=== PATIENT | female | born 1960 | race Caucasian/White ===

== ENCOUNTER 2017-03-02 15:06 | Inpatient (IN) | payer MEDICARE ==
[~2017-03-02] VITALS: Ht 165.1 cm; Wt 110.0 kg
[~2017-03-02 15:06] MED LIST: AMBIEN10 MG PO; ASPIRIN EC81 MG PO; ATENOLOL25 MG PO; ATORVASTATIN CA20 MG PO; BACLOFEN10 MG PO; CLONAZEPAM1 M1 PO; DICYCLOMINE HCL10 MG PO; DOXEPIN HCL25 MG PO; EFFEXOR XR150 MG PO; LEVOTHYROXINE100 MCG PO; NABUMETONE750 MG PO; NEXIUM40 MG PO; OXYCONTIN10 MG PO; TRIAMTERENE-HC1 EAC1 PO
[2017-03-02] MEDS ORDERED: SODIUM CHLORIDE 0.9% 500ML 500 ML IV STA (15:17)
[2017-03-02] MEDS ORDERED: ONDANSETRON HCL INJ 2 MG/ML VIAL IV STA (15:17)
[2017-03-02] MEDS ORDERED: MORPHINE SULFATE 4 MG/ML SYR IV STA (15:17)
[2017-03-02] MEDS ORDERED: METHYLNALTREXONE BROMIDE 12 MG/0.6 ML VIAL SQ SCH ×2 (15:30→15:45)
[2017-03-02] MEDS ORDERED: DIATRIZOATE MEGL/DIATRIZOA SOD 30 ML BTL PO ONE (15:39)
[2017-03-02 16:27] LABS: BASOPHILS # (AUTO) 0.1 (0.0-0.1); BASOPHILS % 0.4 % (0.0-1.0); EOSINOPHILS # (AUTO) 0.1 (0.0-0.4); EOSINOPHILS % 0.7 % (0.0-6.0); HEMATOCRIT 49.1 % (34.2-44.1); HEMOGLOBIN 17.8 g/dL (12.0-16.0); LYMPHOCYTES # (AUTO) 2.4 (1.0-3.2); LYMPHOCYTES % 18.5 % (18.0-39.1); MEAN CORPUSCULAR HEMOGLOBIN 32.1 pg (28-32); MEAN CORPUSCULAR HGB CONC 36.3 g/dL (31-35); MEAN CORPUSCULAR VOLUME 88.5 fL (81-99); MONOCYTES # (AUTO) 0.7 (0.2-0.8); MONOCYTES % 5.1 % (4.4-11.3); NEUTROPHILS # (AUTO) 9.6 (2.1-6.9); NEUTROPHILS % 74.8 % (38.7-80.0); PLATELET COUNT 377 x10e3/uL (140-360); RED BLOOD COUNT 5.55 x10e6/uL (3.6-5.1); RED CELL DISTRIBUTION WIDTH 11.8 % (11.7-14.4)
[2017-03-02 16:44] LABS: ALANINE AMINOTRANSFERASE 24 IU/L (0-55); ALBUMIN 4.6 g/dL (3.5-5.0); ALBUMIN/GLOBULIN RATIO 1.2 (0.8-2.0); ALKALINE PHOSPHATASE 94 IU/L (40-150); ANION GAP 19.8 mmol/L (8-16); BLOOD UREA NITROGEN 13 mg/dL (7-26); BUN/CREATININE RATIO 14 (6-25); CALCIUM 10.1 mg/dL (8.4-10.2); CARBON DIOXIDE 25 mmol/L (22-29); CHLORIDE 96 mmol/L (98-107); CREATINE KINASE 66 IU/L (29-168); CREATININE, SERUM 0.93 mg/dL (0.57-1.11); EST GLOMERULAR FILTRATION RATE > 60 ML/MIN (60-); GLUCOSE 122 mg/dL (74-118); LIPASE 11 U/L (8-78); SODIUM 138 mmol/L (136-145)
[2017-03-02 16:46] LABS: POTASSIUM 2.8 mmol/L (3.5-5.1)
[2017-03-02] MEDS ORDERED: MORPHINE SULFATE 2 MG/ML SYR ONE (16:46)
[2017-03-02 16:51] LABS: TROPONIN I 0.009 ng/mL (0-0.300)
[2017-03-02] MEDS ORDERED: POTASSIUM CHLORIDE 20 MEQ TAB CR PO NR (17:00)
[2017-03-02] MEDS ORDERED: KETOROLAC TROMETHAMINE 30 MG/ML VIAL IV STA (17:02)
[2017-03-02] MEDS ORDERED: PIPER-TAZ 3.375 GM 50 ML IV STA (17:51)
--- NOTE | 2017-03-02 18:01 | Diagnostic Imaging Report ---
EXAMINATION: CHEST SINGLE (PORTABLE) INDICATION: Abdominal pain COMPARISON: None FINDINGS: AP view TUBES and LINES: None. LUNGS: Lungs are not well inflated. Lungs are clear. There is no evidence of pneumonia or pulmonary edema. PLEURA: No pleural effusion or pneumothorax. HEART AND MEDIASTINUM: The cardiomediastinal silhouette is unremarkable. BONES AND SOFT TISSUES: No acute osseous lesion. Anterior cervical fusion plate. Right supraclavicular surgical clips. UPPER ABDOMEN: No free air under the diaphragm. IMPRESSION: Hypoinflated lungs. No acute thoracic abnormality. Signed by: Dr. Bhargav Oliveira M.D. on 03/02/2017 5:58 PM
[2017-03-02] MEDS ORDERED: POTASSIUM CHLORIDE 20 MEQ TAB CR PO STA (18:05)
[2017-03-02] MEDS ORDERED: SODIUM CHLORIDE 0.9% 50ML 50 ML ONE (18:06)
[2017-03-02] MEDS ORDERED: IOPAMIDOL 370 MG/ML 200 ML INFUS..BTL INJ ONE (18:06)
--- NOTE | 2017-03-02 18:20 | Diagnostic Imaging Report ---
EXAM: CT Abdomen and Pelvis WITH contrast INDICATION: \S\r/o divertic sbo appy etc COMPARISON: None. TECHNIQUE: Abdomen and pelvis were scanned utilizing a multidetector helical scanner from the lung base to the pubic symphysis after administration of IV contrast. Coronal and sagittal reformations were obtained. Routine protocol was performed. Scan was performed when during portal venous phase. IV CONTRAST: 100 mL of Isovue 370 ORAL CONTRAST: Gastrografin COMPLICATIONS: None RADIATION DOSE: Total DLP: 753.7 mGy*cm Estimated effective dose: (DLP x 0.015 x size factor) mSv CTDIvol has been reviewed. It is below the limits set by the Radiation Protocol Committee (RPC). FINDINGS: LINES and TUBES: None. LOWER THORAX: Unremarkable HEPATOBILIARY: 0.4 cm too small to characterize hypodensity in segment 4A of the liver (series 2 image 12). No biliary ductal dilation. GALLBLADDER: No radio-opaque stones or sludge. No wall thickening. Gallbladder is distended measuring at least 9.8 cm in length. SPLEEN: No splenomegaly. PANCREAS: No focal masses or ductal dilatation. ADRENALS: No adrenal nodules KIDNEYS/URETERS: Kidneys enhance symmetrically. No hydronephrosis. No cystic or solid mass lesions. No stones. GI TRACT: Majority of the inflammatory changes appears to be centered around the sigmoid colon. However, there are inflammatory changes throughout the abdomen and pelvis. Appendix is partially visualized with appendicoliths but is not distended or have wall thickening. Ascending colon is distended measuring 7.3 cm and transverse colon measures 6.2 cm. There is however no wall thickening or surrounding inflammatory changes. There are inflammatory changes in the left paracolic gutter along the descending colon extending to the sigmoid colon. Remaining small bowel is decompressed. PELVIC ORGANS/BLADDER: Unremarkable. LYMPH NODES: No lymphadenopathy. VESSELS: Unremarkable. PERITONEUM / RETROPERITONEUM: Mild free fluid around the liver, spleen, and the deep pelvis. Scattered free air. BONES: Posterior fusion with transpedicular screws and interconnecting rods at L3 and L4 vertebral bodies. Previous fusion rods and screws extending through L5 vertebral body has been removed. Good osseous fusion at L4-L5 with bone graft. Severe degenerative changes at L2-L3 with severe disc space narrowing and erosive changes. L3 and L4 hemilaminectomy changes. Bony defect in the left iliac crest, likely from bone graft harvesting. SOFT TISSUES: Pelvic floor prolapse. IMPRESSION: 1. Free air free fluid in the abdomen and pelvis. Majority of inflammatory changes is centered around the sigmoid colon, likely representing perforated diverticulitis. 2. Appendix is partially visualized without definite evidence of appendicitis. 3. Distended ascending and transverse colon, likely related to ileus. 4. Gallbladder hydrops without definite stones. 5. Pelvic floor prolapse. Results were discussed with Luis Manuel Su ENVIRONMENTAL SAMPLER by Dr. Oliveira on 03/02/2017 at 6:15 PM. Signed by: Dr. Bhargav Oliveira M.D. on 03/02/2017 6:17 PM
[2017-03-02 18:28] LABS: BILIRUBIN,URINE 1+ (NEGATIVE); KETONES,URINE NEGATIVE (NEGATIVE); LEUKOCYTE ESTERASE ,URINE NEGATIVE (NEGATIVE); NITRITE,URINE NEGATIVE (NEGATIVE); URINE UROBILINOGEN 0.2 mg/dL (0.2 - 1)
[2017-03-02 18:31] LABS: CLARITY,URINE SL CLOUDY (CLEAR); COLOR,URINE YELLOW (YELLOW); PROTEIN,URINE DIPSTICK TRACE (NEGATIVE)
[2017-03-02] MEDS ORDERED: VANCOMYCIN 1GM/NS 250 ML 250 ML IV STA (18:33)
[2017-03-02 18:41] LABS: EPITHELIAL CELLS,URINE RARE /LPF
[2017-03-02] MEDS ORDERED: METRONIDAZOLE 500MG/NS 100ML 100 ML IV SCH ×3 (18:45→22:00)
[2017-03-02] MEDS ORDERED: SODIUM CHLORIDE 0.9% 1000ML 1,000 ML IV SCH ×5 (18:48→23:15)
[2017-03-02] MEDS ORDERED: MORPHINE SULFATE 2 MG/ML SYR IV PRN (19:00)
[2017-03-02] MEDS ORDERED: ONDANSETRON HCL INJ 2 MG/ML VIAL IV PRN (19:00)
[2017-03-02] MEDS ORDERED: SODIUM CHLORIDE FLUSH 10 ML SYR INJ PRN (19:00)
[2017-03-02] MEDS ORDERED: MORPHINE SULFATE 5 MG/ML VIAL IV PRN (19:15)
[2017-03-02] MEDS ORDERED: HYDROMORPHONE 1MG/1ML INJ IV STA ×2 (19:41→20:05)
[2017-03-02] MEDS ORDERED: HYDROMORPHONE 2MG/ML INJ IV SCH ×2 (19:45→20:30)
[2017-03-02] MEDS: METRONIDAZOLE 500MG/NS 100ML 100 ML IV SCH (19:59)
[2017-03-02] MEDS ORDERED: VANCOMYCIN 1GM/NS 250 ML 250 ML IV SCH (21:00)
[2017-03-02] MEDS ORDERED: PIPER-TAZ 3.375 GM 50 ML IV SCH (22:00)
[2017-03-02] MEDS ORDERED: SODIUM CHLORIDE 0.9% 1000ML 1,000 ML IV ONE (22:45)
[2017-03-02] MEDS ORDERED: MORPHINE SULFATE 5 MG/ML VIAL IV ONE (22:45)
[2017-03-02] MEDS ORDERED: POTASSIUM CHLORIDE 20MEQ/100ML 200 ML IV ONE (22:45)
[2017-03-02 22:47] LABS: BASOPHILS % 1.3 % (0.0-1.0); HEMATOCRIT 56.9 % (34.2-44.1); HEMOGLOBIN 20.3 g/dL (12.0-16.0); LYMPHOCYTES # (AUTO) 0.9 (1.0-3.2); LYMPHOCYTES % 37.2 % (18.0-39.1); MEAN CORPUSCULAR HEMOGLOBIN 32.3 pg (28-32); MEAN CORPUSCULAR HGB CONC 35.7 g/dL (31-35); MEAN CORPUSCULAR VOLUME 90.5 fL (81-99); MONOCYTES # (AUTO) 0.2 (0.2-0.8); MONOCYTES % 6.3 % (4.4-11.3); NEUTROPHILS # (AUTO) 1.3 (2.1-6.9); NEUTROPHILS % 54.8 % (38.7-80.0); PLATELET COUNT 381 x10e3/uL (140-360); RED BLOOD COUNT 6.29 x10e6/uL (3.6-5.1)
[2017-03-02 23:06] LABS: ANION GAP 24.5 mmol/L (8-16); CALCIUM 8.6 mg/dL (8.4-10.2); CREATININE, SERUM 1.21 mg/dL (0.57-1.11)
[2017-03-02 23:09] LABS: POTASSIUM 2.5 mmol/L (3.5-5.1)
[2017-03-02 23:10] LABS: ALBUMIN 3.3 g/dL (3.5-5.0)
[2017-03-02 23:13] LABS: INR 0.93; PARTIAL THROMBOPLASTIN TIME 22.6 seconds (23.8-35.5); PROTHROMBIN TIME 12.9 seconds (11.9-14.5)
[2017-03-02] MEDS ORDERED: PIPER-TAZ 3.375 GM 50 ML IV ONE (23:30)
[2017-03-02] MEDS ORDERED: LACTATED RINGER'S 1,000 ML ONE (23:30)
[2017-03-02] MEDS ORDERED: LACTATED RINGER'S 1,000 ML IV ONE (23:30)
[2017-03-03] VITALS (135 sets, daily range): BP systolic 0–162; BP diastolic -1–136
[2017-03-03] MEDS ORDERED: HEPARIN SOD/SOD CHLORIDE 1,000 ML ONE (00:29)
[2017-03-03] MEDS ORDERED: HYDROMORPHONE 1MG/1ML INJ IV PRN (03:15)
[2017-03-03] MEDS ORDERED: SODIUM BICARBONATE 8.4% SYRING 100 ML ONE ×2 (03:51→05:49)
[2017-03-03] MEDS ORDERED: SODIUM BICARBONATE 8.4% INJ 50 ML SYR IV STA ×2 (03:56→05:55)
[2017-03-03] MEDS: SODIUM CHLORIDE 0.9% 250ML IRRIG IR SCH ×6 (04:12→23:46)
[2017-03-03] MEDS ORDERED: ALBUTEROL SULF 0.083% NEB SOLN 3 ML NEB NEB STA (04:20)
[2017-03-03] MEDS ORDERED: IPRATROPIUM BROMIDE 0.02% 2.5 ML NEB NEB STA (04:20)
[2017-03-03] MEDS: SODIUM CHLORIDE 0.9% 1000ML 1,000 ML IV SCH ×5 (04:24→17:34)
[2017-03-03 04:39] LABS: ABG HCO3 14 mmol/L (23-28); ABG PCO2 42 mmHg (41-51); ABG PH 7.14 (7.31-7.41); ABG PO2 76 mmHg (80-105)
[2017-03-03 04:43] LABS: ABG HCO3 21 mmol/L (23-28); ABG PCO2 46 mmHg (41-51); ABG PH 7.26 (7.31-7.41); ABG PO2 64 mmHg (80-105)
[2017-03-03] MEDS: NOREPINEPHRINE BITARTRATE/ NS 250 ML IV PRN ×2 (04:44→22:03)
[2017-03-03 04:53] LABS: BASOPHILS % 0.9 % (0.0-1.0); EOSINOPHILS % 0.5 % (0.0-6.0); HEMATOCRIT 45.7 % (34.2-44.1); LYMPHOCYTES % 46.3 % (18.0-39.1); MEAN CORPUSCULAR HEMOGLOBIN 32.2 pg (28-32); MEAN CORPUSCULAR HGB CONC 35.7 g/dL (31-35); MEAN CORPUSCULAR VOLUME 90.3 fL (81-99); MONOCYTES # (AUTO) 0.1 (0.2-0.8); MONOCYTES % 5.1 % (4.4-11.3); NEUTROPHILS % 46.7 % (38.7-80.0); RED BLOOD COUNT 5.06 x10e6/uL (3.6-5.1); RED CELL DISTRIBUTION WIDTH 12.4 % (11.7-14.4)
[2017-03-03 04:55] LABS: HEMOGLOBIN 16.3 g/dL (12.0-16.0)
[2017-03-03 04:56] LABS: PLATELET COUNT 323 x10e3/uL (140-360)
[2017-03-03 05:07] LABS: ALBUMIN 1.8 g/dL (3.5-5.0); ALBUMIN/GLOBULIN RATIO 0.9 (0.8-2.0); ANION GAP 13.6 mmol/L (8-16)
[2017-03-03 05:13] LABS: CALCIUM 6.8 mg/dL (8.4-10.2); POTASSIUM 2.6 mmol/L (3.5-5.1)
[2017-03-03] MEDS ORDERED: POTASSIUM CHLORIDE 20MEQ/100ML 200 ML ONE (05:28)
[2017-03-03] MEDS ORDERED: CALCIUM CHLORIDE 10% SYRINGE 10 ML IV ONE (05:29)
[2017-03-03] MEDS ORDERED: POTASSIUM CHLORIDE 20MEQ/100ML 200 ML IV ONE ×2 (05:30→18:00)
[2017-03-03] MEDS ORDERED: CALCIUM CHLORIDE 13.6 MEQ in SODIUM CHLORIDE 0.9% 100 ML 100 ML IV ONE (05:30)
[2017-03-03 05:50] LABS: ABG PCO2 37 mmHg (41-51); ABG PH 7.17 (7.31-7.41)
[2017-03-03 05:51] LABS: ABG HCO3 14 mmol/L (23-28); ABG PO2 67 mmHg (80-105)
[2017-03-03] MEDS: PANTOPRAZOLE 40 MG 10ML VIAL IV SCH (05:54)
[2017-03-03] MEDS ORDERED: PIPER-TAZ 3.375 GM 50 ML IV SCH (06:00)
[2017-03-03] MEDS ORDERED: VANCOMYCIN 1GM/NS 250 ML 250 ML IV SCH (06:00)
[2017-03-03] MEDS ORDERED: MEROPENEM 1GM 100 ML IV SCH (06:00)
[2017-03-03] MEDS: MEROPENEM 1 GM VIAL IV SCH ×3 (07:05→21:34)
--- NOTE | 2017-03-03 07:12 | Diagnostic Imaging Report ---
EXAMINATION: CHEST SINGLE (PORTABLE) INDICATION: Tube placement COMPARISON: 03/02/2017 FINDINGS: AP view TUBES and LINES: Interval placement of endotracheal, NG tube and right IJ central line catheter. The NG tube tip appears within the left upper quadrant. Advancement is recommended. LUNGS: Lungs are not well inflated. There are bibasilar atelectasis. There is no evidence of pneumonia or pulmonary edema. PLEURA: No pleural effusion or pneumothorax. HEART AND MEDIASTINUM: The cardiomediastinal silhouette is unremarkable. BONES AND SOFT TISSUES: No acute osseous lesion. Anterior cervical fusion plate and surgical clips are visualized. Right supraclavicular surgical clips. UPPER ABDOMEN: No free air under the diaphragm. IMPRESSION: No acute intrathoracic abnormality. Tubes and lines are in good position. NG tube can be advanced Signed by: Dr. Erlin Kelly M.D. on 03/03/2017 7:08 AM
[2017-03-03] MEDS ORDERED: MIDAZOLAM HCL 2 MG/2 ML VIAL IV ONE (07:30)
[2017-03-03] MEDS ORDERED: SODIUM CHLORIDE 0.9% 1000ML 1,000 ML IV ONE ×5 (07:30→21:45)
[2017-03-03] MEDS ORDERED: LORAZEPAM 1 MG TAB PO ONE (07:30)
[2017-03-03] MEDS ORDERED: ALBUMIN 5% 250ML IV ONE (07:30)
[2017-03-03] MEDS ORDERED: ALBUMIN HUMAN 50 ML IV ONE ×2 (07:45→16:48)
[2017-03-03] MEDS: LORAZEPAM 1 MG TAB PO SCH ×3 (07:53→18:02)
[2017-03-03] MEDS: VASOPRESSIN 100 UNIT in DEXTROSE 5% 100ML 100 ML IV SCH (08:21)
[2017-03-03 08:28] LABS: BAND NEUTROPHILS % (MANUAL) 4 %; BLAST CELLS % MANUAL 2; EOSINOPHILS % (MANUAL) 2 % (0-7); LYMPHOCYTES % (MANUAL) 35 % (19-48); MONOCYTES % (MANUAL) 5 % (3.4-9.0); NEUTROPHILS % (MANUAL) 41 % (40-74)
[2017-03-03 08:30] LABS: ANISOCYTOSIS SLIGHT; PLATELET ESTIMATE ADEQUATE; PLATELET MORPHOLOGY COMMENT FEW LARGE; RBC MORPHOLOGY COMMENT NORMAL
[2017-03-03] MEDS ORDERED: FAMOTIDINE 20 MG/2 ML VIAL IV SCH (09:00)
--- NOTE | 2017-03-03 09:24 | Operative Report ---
DATE OF PROCEDURE: March 03, 2017 PREOPERATIVE DIAGNOSES 1. Peritonitis. 2. Septic shock. 3. Perforated viscus. POSTOPERATIVE DIAGNOSES 1. Peritonitis. 2. Septic shock secondary to sigmoid perforation with massive fecal peritonitis. OPERATIONS PERFORMED 1. Exploratory laparotomy. 2. Sigmoid colectomy and colostomy and Elsy's pouch. 3. Copious peritoneal lavage. ANESTHESIA: General. COMPLICATIONS: Hypotension. ESTIMATED BLOOD LOSS: 100 mL. DESCRIPTION OF PROCEDURE: With the patient lying in bed in the supine position, a good general endotracheal anesthesia, the abdomen was prepped with Betadine solution, draped in the usual manner. A midline incision was made, was carried down through the subcutaneous tissue and through the midline fascia. The peritoneum was opened and the abdomen was entered immediately upon entering the abdominal cavity. A large amount of liquid stool came pouring out of the intra-abdominal cavity. There were at least a liter of fecal fluid in the intra-abdominal cavity. In the area of the pelvis, there were large solid pieces of stool that had to be taken down by hand representing large amounts of fecal material. All of this was slowly and carefully removed. We were then able to explore the abdomen. The fecal material encompassed the entire abdominal cavity in all 4 quadrants. With pieces of also of food material also all over the abdominal cavity. There was a large hole in the sigmoid colon that was at least an inch in size. Representing about half of the circumference of the sigmoid colon. This appeared to be just blown out of the colon rather than a diverticular perforation as this was much larger than which we would see with a diverticular perforation and the edges seemed to be clean without an inflammatory reaction as we would normally see from a perforated diverticulitis. Suspicion is of perhaps this had could have been stercoral ulcer that blew out on the sigmoid colon secondary to the patient's use of pain medication and chronic constipation. The colon was then mobilized off of the lateral gutter and divided proximally and distal to the perforation in the sigmoid colon with 2 applications of a KRISHNA-75 stapler. The mesentery was divided using the EnSeal device and the specimen was sent for pathological examination. After this was done, we spent an extensive amount of time lavaging the intra-abdominal cavity and removing all of the fecal material as best as best as we could. The bowel was run from one end to the other. There was a lot of inflammatory reaction around the cecum as well with the cecum itself appeared to be viable. All of the particulate manner was removed and the many, many liters of saline solution were utilized to lavage the intra-abdominal cavity until the effluent came back perfectly clear from all the quadrants. Once this was done, the proximal colon, which was at the level of the descending colon was then prepared for a colostomy and freed up, so that it would reach the abdominal wall without any tension. A small part of skin was removed from the left midabdomen, and a cruciate incision was carried in the rectus muscle and tunnel was created to deliver the colon and the colon was then brought out without any tension through the colostomy site. After this was done, hemostasis was ascertained and the 10-flat Chun-Finnegan was left in the pelvis and brought out through a separate stab wound incision. The peritoneum was closed with a running suture of #1 Vicryl. The midline fascia was closed with a running suture of #1 PDS. Subcutaneous tissue was copiously lavaged and 1/4-inch Chris drain was left in the subcutaneous tissue and the skin was very loosely closed with scott. The colostomy was then matured with interrupted sutures of 3-0 Vicryl. Dressings and a colostomy appliance were placed. Sponge, lap, and needle count was correct. The patient tolerated the procedure well with some episodes of hypotension and returned to the intensive care unit intubated and in very critical condition. Job#: [id number] CQ
[2017-03-03 10:39] LABS: BASOPHILS % 0.8 % (0.0-1.0); EOSINOPHILS % 0.6 % (0.0-6.0); HEMOGLOBIN 14.6 g/dL (12.0-16.0); LYMPHOCYTES # (AUTO) 1.1 (1.0-3.2); LYMPHOCYTES % 29.7 % (18.0-39.1); MEAN CORPUSCULAR HGB CONC 35.6 g/dL (31-35); MEAN CORPUSCULAR VOLUME 89.9 fL (81-99); MONOCYTES # (AUTO) 0.1 (0.2-0.8); MONOCYTES % 3.1 % (4.4-11.3); NEUTROPHILS # (AUTO) 2.3 (2.1-6.9); PLATELET COUNT 292 x10e3/uL (140-360); RED BLOOD COUNT 4.56 x10e6/uL (3.6-5.1); RED CELL DISTRIBUTION WIDTH 12.5 % (11.7-14.4)
[2017-03-03] MEDS: MIDAZOLAM HCL 2 MG/2 ML VIAL IV PRN (11:10)
[2017-03-03 11:32] LABS: BILIRUBIN,URINE NEGATIVE (NEGATIVE); KETONES,URINE NEGATIVE (NEGATIVE); LEUKOCYTE ESTERASE ,URINE TRACE (NEGATIVE); NITRITE,URINE NEGATIVE (NEGATIVE); URINE UROBILINOGEN 0.2 mg/dL (0.2 - 1)
[2017-03-03 11:47] LABS: PROTEIN,URINE DIPSTICK 1+ (NEGATIVE)
[2017-03-03 11:48] LABS: CLARITY,URINE SL CLOUDY (CLEAR); COLOR,URINE YELLOW (YELLOW)
[2017-03-03 11:49] LABS: BACTERIA,URINE RARE /HPF; EPITHELIAL CELLS,URINE RARE /LPF; TRANSITIONAL EPI CELLS,URINE RARE; WBC,URINE (MAN) 0-5 /HPF (0-5)
[2017-03-03 11:51] LABS: HYALINE CASTS >15 (0-1)
[2017-03-03 11:56] LABS: ABG HCO3 12 mmol/L (23-28); ABG PCO2 21 mmHg (41-51); ABG PH 7.37 (7.31-7.41); ABG PO2 71 mmHg (80-105)
[2017-03-03] MEDS: METRONIDAZOLE 500MG/NS 100ML 100 ML IV SCH ×2 (12:00→20:36)
[2017-03-03] MEDS: CITRIC ACID/SODIUM CITRATE 30 ML UDC GT SCH ×2 (12:49→18:01)
[2017-03-03] MEDS: MIDAZOLAM HCL 25 MG in SODIUM CHLORIDE 0.9% 50ML 45 ML IV PRN (12:50)
[2017-03-03] MEDS: PROMETHAZINE 12.5MG/ NACL 0.9% 12.5 MG/50 ML BAG IV PRN (13:12)
[2017-03-03] MEDS ORDERED: LORAZEPAM INJ 2 MG/ML VIAL ONE (13:51)
[2017-03-03 13:56] LABS: ANISOCYTOSIS SLIGHT; PLATELET ESTIMATE ADEQUATE; RBC MORPHOLOGY COMMENT NORMAL
[2017-03-03 13:57] LABS: PLATELET MORPHOLOGY COMMENT FEW LARGE
[2017-03-03] MEDS ORDERED: LACTATED RINGER'S 1,000 ML ONE (13:59)
[2017-03-03] MEDS ORDERED: METOPROLOL TARTRATE INJ 1 MG/ML VIAL IV ONE (14:45)
--- NOTE | 2017-03-03 14:53 | Consultation ---
DATE OF CONSULTATION: March 03, 2017 PULMONARY CONSULTATION Patient of Dr. Lennon. An unfortunate 56-year-old woman admitted with excruciating abdominal pain. Found to have perforated sigmoid colon. Underwent sigmoid colectomy and Elsy's pouch. ALLERGIES: SHE HAS A HISTORY OF ALLERGY TO METHADONE AND UNKNOWN ANTIBIOTIC GIVEN AT [facility] AFTER A STAPH INFECTION OF HER BACK WOUND. She has had multiple back surgeries. MEDICATIONS: Include aspirin, Lipitor, Baclofen, dicyclomine, doxepin, Nexium, oxycodone, Ambien, atenolol, clonazepam, nabumetone, Dyazide, and Effexor. She is disabled. 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 Drinks 3-4 drinks a day according to her family. She has a history of snoring. Had a negative sleep study in the past. Has had multiple back surgeries and one complicated by staph infection. PHYSICAL EXAMINATION GENERAL: This is a well-developed white female awake, intubated orally. OG tube is in place. LUNGS: Few rhonchi. HEART: Regular rhythm. ABDOMEN: Colostomy and surgical wound. EXTREMITIES: Trace edema. IMPRESSION 1. Septic shock. 2. Hemodilution. 3. Fecal peritonitis. Gravely ill. Discussed at length with the patient and her family. Plan IV fluids. Attempt therapy for septic shock and lactic acidosis. Thank you for this kind referral. Job#: [id number] AK
[2017-03-03] MEDS: PROPOFOL IV EMULSION 10MG/ML 100 ML IV PRN ×2 (16:00→22:31)
[2017-03-03 16:51] LABS: BASOPHILS % 0.8 % (0.0-1.0); EOSINOPHILS % 0.4 % (0.0-6.0); HEMOGLOBIN 14.7 g/dL (12.0-16.0); LYMPHOCYTES # (AUTO) 1.1 (1.0-3.2); LYMPHOCYTES % 22.5 % (18.0-39.1); MEAN CORPUSCULAR HEMOGLOBIN 32.5 pg (28-32); MEAN CORPUSCULAR HGB CONC 35.9 g/dL (31-35); MEAN CORPUSCULAR VOLUME 90.5 fL (81-99); MONOCYTES # (AUTO) 0.2 (0.2-0.8); MONOCYTES % 4.2 % (4.4-11.3); NEUTROPHILS # (AUTO) 3.6 (2.1-6.9); NEUTROPHILS % 70.5 % (38.7-80.0); PLATELET COUNT 287 x10e3/uL (140-360); RED BLOOD COUNT 4.53 x10e6/uL (3.6-5.1); RED CELL DISTRIBUTION WIDTH 12.6 % (11.7-14.4)
[2017-03-03] MEDS: ACETAMINOPHEN 1000 MG/100 ML IV PRN ×2 (16:58→23:37)
[2017-03-03 17:00] LABS: INR 1.36; PROTHROMBIN TIME 17.5 seconds (11.9-14.5)
[2017-03-03 17:01] LABS: PARTIAL THROMBOPLASTIN TIME 40.7 seconds (23.8-35.5)
[2017-03-03 17:08] LABS: ANION GAP 15.9 mmol/L (8-16); CALCIUM 7.4 mg/dL (8.4-10.2); CREATININE, SERUM 1.41 mg/dL (0.57-1.11); MAGNESIUM 2.5 MG/DL (1.3-2.1)
[2017-03-03 17:09] LABS: POTASSIUM 2.9 mmol/L (3.5-5.1)
[2017-03-03] MEDS: VENLAFAXINE HCL 75 MG TAB PO SCH (17:33)
[2017-03-03] MEDS ORDERED: PHENYLEPHRINE HCL 1% 10 MG/ML VIAL ONE (17:51)
[2017-03-03] MEDS ORDERED: PROPOFOL IV EMULSION 10 MG/ML 20 ML VIAL ONE (17:51)
[2017-03-03] MEDS ORDERED: ETOMIDATE 2 MG/ML 10 ML INJ IV ONE (17:51)
[2017-03-03] MEDS ORDERED: DESFLURANE 240 ML BTL INH ONE (17:51)
[2017-03-03] MEDS ORDERED: LIDOCAINE HCL 2% LOCAL INJ 5 ML SDV VIAL INJ ONE (17:51)
[2017-03-03] MEDS ORDERED: ROCURONIUM BROMIDE 10 MG/ML 5ML VIAL ONE (17:51)
[2017-03-03 17:58] LABS: ABG HCO3 11 mmol/L (23-28); ABG PCO2 19 mmHg (41-51); ABG PH 7.38 (7.31-7.41); ABG PO2 54 mmHg (80-105)
[2017-03-03] MEDS ORDERED: FENTANYL CITRATE/PF 100MCG/2 ML INJ ONE (18:22)
[2017-03-03] MEDS ORDERED: MIDAZOLAM HCL 2 MG/2 ML VIAL ONE (18:22)
[2017-03-03] MEDS ORDERED: DIGOXIN INJ 0.25 MG/ML 2 ML AMP IV ONE (18:30)
[2017-03-03] MEDS ORDERED: SODIUM CHLORIDE 0.9% 1000ML 1,000 ML ONE ×2 (19:16→20:24)
[2017-03-03] MEDS: THIAMINE HCL INJ 100 MG/ML 2ML VIAL IM SCH (20:38)
[2017-03-03] MEDS: HYDROMORPHONE 2MG/ML INJ IV PRN (22:04)
[2017-03-03] MEDS ORDERED: SODIUM CHLORIDE 0.9% 1000ML 500 ML IV ONE (23:15)
[2017-03-04] VITALS (120 sets, daily range): BP systolic 44–146; BP diastolic 21–119
[2017-03-04] MEDS: CITRIC ACID/SODIUM CITRATE 30 ML UDC GT SCH ×2 (00:10→06:14)
[2017-03-04] MEDS: SODIUM CHLORIDE 0.9% 1000ML 1,000 ML IV SCH ×5 (00:10→22:17)
[2017-03-04] MEDS: LORAZEPAM 1 MG TAB PO SCH ×6 (01:38→20:54)
[2017-03-04] MEDS: PROPOFOL IV EMULSION 10MG/ML 100 ML IV PRN ×7 (01:51→23:17)
[2017-03-04] MEDS: SODIUM CHLORIDE 0.9% 250ML IRRIG IR SCH ×6 (03:27→22:17)
[2017-03-04] MEDS: METRONIDAZOLE 500MG/NS 100ML 100 ML IV SCH ×3 (03:27→20:20)
[2017-03-04] MEDS ORDERED: SODIUM CHLORIDE 0.9% 1000ML 1,000 ML IV ONE (06:00)
[2017-03-04 06:07] LABS: BASOPHILS % 0.2 % (0.0-1.0); EOSINOPHILS % 0.2 % (0.0-6.0); HEMATOCRIT 37.8 % (34.2-44.1); HEMOGLOBIN 13.9 g/dL (12.0-16.0); LYMPHOCYTES # (AUTO) 1.2 (1.0-3.2); LYMPHOCYTES % 9.2 % (18.0-39.1); MEAN CORPUSCULAR HEMOGLOBIN 33.2 pg (28-32); MEAN CORPUSCULAR HGB CONC 36.8 g/dL (31-35); MEAN CORPUSCULAR VOLUME 90.2 fL (81-99); MONOCYTES # (AUTO) 0.2 (0.2-0.8); MONOCYTES % 1.9 % (4.4-11.3); NEUTROPHILS # (AUTO) 10.2 (2.1-6.9); NEUTROPHILS % 80.9 % (38.7-80.0); PLATELET COUNT 250 x10e3/uL (140-360); RED BLOOD COUNT 4.19 x10e6/uL (3.6-5.1); RED CELL DISTRIBUTION WIDTH 13.2 % (11.7-14.4)
[2017-03-04] MEDS: PANTOPRAZOLE 40 MG 10ML VIAL IV SCH (06:14)
[2017-03-04] MEDS: MEROPENEM 1 GM VIAL IV SCH ×3 (06:14→20:54)
[2017-03-04] MEDS: LEVOTHYROXINE SODIUM 100 MCG TAB PO SCH (06:14)
[2017-03-04 06:17] LABS: INR 1.46; PROTHROMBIN TIME 18.5 seconds (11.9-14.5)
[2017-03-04 06:26] LABS: ALBUMIN/GLOBULIN RATIO 0.6 (0.8-2.0); ANION GAP 17.6 mmol/L (8-16); CALCIUM 7.2 mg/dL (8.4-10.2); CREATININE, SERUM 1.46 mg/dL (0.57-1.11); POTASSIUM 3.6 mmol/L (3.5-5.1)
[2017-03-04] MEDS: VASOPRESSIN 100 UNIT in DEXTROSE 5% 100ML 100 ML IV SCH (07:29)
[2017-03-04] MEDS: MIDAZOLAM HCL 25 MG in SODIUM CHLORIDE 0.9% 50ML 45 ML IV PRN (07:51)
[2017-03-04] MEDS: NOREPINEPHRINE BITARTRATE/ NS 250 ML IV PRN ×2 (07:51→20:55)
[2017-03-04] MEDS: MIDAZOLAM HCL 2 MG/2 ML VIAL IV PRN (07:51)
[2017-03-04 08:32] LABS: ANISOCYTOSIS MODERATE; BAND NEUTROPHILS % (MANUAL) 40 %; LYMPHOCYTES % (MANUAL) 8 % (19-48); METAMYELOCYTES % (MANUAL) 3 % (0-0); MONOCYTES % (MANUAL) 3 % (3.4-9.0); MYELOCYTES % (MANUAL) 2 % (0-0); NEUTROPHILS % (MANUAL) 42 % (40-74); RBC MORPHOLOGY COMMENT ABNORMAL; SMUDGE CELLS FEW
[2017-03-04 08:35] LABS: PLATELET ESTIMATE ADEQUATE; PLATELET MORPHOLOGY COMMENT NORMAL
[2017-03-04] MEDS: VENLAFAXINE HCL 75 MG TAB PO SCH (09:00)
[2017-03-04] MEDS: FENTANYL CITRATE INJ 2,000 MCG in SODIUM CHLORIDE 0.9% 250ML 210 ML IV PRN (09:00)
[2017-03-04] MEDS ORDERED: SODIUM BICARBONATE 8.4% SYRING 150 ML in DEXTROSE 5% 1,000 ML IV ONE (09:45)
[2017-03-04] MEDS: HYDROMORPHONE 2MG/ML INJ IV PRN (10:00)
--- NOTE | 2017-03-04 13:37 | Consultation ---
DATE OF CONSULTATION: INFECTIOUS DISEASE CONSULTATION HISTORY OF PRESENT ILLNESS: This is a 56-year-old white female who is currently in the hospital status post surgery. Apparently she has history of obesity, history of chronic constipation, and she comes in with abdominal pain that started suddenly. When she came to the emergency room, she was found to have sepsis, septic shock, peritonitis, sigmoid perforation. She underwent exploratory laparotomy. She was found to have sigmoid colectomy and colostomy with Elsy's pouch also. There were stools in the peritoneum. Infectious Disease was consulted today to make recommendation in terms of antibiotic. Patient is currently intubated, sedated, had surgery as mentioned above, on vasopressors. When she first came, her white count was 2.39, today is 12.64. Her hemoglobin was 20 on admission, today is 13.9. Her platelet is at 250. Sodium 142, potassium 3.6. Creatinine 1.46, it was 1.41 was admission. AST 482, ALT of 136. The patient is currently on sodium, Dilaudid, norepinephrine, levothyroxine, meropenem 1 gram q.8, metronidazole. PHYSICAL EXAMINATION: GENERAL: She is currently intubated, sedated. VITALS: Stable. Currently afebrile. HEENT: She does not appear icteric. NECK: Supple. CHEST: A few crackles at the bases. HEART: S1/S2. No S3, no S4. No murmur. ABDOMEN: Soft. Bowel sounds hypoactive. EXTREMITIES: No edema. IMPRESSION: 1. Sepsis, septic shock secondary to peritonitis secondary to perforated colon, status post surgery as mentioned above. 2. Acute tubular necrosis, may be chronic kidney disease. 3. Obesity. Agree with meropenem, will adjust her dose to 500 q.12. What I will do, will give her also vancomycin. Recheck CBC. Recheck chem panel. Will follow with you. Discussed with the family. Job#: [id number] EDER
--- NOTE | 2017-03-04 13:50 | Consultation ---
DATE OF CONSULTATION: March 04, 2017 CARDIOLOGY CONSULTATION REQUESTING PHYSICIAN: Dr. Florez. REASON FOR CONSULTATION: Tachycardia. HISTORY OF PRESENT ILLNESS: This is a 56-year-old woman who presented to [facility] with complaints of abdominal pain, who was found to have a perforated sigmoid colon and underwent exploratory laparotomy, sigmoid colectomy, colostomy, and Elsy's pouch with copious peritoneal lavage by Dr. Florez. She was then transferred to the ICU intubated and sedated. Hospital course complicated by septic shock due to fecal peritonitis. Cardiology was consulted for sinus tachycardia. No history could be obtained due to the patient's intubation and sedation. REVIEW OF SYSTEMS: Unable to obtain secondary to intubation and sedation. PAST MEDICAL HISTORY: No known past medical history, although based on the review of the records and the patient's daughter, it appears patient has fibromyalgia, hypothyroidism, hyperlipidemia. PAST SURGICAL HISTORY: Back surgeries. ALLERGIES: PLEASE SEE EMR. MEDICATIONS: Please see medication list. SOCIAL HISTORY: Remote smoking, apparently drinks 3 drinks a day. No illicit drugs. FAMILY HISTORY: Noncontributory. PHYSICAL EXAMINATION VITAL SIGNS: Temperature 103.1, pulse 146, respiratory rate 14, blood pressure 102/70, oxygen saturation 94% on mechanical ventilation. GENERAL: Obese woman, intubated and sedated, in no acute distress. HEENT: Normocephalic, atraumatic. NECK: Supple. No thyromegaly or cervical lymphadenopathy. No carotid bruits. CARDIOVASCULAR: Tachycardic, but regular. No murmur. Normal S1 and S2. LUNGS: Clear to auscultation bilaterally in anterior lung ivory. No wheezes or crackles. ABDOMEN: Surgical dressing is noted with colostomy. EXTREMITIES: 1+ pitting edema. NEURO: Unable to obtain secondary to sedation. LABS: WBC 12.64, hemoglobin 13.9, hematocrit 37.8, platelets 250. Sodium 142, potassium 3.6, chloride 117, CO2 11, BUN 22, creatinine 1.46. AST 492, ALT 176. EKG, appears to be sinus tachycardia with extensive ST and T changes. IMPRESSION 1. Septic shock. 2. Fecal peritonitis. 3. Perforated sigmoid colon status post exploratory laparotomy, sigmoid colectomy, colostomy and Elsy's pouch. 4. Sinus tachycardia. RECOMMENDATIONS: Continue fluid and pressor support as necessary for the patient's septic shock. Antibiotics per infectious disease. On review of telemetry and EKG, it appears the patient is in sinus tachycardia, which given patient's current condition is most likely a physiologic response to her current septic shock and illness. Would avoid AV marcia blocking agents as she is requiring significant amounts of vasopressin and Levophed for blood pressure support. She will need echocardiogram once heart rate is better controlled. In the meantime, supportive care for patient's sepsis. Thank you for this consult. We will continue to follow. Job#: [id number] KAT
[2017-03-04] MEDS: VANCOMYCIN 1GM/NS 250 ML 250 ML IV SCH (15:00)
[2017-03-04] MEDS ORDERED: ACETAMINOPHEN 1000 MG/100 ML 100 ML IV ONE (19:20)
[2017-03-04] MEDS ORDERED: SODIUM CHLORIDE 0.9% 250ML 250 ML ONE (19:21)
[2017-03-04] MEDS ORDERED: ACETAMINOPHEN 1000 MG/100 ML IV PRN (19:30)
[2017-03-04] MEDS: THIAMINE HCL INJ 100 MG/ML 2ML VIAL IM SCH (20:54)
[2017-03-04] MEDS ORDERED: MEROPENEM 1GRAM 1 GM in SODIUM CHLORIDE 0.9% 100 ML 100 ML IV SCH (21:00)
[2017-03-05] VITALS (132 sets, daily range): BP systolic 45–157; BP diastolic 29–91
[2017-03-05] MEDS: LORAZEPAM 1 MG TAB PO SCH ×6 (01:32→22:00)
[2017-03-05] MEDS: SODIUM CHLORIDE 0.9% 250ML IRRIG IR SCH ×6 (02:30→23:15)
[2017-03-05] MEDS: FENTANYL CITRATE INJ 2,000 MCG in SODIUM CHLORIDE 0.9% 250ML 210 ML IV PRN (02:52)
[2017-03-05] MEDS: NOREPINEPHRINE BITARTRATE/ NS 250 ML IV PRN (02:55)
[2017-03-05] MEDS: METRONIDAZOLE 500MG/NS 100ML 100 ML IV SCH ×3 (03:23→20:00)
[2017-03-05] MEDS: HYDROMORPHONE 2MG/ML INJ IV PRN (04:23)
[2017-03-05] MEDS: PROPOFOL IV EMULSION 10MG/ML 100 ML IV PRN (04:24)
[2017-03-05] MEDS: PANTOPRAZOLE 40 MG 10ML VIAL IV SCH (05:54)
[2017-03-05] MEDS: SODIUM CHLORIDE 0.9% 1000ML 1,000 ML IV SCH ×2 (05:54→14:27)
[2017-03-05] MEDS: LEVOTHYROXINE SODIUM 100 MCG TAB PO SCH (05:54)
[2017-03-05 06:24] LABS: BASOPHILS % 0.1 % (0.0-1.0); EOSINOPHILS # (AUTO) 0.1 (0.0-0.4); EOSINOPHILS % 0.5 % (0.0-6.0); HEMOGLOBIN 12.3 g/dL (12.0-16.0); LYMPHOCYTES # (AUTO) 1.1 (1.0-3.2); LYMPHOCYTES % 6.9 % (18.0-39.1); MEAN CORPUSCULAR HEMOGLOBIN 33.7 pg (28-32); MEAN CORPUSCULAR HGB CONC 36.2 g/dL (31-35); MEAN CORPUSCULAR VOLUME 93.2 fL (81-99); MONOCYTES # (AUTO) 0.7 (0.2-0.8); MONOCYTES % 4.4 % (4.4-11.3); NEUTROPHILS # (AUTO) 12.7 (2.1-6.9); NEUTROPHILS % 80.8 % (38.7-80.0); PLATELET COUNT 153 x10e3/uL (140-360); RED BLOOD COUNT 3.65 x10e6/uL (3.6-5.1); RED CELL DISTRIBUTION WIDTH 13.9 % (11.7-14.4)
[2017-03-05 06:42] LABS: ALANINE AMINOTRANSFERASE 285 IU/L (0-55); ALBUMIN 1.5 g/dL (3.5-5.0); ALBUMIN/GLOBULIN RATIO 0.4 (0.8-2.0); ALKALINE PHOSPHATASE 190 IU/L (40-150); ANION GAP 13.9 mmol/L (8-16); BLOOD UREA NITROGEN 17 mg/dL (7-26); BUN/CREATININE RATIO 19 (6-25); CARBON DIOXIDE 19 mmol/L (22-29); CHLORIDE 113 mmol/L (98-107); EST GLOMERULAR FILTRATION RATE > 60 ML/MIN (60-); GLUCOSE 98 mg/dL (74-118); SODIUM 143 mmol/L (136-145)
[2017-03-05 06:52] LABS: POTASSIUM 2.9 mmol/L (3.5-5.1)
[2017-03-05] MEDS ORDERED: SODIUM BICARBONATE 8.4% 50 ML VIAL IV STA (06:55)
--- NOTE | 2017-03-05 07:06 | Diagnostic Imaging Report ---
EXAMINATION: CHEST SINGLE (PORTABLE) INDICATION: Sepsis. COMPARISON: 03/03/2017 FINDINGS: TUBES and LINES: Endotracheal, NG tube and right IJ central line catheters are stable LUNGS: Lungs are not well inflated. Persistent left lower lobe atelectasis. There is no evidence of pneumonia or pulmonary edema. PLEURA: No pleural effusion or pneumothorax. HEART AND MEDIASTINUM: The cardiomediastinal silhouette is unremarkable. BONES AND SOFT TISSUES: No acute osseous lesion. Soft tissues are unremarkable. UPPER ABDOMEN: No free air under the diaphragm. IMPRESSION: 1. No acute thoracic abnormality. 2. Stable chest. Signed by: Dr. Erlin Kelly M.D. on 03/05/2017 7:03 AM
[2017-03-05] MEDS ORDERED: SODIUM BICARBONATE 8.4% INJ 50 ML SYR IV NR (07:15)
[2017-03-05] MEDS: VASOPRESSIN 100 UNIT in DEXTROSE 5% 100ML 100 ML IV SCH (07:29)
[2017-03-05] MEDS ORDERED: POTASSIUM CHLORIDE 20MEQ/100ML 200 ML IV ONE ×2 (07:30→18:30)
[2017-03-05 07:42] LABS: BAND NEUTROPHILS % (MANUAL) 27 %; EOSINOPHILS % (MANUAL) 1 % (0-7); LYMPHOCYTES % (MANUAL) 6 % (19-48); MONOCYTES % (MANUAL) 7 % (3.4-9.0); MYELOCYTES % (MANUAL) 1 % (0-0); NEUTROPHILS % (MANUAL) 57 % (40-74)
[2017-03-05 07:43] LABS: PLATELET ESTIMATE ADEQUATE; RBC MORPHOLOGY COMMENT ABNORMAL
[2017-03-05 07:44] LABS: ANISOCYTOSIS MODERATE; SMUDGE CELLS FEW; TEAR DROP CELLS FEW
[2017-03-05] MEDS: VENLAFAXINE HCL 75 MG TAB PO SCH (09:00)
[2017-03-05] MEDS: MEROPENEM 1 GM VIAL IV SCH ×2 (10:00→21:03)
--- NOTE | 2017-03-05 14:21 | Progress Note ---
DATE: March 05, 2017 CARDIOLOGY PROGRESS NOTE SUBJECTIVE: The patient remains intubated and sedated. Her tachycardia has improved. OBJECTIVE VITAL SIGNS: Temperature 98.2 degrees, pulse 110, respiratory rate 14, blood pressure 117/63. Oxygen saturation is 98% on mechanical ventilation. GENERAL: Obese woman, intubated and sedated, in no acute distress. LUNGS: Clear to auscultation bilaterally. No wheezes or crackles. CARDIOVASCULAR: Tachycardic but regular. No murmurs. Normal S1 and S2. ABDOMEN: Soft. Surgical dressing is noted and colostomy. EXTREMITIES: Diffuse anasarca. CARDIAC MEDICATIONS 1. Levothyroxine 100 mcg p.o. daily. 2. Levophed 10 mcg per minute. 3. Vasopressin 0.03 units per minute. LABS: WBC 15.75, hemoglobin 12.3, hematocrit 34, platelets 153. Sodium 143, potassium 2.9, chloride 113, CO2 19, BUN 17, creatinine 0.9. AST 572, ALT 285. TELEMETRY: Sinus tachycardia. IMPRESSION 1. Septic shock. 2. Fecal peritonitis. 3. Perforated sigmoid colon status post exploratory laparotomy, sigmoid colectomy, colostomy and Elsy pouch. 4. Sinus tachycardia. 5. Acute kidney injury, resolved. 6. Elevated liver function tests, suspect shock liver. RECOMMENDATIONS: Continue fluid and pressor support as necessary for the patient's septic shock. Her pressor requirements are decreasing, and her tachycardia has improved. Antibiotics per infectious disease. The patient's tachycardia is a physiologic response to her current septic shock and illness. Avoid AV marcia blocking agents due to her pressor requirements. She will need an echocardiogram once her heart rate is better controlled. In the meantime, supportive care for patient's sepsis. Thank you for this consult. We will continue to follow. Job#: [id number]
[2017-03-05] MEDS: VANCOMYCIN 1GM/NS 250 ML 250 ML IV SCH (14:28)
[2017-03-05] MEDS: THIAMINE HCL INJ 100 MG/ML 2ML VIAL IM SCH (21:03)
[2017-03-06] VITALS (118 sets, daily range): BP systolic 84–141; BP diastolic 17–94
[2017-03-06] MEDS: LORAZEPAM 1 MG TAB PO SCH ×3 (01:33→10:00)
[2017-03-06] MEDS: SODIUM CHLORIDE 0.9% 1000ML 1,000 ML IV SCH ×3 (02:17→23:14)
[2017-03-06] MEDS: SODIUM CHLORIDE 0.9% 250ML IRRIG IR SCH ×5 (03:15→19:15)
[2017-03-06] MEDS: METRONIDAZOLE 500MG/NS 100ML 100 ML IV SCH ×3 (03:39→20:19)
[2017-03-06] MEDS: HYDROMORPHONE IV PRN (03:40)
[2017-03-06] MEDS: SODIUM CHLORIDE 0.9% IV PRN (03:40)
[2017-03-06] MEDS: NOREPINEPHRINE BITARTRATE/ NS 250 ML IV PRN (03:41)
[2017-03-06] MEDS: MIDAZOLAM HCL 25 MG in SODIUM CHLORIDE 0.9% 50ML 45 ML IV PRN (03:41)
[2017-03-06 05:35] LABS: BASOPHILS % 0.1 % (0.0-1.0); EOSINOPHILS # (AUTO) 0.2 (0.0-0.4); EOSINOPHILS % 1.6 % (0.0-6.0); HEMATOCRIT 31.8 % (34.2-44.1); HEMOGLOBIN 11.2 g/dL (12.0-16.0); LYMPHOCYTES # (AUTO) 0.6 (1.0-3.2); LYMPHOCYTES % 4.5 % (18.0-39.1); MEAN CORPUSCULAR HEMOGLOBIN 32.6 pg (28-32); MEAN CORPUSCULAR HGB CONC 35.2 g/dL (31-35); MEAN CORPUSCULAR VOLUME 92.4 fL (81-99); MONOCYTES # (AUTO) 0.8 (0.2-0.8); MONOCYTES % 5.6 % (4.4-11.3); NEUTROPHILS # (AUTO) 11.3 (2.1-6.9); NEUTROPHILS % 82.9 % (38.7-80.0); PLATELET COUNT 135 x10e3/uL (140-360); RED BLOOD COUNT 3.44 x10e6/uL (3.6-5.1); RED CELL DISTRIBUTION WIDTH 14.6 % (11.7-14.4)
[2017-03-06] MEDS: PANTOPRAZOLE 40 MG 10ML VIAL IV SCH (05:58)
[2017-03-06] MEDS: LEVOTHYROXINE SODIUM 100 MCG TAB PO SCH (05:58)
[2017-03-06 06:02] LABS: ALANINE AMINOTRANSFERASE 243 IU/L (0-55); ALBUMIN 1.4 g/dL (3.5-5.0); ALBUMIN/GLOBULIN RATIO 0.5 (0.8-2.0); ALKALINE PHOSPHATASE 154 IU/L (40-150); ANION GAP 11.3 mmol/L (8-16); BLOOD UREA NITROGEN 9 mg/dL (7-26); BUN/CREATININE RATIO 14 (6-25); CALCIUM 7.4 mg/dL (8.4-10.2); CARBON DIOXIDE 23 mmol/L (22-29); CHLORIDE 117 mmol/L (98-107); CREATININE, SERUM 0.66 mg/dL (0.57-1.11); EST GLOMERULAR FILTRATION RATE > 60 ML/MIN (60-); GLUCOSE 75 mg/dL (74-118); POTASSIUM 3.3 mmol/L (3.5-5.1); SODIUM 148 mmol/L (136-145)
--- NOTE | 2017-03-06 06:51 | Diagnostic Imaging Report ---
EXAMINATION: CHEST SINGLE (PORTABLE) INDICATION: Sepsis COMPARISON: 03/03/2017 FINDINGS: TUBES and LINES: Endotracheal, NG tube and right IJ central line catheters are stable LUNGS: Lungs are not well inflated. Persistent left lower lobe atelectasis. There is perihilar interstitial opacities, consistent with interstitial edema. PLEURA: Minimal bilateral pleural effusion. HEART AND MEDIASTINUM: The cardiomediastinal silhouette is unremarkable. BONES AND SOFT TISSUES: No acute osseous lesion. Soft tissues are unremarkable. UPPER ABDOMEN: No free air under the diaphragm. IMPRESSION: 1. Developing interstitial edema 2. Trace of pleural effusions Signed by: Dr. Erlin Kelly M.D. on 03/06/2017 6:48 AM
[2017-03-06] MEDS: VASOPRESSIN 100 UNIT in DEXTROSE 5% 100ML 100 ML IV SCH (07:29)
[2017-03-06 08:29] LABS: BAND NEUTROPHILS % (MANUAL) 11 %; EOSINOPHILS % (MANUAL) 1 % (0-7); LYMPHOCYTES % (MANUAL) 5 % (19-48); MONOCYTES % (MANUAL) 2 % (3.4-9.0); MYELOCYTES % (MANUAL) 1 % (0-0); NEUTROPHILS % (MANUAL) 80 % (40-74)
[2017-03-06 08:30] LABS: PLATELET ESTIMATE MODERATELY DECREASED; PLATELET MORPHOLOGY COMMENT NORMAL; RBC MORPHOLOGY COMMENT NORMAL; TOXIC GRANULATION SLIGHT
[2017-03-06] MEDS: VENLAFAXINE HCL 75 MG TAB PO SCH (09:00)
[2017-03-06] MEDS: MEROPENEM 1 GM VIAL IV SCH (10:29)
--- NOTE | 2017-03-06 12:44 | Progress Note ---
DATE: March 06, 2017 CARDIOLOGY PROGRESS NOTE SUBJECTIVE: Ms. Damian remains intubated. She is not hypotensive any more. Pressors have been discontinued. OBJECTIVE VITAL SIGNS: Temperature 98.4, heart rate 100, blood pressure 134/74, and O2 sat is 99%. CARDIOVASCULAR: Regular rhythm. No murmurs or gallops. LUNGS: Clear to auscultation bilaterally. ABDOMEN: Distended. DIAGNOSTIC DATA: Telemetry shows sinus tachycardia. LABORATORY DATA: Hemoglobin is 11.2. Creatinine is normal. ASSESSMENT: 1. Septic shock, resolving. 2. Sinus tachycardia secondary to septic shock. RECOMMENDATIONS: Echocardiogram to evaluate for structural heart disease. Continue to monitor. [place] intravenous fluids. Job#: [id number] VAS
[2017-03-06] MEDS: VANCOMYCIN 1GM/NS 250 ML 250 ML IV SCH (16:06)
[2017-03-06] MEDS ORDERED: MEROPENEM 500MG 500 MG in SODIUM CHLORIDE 0.9% 50ML 50 ML IV SCH (18:00)
[2017-03-06] MEDS: MEROPENEM 500 MG VIAL IV SCH (18:55)
[2017-03-06] MEDS: CENTRAL TPN FORMULA 1 BAG IV SCH (20:00)
[2017-03-06] MEDS: THIAMINE HCL INJ 100 MG/ML 2ML VIAL IM SCH (20:19)
[2017-03-07] VITALS (75 sets, daily range): BP systolic 97–180; BP diastolic 37–97
[2017-03-07] MEDS: VANCOMYCIN 1GM/NS 250 ML 250 ML IV SCH ×2 (02:00→15:01)
[2017-03-07] MEDS: SODIUM CHLORIDE 0.9% 250ML IRRIG IR SCH ×7 (03:45→23:15)
[2017-03-07] MEDS: SODIUM CHLORIDE 0.9% IV PRN (04:00)
[2017-03-07] MEDS: METRONIDAZOLE 500MG/NS 100ML 100 ML IV SCH ×3 (04:00→20:22)
[2017-03-07] MEDS: HYDROMORPHONE IV PRN (04:00)
[2017-03-07] MEDS: HYDROMORPHONE 2MG/ML INJ IV PRN (04:00)
[2017-03-07] MEDS: MEROPENEM 500 MG VIAL IV SCH ×4 (06:00→17:35)
[2017-03-07] MEDS: LEVOTHYROXINE SODIUM 100 MCG TAB PO SCH (06:00)
[2017-03-07] MEDS: PANTOPRAZOLE 40 MG 10ML VIAL IV SCH (06:00)
[2017-03-07 07:31] LABS: BASOPHILS # (AUTO) 0.1 (0.0-0.1); BASOPHILS % 0.8 % (0.0-1.0); EOSINOPHILS # (AUTO) 0.1 (0.0-0.4); EOSINOPHILS % 0.5 % (0.0-6.0); HEMATOCRIT 29.7 % (34.2-44.1); HEMOGLOBIN 10.2 g/dL (12.0-16.0); LYMPHOCYTES # (AUTO) 0.8 (1.0-3.2); LYMPHOCYTES % 4.7 % (18.0-39.1); MEAN CORPUSCULAR HGB CONC 34.3 g/dL (31-35); MEAN CORPUSCULAR VOLUME 93.1 fL (81-99); MONOCYTES # (AUTO) 0.8 (0.2-0.8); MONOCYTES % 4.8 % (4.4-11.3); NEUTROPHILS # (AUTO) 14.4 (2.1-6.9); NEUTROPHILS % 86.6 % (38.7-80.0); PLATELET COUNT 131 x10e3/uL (140-360); RED BLOOD COUNT 3.19 x10e6/uL (3.6-5.1); RED CELL DISTRIBUTION WIDTH 15.2 % (11.7-14.4)
--- NOTE | 2017-03-07 07:34 | Diagnostic Imaging Report ---
EXAMINATION: CHEST SINGLE (PORTABLE) INDICATION: \S\SEPSIS \[id number] \S\0600 COMPARISON: 03/06/2017 FINDINGS: AP view TUBES and LINES: Stable endotracheal tube, nasogastric tube, and right internal jugular central line. LUNGS: Limited by low lung volumes and body habitus. Unchanged central peribronchovascular thickening/cuffing and retrocardiac opacification. PLEURA: Small bilateral pleural effusions. HEART AND MEDIASTINUM: The cardiac silhouette is mildly enlarged. BONES AND SOFT TISSUES: No acute osseous lesion. Soft tissues are unremarkable. UPPER ABDOMEN: No free air under the diaphragm. IMPRESSION: Limited as above. Unchanged central peribronchovascular thickening/cuffing and retrocardiac opacification. Underlying infiltrate cannot be excluded. Small right and moderate left pleural effusion. Signed by: Dr. Dwayne Maria MD on 03/07/2017 7:30 AM
[2017-03-07 08:15] LABS: ALANINE AMINOTRANSFERASE 155 IU/L (0-55); ALBUMIN 1.3 g/dL (3.5-5.0); ALBUMIN/GLOBULIN RATIO 0.4 (0.8-2.0); ALKALINE PHOSPHATASE 150 IU/L (40-150); BLOOD UREA NITROGEN 9 mg/dL (7-26); BUN/CREATININE RATIO 15 (6-25); CALCIUM 7.7 mg/dL (8.4-10.2); CARBON DIOXIDE 24 mmol/L (22-29); CHLORIDE 119 mmol/L (98-107); CREATININE, SERUM 0.62 mg/dL (0.57-1.11); EST GLOMERULAR FILTRATION RATE > 60 ML/MIN (60-); GLUCOSE 81 mg/dL (74-118); SODIUM 151 mmol/L (136-145)
[2017-03-07 08:27] LABS: BAND NEUTROPHILS % (MANUAL) 42 %; LYMPHOCYTES % (MANUAL) 8 % (19-48); MONOCYTES % (MANUAL) 3 % (3.4-9.0); NEUTROPHILS % (MANUAL) 47 % (40-74); PLATELET ESTIMATE ADEQUATE; PLATELET MORPHOLOGY COMMENT NORMAL; RBC MORPHOLOGY COMMENT NORMAL
[2017-03-07] MEDS: VENLAFAXINE HCL 75 MG TAB PO SCH (09:00)
[2017-03-07] MEDS ORDERED: DEXTROSE 5% 1,000 ML IV SCH (09:15)
[2017-03-07 09:59] LABS: ABG HCO3 23 mmol/L (23-28); ABG PCO2 41 mmHg (41-51); ABG PH 7.36 (7.31-7.41); ABG PO2 97 mmHg (80-105)
[2017-03-07] MEDS ORDERED: POTASSIUM CHLORIDE 20MEQ/100ML 200 ML IV ONE (10:00)
[2017-03-07] MEDS ORDERED: METOPROLOL TARTRATE INJ 1 MG/ML VIAL IV ONE (12:30)
[2017-03-07] MEDS ORDERED: FUROSEMIDE INJ 10 MG/ML 4 ML VIAL IV ONE (12:30)
--- NOTE | 2017-03-07 13:31 | Progress Note ---
DATE: March 07, 2017 CARDIOLOGY PROGRESS NOTE: SUBJECTIVE: This patient remains intubated. Afebrile. OBJECTIVE VITAL SIGNS: Heart rate 90. Blood pressure 158/87. CARDIOVASCULAR: Regular rhythm. No murmurs or gallops. LUNGS: Occasional crackles. ABDOMEN: Is distended. WBC count 16,600. Sodium is 151. ASSESSMENT: Sepsis with septic shock, resolved. PLAN: Addition of metoprolol for blood pressure control. Hypernatremia treatment per critical care physicians. Job#: [id number] EV
[2017-03-07] MEDS: METOPROLOL TARTRATE INJ 1 MG/ML VIAL IV SCH ×2 (14:16→22:00)
[2017-03-07] MEDS: THIAMINE HCL INJ 100 MG/ML 2ML VIAL IM SCH (20:22)
[2017-03-07] MEDS: CENTRAL TPN FORMULA 1 BAG IV SCH (20:23)
[2017-03-08] VITALS (90 sets, daily range): BP systolic 84–161; BP diastolic 51–103
[2017-03-08] MEDS: MEROPENEM 500 MG VIAL IV SCH ×5 (00:58→22:59)
[2017-03-08] MEDS: VANCOMYCIN 1GM/NS 250 ML 250 ML IV SCH ×2 (02:00→14:52)
[2017-03-08] MEDS: SODIUM CHLORIDE 0.9% 250ML IRRIG IR SCH ×6 (03:59→22:56)
[2017-03-08] MEDS: METRONIDAZOLE 500MG/NS 100ML 100 ML IV SCH ×3 (04:24→19:50)
[2017-03-08] MEDS: HYDROMORPHONE IV PRN (04:30)
[2017-03-08] MEDS: SODIUM CHLORIDE 0.9% IV PRN (04:30)
[2017-03-08] MEDS: PANTOPRAZOLE 40 MG 10ML VIAL IV SCH (05:43)
[2017-03-08] MEDS: METOPROLOL TARTRATE INJ 1 MG/ML VIAL IV SCH ×3 (05:44→22:06)
[2017-03-08] MEDS ORDERED: LEVOTHYROXINE SODIUM 100 MCG/VIAL IV SCH (06:00)
[2017-03-08] MEDS ORDERED: ACETAMINOPHEN 325 MG TAB NG PRN (06:15)
[2017-03-08 06:22] LABS: BASOPHILS # (AUTO) 0.1 (0.0-0.1); BASOPHILS % 0.4 % (0.0-1.0); EOSINOPHILS # (AUTO) 0.1 (0.0-0.4); EOSINOPHILS % 0.3 % (0.0-6.0); HEMATOCRIT 29.3 % (34.2-44.1); HEMOGLOBIN 10.1 g/dL (12.0-16.0); LYMPHOCYTES # (AUTO) 1.7 (1.0-3.2); LYMPHOCYTES % 9.4 % (18.0-39.1); MEAN CORPUSCULAR HEMOGLOBIN 31.6 pg (28-32); MEAN CORPUSCULAR HGB CONC 34.5 g/dL (31-35); MEAN CORPUSCULAR VOLUME 91.6 fL (81-99); MONOCYTES # (AUTO) 0.9 (0.2-0.8); MONOCYTES % 5.2 % (4.4-11.3); NEUTROPHILS # (AUTO) 14.3 (2.1-6.9); NEUTROPHILS % 80.8 % (38.7-80.0); PLATELET COUNT 184 x10e3/uL (140-360); RED CELL DISTRIBUTION WIDTH 15.4 % (11.7-14.4)
[2017-03-08 06:40] LABS: ALANINE AMINOTRANSFERASE 101 IU/L (0-55); ALBUMIN 1.3 g/dL (3.5-5.0); ALBUMIN/GLOBULIN RATIO 0.4 (0.8-2.0); ALKALINE PHOSPHATASE 145 IU/L (40-150); ANION GAP 10.6 mmol/L (8-16); BLOOD UREA NITROGEN 10 mg/dL (7-26); BUN/CREATININE RATIO 17 (6-25); CALCIUM 7.9 mg/dL (8.4-10.2); CARBON DIOXIDE 30 mmol/L (22-29); CHLORIDE 117 mmol/L (98-107); EST GLOMERULAR FILTRATION RATE > 60 ML/MIN (60-); GLUCOSE 142 mg/dL (74-118); SODIUM 155 mmol/L (136-145)
[2017-03-08 06:45] LABS: POTASSIUM 2.6 mmol/L (3.5-5.1)
[2017-03-08] MEDS ORDERED: POTASSIUM CHLORIDE 20MEQ/100ML 300 ML IV ONE (07:00)
--- NOTE | 2017-03-08 07:11 | Diagnostic Imaging Report ---
Examination: Single AP view of the chest. COMPARISON: 03/07/2017 INDICATION: Intubated DISCUSSION: See impression IMPRESSION: 1. When accounting for differences in projection, no appreciable interval change in position of endotracheal tube, enteric tube, and right internal jugular central venous catheter. 2. Persistent low lung volumes with central pulmonary venous congestion and trace bilateral pleural effusions. 3. No new consolidations.. Signed by: Dr. Luis Manuel Goncalves M.D. on 03/08/2017 7:08 AM
[2017-03-08 07:41] LABS: BAND NEUTROPHILS % (MANUAL) 1 %; LYMPHOCYTES % (MANUAL) 8 % (19-48); MONOCYTES % (MANUAL) 5 % (3.4-9.0); MYELOCYTES % (MANUAL) 2 % (0-0); NEUTROPHILS % (MANUAL) 80 % (40-74)
[2017-03-08 07:42] LABS: ANISOCYTOSIS SLIGHT; HYPOCHROMASIA SLIGHT; POIKILOCYTOSIS SLIGHT; RBC MORPHOLOGY COMMENT NORMAL
[2017-03-08 07:43] LABS: PLATELET ESTIMATE ADEQUATE; PLATELET MORPHOLOGY COMMENT NORMAL
--- NOTE | 2017-03-08 09:31 | Progress Note ---
DATE: March 08, 2017 CARDIOLOGY PROGRESS NOTE SUBJECTIVE: Ms. Damian has a temperature of 101 degrees. OBJECTIVE VITALS: Heart rate 91, blood pressure 115/73, O2 sat is 95%. CARDIOVASCULAR: Regular rhythm. No murmurs. LUNGS: Occasional rhonchi. ABDOMEN: Distended. Telemetry shows sinus rhythm. ASSESSMENT: Sepsis with septic shock. RECOMMENDATIONS: Patient is tolerating beta hammad well. Echocardiogram revealed no structural heart disease. Normal LV ejection fraction. [place] intravenous fluids. We will continue to follow. I thank Dr. Florez for this consultation. Job#: [id number] MN
[2017-03-08] MEDS ORDERED: FUROSEMIDE INJ 10 MG/ML 4 ML VIAL IV ONE (10:45)
[2017-03-08] MEDS: DEXTROSE 5% 1,000 ML IV SCH ×2 (11:00→22:59)
[2017-03-08] MEDS: ACETAMINOPHEN 1000 MG/100 ML IV PRN ×2 (11:56→18:29)
[2017-03-08] MEDS ORDERED: SODIUM CHLORIDE 0.9% 250ML 250 ML ONE (19:36)
[2017-03-08] MEDS: CENTRAL TPN FORMULA 1 BAG IV SCH (19:52)
[2017-03-08] MEDS: THIAMINE HCL INJ 100 MG/ML 2ML VIAL IM SCH (20:00)
[2017-03-09] VITALS (88 sets, daily range): BP systolic 90–201; BP diastolic 52–200
[2017-03-09] MEDS: ACETAMINOPHEN 1000 MG/100 ML IV PRN (01:09)
[2017-03-09] MEDS: VANCOMYCIN 1GM/NS 250 ML 250 ML IV SCH (01:37)
[2017-03-09] MEDS ORDERED: MIDAZOLAM HCL 2 MG/2 ML VIAL IV STA (02:44)
[2017-03-09] MEDS ORDERED: MORPHINE SULFATE 4 MG/ML SYR IV PRN (02:45)
[2017-03-09] MEDS: SODIUM CHLORIDE 0.9% 250ML IRRIG IR SCH ×6 (03:10→23:16)
[2017-03-09] MEDS: METRONIDAZOLE 500MG/NS 100ML 100 ML IV SCH ×2 (03:10→12:51)
[2017-03-09] MEDS: PANTOPRAZOLE 40 MG 10ML VIAL IV SCH (06:09)
[2017-03-09] MEDS: METOPROLOL TARTRATE INJ 1 MG/ML VIAL IV SCH ×3 (06:09→21:22)
[2017-03-09] MEDS: LEVOTHYROXINE SODIUM 100 MCG/VIAL IV SCH (06:09)
[2017-03-09] MEDS: MEROPENEM 500 MG VIAL IV SCH ×4 (06:09→23:16)
[2017-03-09 06:10] LABS: BASOPHILS # (AUTO) 0.1 (0.0-0.1); BASOPHILS % 0.4 % (0.0-1.0); HEMATOCRIT 30.3 % (34.2-44.1); HEMOGLOBIN 10.7 g/dL (12.0-16.0); LYMPHOCYTES # (AUTO) 2.8 (1.0-3.2); LYMPHOCYTES % 12.1 % (18.0-39.1); MEAN CORPUSCULAR HEMOGLOBIN 32.1 pg (28-32); MEAN CORPUSCULAR HGB CONC 35.3 g/dL (31-35); MONOCYTES % 4.5 % (4.4-11.3); NEUTROPHILS # (AUTO) 17.6 (2.1-6.9); NEUTROPHILS % 77.7 % (38.7-80.0); PLATELET COUNT 257 x10e3/uL (140-360); RED BLOOD COUNT 3.33 x10e6/uL (3.6-5.1); RED CELL DISTRIBUTION WIDTH 15.1 % (11.7-14.4)
[2017-03-09 06:44] LABS: ANION GAP 9.6 mmol/L (8-16); BLOOD UREA NITROGEN 13 mg/dL (7-26); BUN/CREATININE RATIO 22 (6-25); CARBON DIOXIDE 30 mmol/L (22-29); CHLORIDE 115 mmol/L (98-107); EST GLOMERULAR FILTRATION RATE > 60 ML/MIN (60-); GLUCOSE 150 mg/dL (74-118); SODIUM 152 mmol/L (136-145)
[2017-03-09 06:59] LABS: POTASSIUM 2.6 mmol/L (3.5-5.1)
[2017-03-09] MEDS ORDERED: POTASSIUM CHLORIDE 20MEQ/100ML 300 ML IV ONE (07:00)
[2017-03-09 07:23] LABS: BAND NEUTROPHILS % (MANUAL) 3 %; LYMPHOCYTES % (MANUAL) 10 % (19-48); METAMYELOCYTES % (MANUAL) 2 % (0-0); MONOCYTES % (MANUAL) 3 % (3.4-9.0); MYELOCYTES % (MANUAL) 1 % (0-0); NEUTROPHILS % (MANUAL) 80 % (40-74)
[2017-03-09 07:24] LABS: ANISOCYTOSIS SLIGHT; HYPOCHROMASIA SLIGHT; PLATELET ESTIMATE ADEQUATE; PLATELET MORPHOLOGY COMMENT NORMAL; RBC MORPHOLOGY COMMENT NORMAL
[2017-03-09] MEDS: POTASSIUM CHLORIDE 20MEQ/100ML 100 ML IV SCH ×3 (07:37→12:51)
[2017-03-09] MEDS ORDERED: VANCOMYCIN HCL 1.25 GM in SODIUM CHLORIDE 0.9% 250ML 300 ML IV SCH ×2 (09:00→13:00)
[2017-03-09] MEDS ORDERED: MICAFUNGIN SODIUM 50 MG/50 ML BAG IV SCH (09:00)
[2017-03-09] MEDS ORDERED: ACETAMINOPHEN 1000 MG/100 ML IV PRN (09:30)
[2017-03-09] MEDS ORDERED: HYDROMORPHONE 2MG/ML INJ IV ONE (09:50)
[2017-03-09] MEDS: MICAFUNGIN SODIUM 100 ML IV SCH (10:01)
[2017-03-09] MEDS ORDERED: DIATRIZOATE MEGL/DIATRIZOA SOD 30 ML BTL PO ONE (10:30)
[2017-03-09] MEDS: SODIUM CHLORIDE 0.9% IV PRN ×2 (10:56→18:28)
[2017-03-09] MEDS: HYDROMORPHONE IV PRN ×2 (10:56→18:28)
[2017-03-09] MEDS: ONDANSETRON HCL INJ 2 MG/ML VIAL IV PRN (11:06)
[2017-03-09] MEDS ORDERED: IOPAMIDOL 370 MG/ML 200 ML INFUS..BTL INJ ONE (11:06)
[2017-03-09] MEDS ORDERED: SODIUM CHLORIDE 0.9% 50ML 50 ML ONE (11:06)
[2017-03-09] MEDS: DEXTROSE 5% 1,000 ML IV SCH (12:51)
--- NOTE | 2017-03-09 12:51 | Diagnostic Imaging Report ---
PROCEDURE: CT CHEST, ABDOMEN AND PELVIS WITH CONTRAST TECHNIQUE: The chest, abdomen and pelvis were scanned utilizing a multidetector helical scanner from the lung apex to the lesser trochanter after the IV administration of 100 cc of Isovue 370 and the oral administration of Gastrografin. Coronal and sagittal multiplanar reformations were obtained. COMPARISON: CT abdomen and pelvis 03/02/2017. 03/25/16. INDICATIONS: ABD PAIN FINDINGS: LINES and TUBES: New endotracheal tube with tip in the appropriate position. A right IJ central line with tip at mid SVC. NG tube in the stomach. Right lower quadrant surgical drain. Tejeda catheter in place. LUNGS and AIRWAY: Bilateral lower lobe compressive atelectasis. PLEURA: Small bilateral pleural effusions. MEDIASTINUM: Cardiac mediastinal silhouette is within normal limits. No axillary, hilar, or mediastinal adenopathy by size criteria. Thyroid is unremarkable. Mild atherosclerotic calcifications in the coronary arteries. HEPATOBILIARY: Stable benign-appearing 0.4 cm too small to characterize hypodensity in segment 4A (series 2 image 43). No biliary ductal dilatation. Gallbladder: Gallbladder has decompressed compared to prior examination. SPLEEN: No splenomegaly. PANCREAS: No focal masses or ductal dilatation. ADRENALS: No adrenal nodules. KIDNEYS/URETERS: No hydronephrosis, stones, or solid mass lesions. PELVIC ORGANS/BLADDER: Unremarkable. PERITONEUM / RETROPERITONEUM: Resolved free air. Residual trace free fluid in the left abdomen and adjacent to the gallbladder. LYMPH NODES: No lymphadenopathy. VESSELS: Unremarkable. GI TRACT: Postoperative changes of sigmoid resection with a left lower quadrant end colostomy. Wall thickening of the descending and transverse colon. Very mild wall thickening of the small bowel, likely reactive. Visualized appendix is normal. BONES AND SOFT TISSUES: New midline laparotomy scar with skin scott. Posterior fusion with transpedicular screws and interconnecting rods at L3 and L4 vertebral bodies. Previous fusion rods and screws extending through L5 vertebral body has been removed. Good osseous fusion at L4-L5 with a bone graft. Severe degenerative changes at L2-L3 with severe disc space narrowing and erosive changes. L3 and L4 hemilaminectomy changes. Bony defects in the left iliac crest, likely from bone graft harvesting. Pelvic floor prolapse is unchanged. IMPRESSION: 1. Small bilateral pleural effusions with associated lower lobe atelectasis. 2. New postoperative changes of sigmoid resection and a left lower quadrant end colostomy. 3. Persistent wall thickening of the descending and transverse colon. Correlate for colitis. 4. Mild wall thickening of the small bowel loops, likely from recent infection and surgery. Dictated by: Bhargav Oliveira M.D. on 03/09/2017 at 12:59 Electronically approved by: Bhargav Oliveira M.D. on 03/09/2017 at 12:59
--- NOTE | 2017-03-09 12:53 | Diagnostic Imaging Report ---
PROCEDURE: CT scan of the chest WITH intravenous contrast, using standard protocol. TECHNIQUE: The chest was scanned utilizing a multidetector helical scanner from the lung apex through the level of the adrenal glands after the IV administration of 100 cc of Isovue 370. Coronal and sagittal multiplanar reformations were obtained. COMPARISON: None. INDICATIONS: PAIN FINDINGS: Please see CT abdomen and pelvis from same date for combined dictation of Chest, Abdomen, and Pelvis. IMPRESSION: Small bilateral pleural effusions and associated compressive atelectasis of both lower lobes.. Dictated by: Bhargav Oliveira M.D. on 03/09/2017 at 13:01 Electronically approved by: Bhargav Oliveira M.D. on 03/09/2017 at 13:01
--- NOTE | 2017-03-09 15:41 | Progress Note ---
DATE: March 09, 2017 CARDIOLOGY PROGRESS NOTE SUBJECTIVE: Patient remains intubated and sedated. OBJECTIVE VITAL SIGNS: Temperature 102.4 degrees, pulse 89, respiratory rate 20, blood pressure 142/88, oxygen saturation 97% on mechanical ventilation. GENERAL: Obese woman, intubated, sedated, in no acute distress. LUNGS: Clear to auscultation bilaterally. No wheezes or crackles. CARDIOVASCULAR: Normal rate, regular rhythm. No murmur. Normal S1 and S2. ABDOMEN: Soft. A surgical dressing and colostomy are present. EXTREMITIES: Trace edema. CARDIAC MEDICATIONS 1. Metoprolol tartrate 5 mg IV q.8 h. 2. Levothyroxine 100 mcg p.o. daily. LABS: WBC 22.6, hemoglobin 10.7, hematocrit 30.3, platelets 257. Sodium 152, potassium 2.6, chloride 115, CO2 30, BUN 13, creatinine 0.6. IMPRESSION 1. Septic shock secondary to fecal peritonitis. 2. Systemic inflammatory response syndrome criteria with recurrent fever and worsening leukocytosis. 3. Fecal peritonitis. 4. Perforated sigmoid colon status post exploratory laparotomy, sigmoid colectomy, colostomy and Elsy pouch. 5. Sinus tachycardia, resolved. 6. Acute kidney injury, resolved. 7. Liver function tests, suspected shock liver, improving. RECOMMENDATIONS: Antibiotics per Infectious Disease. Patient's hemodynamics have improved. She is now off pressor support. Continue to monitor closely. Tachycardia has resolved, likely was a physiologic response to patient's illness. Thank you for this consult. We will continue to follow. Job#: [id number] EDER
[2017-03-09] MEDS ORDERED: MIDAZOLAM HCL 2 MG/2 ML VIAL IV PRN (15:45)
[2017-03-09] MEDS: MIDAZOLAM HCL 2 MG/2 ML VIAL IV PRN ×3 (15:55→19:43)
[2017-03-09] MEDS ORDERED: LIDOCAINE 5% PATCH TP PRN (19:45)
[2017-03-09] MEDS: CENTRAL TPN FORMULA 1 BAG IV SCH (20:29)
[2017-03-09] MEDS: MIDAZOLAM HCL 25 MG in SODIUM CHLORIDE 0.9% 50ML 45 ML IV PRN (20:44)
[2017-03-09] MEDS: THIAMINE HCL INJ 100 MG/ML 2ML VIAL IM SCH (21:22)
[2017-03-10] VITALS (76 sets, daily range): BP systolic 72–159; BP diastolic 41–117
[2017-03-10] MEDS: MIDAZOLAM HCL 25 MG in SODIUM CHLORIDE 0.9% 50ML 45 ML IV PRN ×3 (00:26→17:56)
[2017-03-10] MEDS: HYDROMORPHONE IV PRN ×3 (00:27→20:59)
[2017-03-10] MEDS: SODIUM CHLORIDE 0.9% IV PRN ×3 (00:27→20:59)
[2017-03-10] MEDS: DEXTROSE 5% 1,000 ML IV SCH ×3 (01:17→16:20)
[2017-03-10] MEDS: SODIUM CHLORIDE 0.9% 250ML IRRIG IR SCH ×6 (03:12→23:28)
[2017-03-10] MEDS: MEROPENEM 500 MG VIAL IV SCH ×4 (05:24→23:30)
[2017-03-10] MEDS: METOPROLOL TARTRATE INJ 1 MG/ML VIAL IV SCH ×3 (05:24→21:41)
[2017-03-10] MEDS: PANTOPRAZOLE 40 MG 10ML VIAL IV SCH (05:24)
[2017-03-10] MEDS: LEVOTHYROXINE SODIUM 100 MCG/VIAL IV SCH (05:24)
[2017-03-10 06:34] LABS: BASOPHILS # (AUTO) 0.1 (0.0-0.1); BASOPHILS % 0.4 % (0.0-1.0); EOSINOPHILS # (AUTO) 0.2 (0.0-0.4); EOSINOPHILS % 1.5 % (0.0-6.0); HEMATOCRIT 30.4 % (34.2-44.1); HEMOGLOBIN 10.1 g/dL (12.0-16.0); LYMPHOCYTES # (AUTO) 1.6 (1.0-3.2); LYMPHOCYTES % 10.4 % (18.0-39.1); MEAN CORPUSCULAR HEMOGLOBIN 31.6 pg (28-32); MEAN CORPUSCULAR HGB CONC 33.2 g/dL (31-35); MONOCYTES # (AUTO) 0.7 (0.2-0.8); MONOCYTES % 4.3 % (4.4-11.3); NEUTROPHILS # (AUTO) 12.1 (2.1-6.9); NEUTROPHILS % 79.8 % (38.7-80.0); PLATELET COUNT 275 x10e3/uL (140-360); RED CELL DISTRIBUTION WIDTH 16.2 % (11.7-14.4)
[2017-03-10 07:07] LABS: ALANINE AMINOTRANSFERASE 46 IU/L (0-55); ALBUMIN 1.3 g/dL (3.5-5.0); ALBUMIN/GLOBULIN RATIO 0.4 (0.8-2.0); ALKALINE PHOSPHATASE 111 IU/L (40-150); ANION GAP 9.1 mmol/L (8-16); BLOOD UREA NITROGEN 14 mg/dL (7-26); BUN/CREATININE RATIO 29 (6-25); CALCIUM 7.6 mg/dL (8.4-10.2); CARBON DIOXIDE 30 mmol/L (22-29); CHLORIDE 115 mmol/L (98-107); CREATININE, SERUM 0.49 mg/dL (0.57-1.11); EST GLOMERULAR FILTRATION RATE > 60 ML/MIN (60-); GLUCOSE 118 mg/dL (74-118); MAGNESIUM 2.1 MG/DL (1.3-2.1); POTASSIUM 3.1 mmol/L (3.5-5.1); SODIUM 151 mmol/L (136-145)
[2017-03-10 09:18] LABS: BAND NEUTROPHILS % (MANUAL) 2 %; EOSINOPHILS % (MANUAL) 1 % (0-7); LYMPHOCYTES % (MANUAL) 9 % (19-48); METAMYELOCYTES % (MANUAL) 2 % (0-0); MONOCYTES % (MANUAL) 4 % (3.4-9.0); MYELOCYTES % (MANUAL) 1 % (0-0); NEUTROPHILS % (MANUAL) 81 % (40-74)
[2017-03-10] MEDS: MICAFUNGIN SODIUM 100 ML IV SCH (09:18)
[2017-03-10 09:19] LABS: ANISOCYTOSIS SLIGHT; HOWELL-JOLLY BODIES FEW; HYPOCHROMASIA SLIGHT; PLATELET ESTIMATE ADEQUATE; PLATELET MORPHOLOGY COMMENT NORMAL; RBC MORPHOLOGY COMMENT NORMAL
[2017-03-10] MEDS ORDERED: DEXMEDETOMIDINE HCL 200 MCG in SODIUM CHLORIDE 0.9% 50ML 48 ML IV PRN (09:45)
[2017-03-10] MEDS ORDERED: FUROSEMIDE INJ 10 MG/ML 4 ML VIAL IV ONE (09:45)
[2017-03-10] MEDS ORDERED: MORPHINE SULFATE 5 MG/ML VIAL IV PRN (10:00)
[2017-03-10] MEDS ORDERED: DEXMEDETOMIDINE HCL 1,000 MCG in SODIUM CHLORIDE 0.9% 250ML 240 ML IV PRN (10:15)
[2017-03-10] MEDS ORDERED: DEXMEDETOMIDINE HCL 1,000 MCG in SODIUM CHLORIDE 0.9% 250ML 250 ML IV PRN (10:15)
[2017-03-10] MEDS: FENTANYL 50 MCG/HR PATCH TOP SCH ×2 (10:26→11:46)
--- NOTE | 2017-03-10 13:25 | Diagnostic Imaging Report ---
PROCEDURE:NON-TUNNELLED CVC CATH PLACMNT COMPARISON:Chest radiograph 03/10/2017. INDICATIONS: Fever, suspected infection of right internal jugular central venous catheter COMPLICATIONS: No immediate Estimated blood loss: Minimal Blood products administered: None Specimens: None Implants/grafts: 7 Croatian 20 cm triple-lumen central venous catheter Sedation: None MEDICATIONS: Lidocaine 1% for local anesthesia Condition at completion of procedure: Guarded Disposition: ICU Fluoroscopy time: 0.4 minutes Air Kerma: 4.74 mGy Contrast: None PROCEDURE: Informed consent was obtained from the next of kin and documented in the medical record. The patient was placed in the supine position on the fluoroscopic table. Preliminary sonographic evaluation of the left cervical region confirmed patency of the internal jugular vein, evidenced by compressibility. The left cervical region was then prepped and draped in the standard sterile fashion. 1% lidocaine was infiltrated into the skin and subcutaneous tissues for local anesthesia. Then under continuous sonographic guidance, an 18 gauge single wall needle was used to access the left internal jugular vein. A permanent sonographic image was stored in the medical record. A 0.035 inch wire was then advanced through the needle and into the inferior vena cava under fluoroscopic guidance. The needle was removed over the wire and the tract was dilated. Then, a 7 Croatian, 20 cm triple lumen central venous catheter was advanced over the wire to full depth. The wire was removed and the catheter tip was positioned at the superior cavoatrial junction. Each lumen was tested and showed adequate bidirectional flow. The catheter was then flushed with sterile saline and secured to the skin with monofilament nylon suture. A sterile dressing was applied. The patient tolerated the procedure well without immediate complication. Findings: Patent left internal jugular vein. CONCLUSION: Successful placement of a 7 Croatian, 20 cm triple-lumen central venous catheter via a left internal jugular approach under sonographic and fluoroscopic guidance. Dictated by: Luis Manuel Goncalves M.D. on 03/10/2017 at 13:34 Electronically approved by: Luis Manuel Goncalves M.D. on 03/10/2017 at 13:34
--- NOTE | 2017-03-10 13:26 | Diagnostic Imaging Report ---
PROCEDURE:ULTRASOUND GUIDANCE FOR VASCULAR ACCESS COMPARISON:None. INDICATIONS:Central Line Placement FINDINGS:Left internal jugular vein is noted to be patent. Ultrasound guidance was utilized for access for central line placement. CONCLUSION:Patent left internal jugular vein. Successful ultrasound guidance for central line placement. Dictated by: Luis Manuel Goncalves M.D. on 03/10/2017 at 13:35 Electronically approved by: Luis Manuel Goncalves M.D. on 03/10/2017 at 13:35
[2017-03-10] MEDS: PROMETHAZINE 12.5MG/ NACL 0.9% 12.5 MG/50 ML BAG IV PRN (18:06)
[2017-03-10] MEDS ORDERED: POTASSIUM CHLORIDE 20MEQ/100ML 200 ML IV ONE (19:00)
[2017-03-10] MEDS ORDERED: FUROSEMIDE INJ 10 MG/ML 2 ML VIAL IV ONE (20:00)
[2017-03-10] MEDS: THIAMINE HCL INJ 100 MG/ML 2ML VIAL IM SCH (20:05)
--- NOTE | 2017-03-10 20:08 | Progress Note ---
DATE: March 10, 2017 CARDIOLOGY PROGRESS NOTE SUBJECTIVE: The patient remains intubated and sedated. She just returned from line exchange. OBJECTIVE VITAL SIGNS: Temperature 99.2 degrees, pulse 90, respiratory rate 20, blood pressure 131/85, oxygen saturation 98% on mechanical ventilation. GENERAL: Obese woman, intubated, sedated, in no acute distress. LUNGS: Clear to auscultation bilaterally. No wheezes or crackles. CARDIOVASCULAR: Normal rate, regular rhythm. No murmur. Normal S1 and S2. ABDOMEN: Soft. A surgical dressing and colostomy are present. EXTREMITIES: Trace edema. CARDIAC MEDICATIONS: Levothyroxine 100 mcg p.o. daily. LABS: WBC 15.12, hemoglobin 10.1, hematocrit 30.4, platelets 275,000, sodium 151, potassium 3.1, chloride 115, CO2 of 30, BUN 14, creatinine 0.49. Influenza negative. TELEMETRY: Normal sinus rhythm. IMPRESSION 1. Septic shock secondary to fecal peritonitis. 2. Systemic inflammatory response syndrome criteria with recurrent fever and leukocytosis. 3. Fecal peritonitis. 4. Perforated sigmoid colon status post laparotomy, sigmoid colectomy, colostomy and Elsy pouch. 5. Sinus tachycardia, resolved. 6. Acute kidney injury, resolved. 7. Elevated liver function test, suspect shock liver, improving. RECOMMENDATIONS: Antibiotics per infectious disease. The patient's hemodynamics have improved. Continue to monitor closely. The sinus tachycardia has resolved as it was likely a physiologic response to the patient's illness. Thank you for this consult. We will continue to follow. Job#: [id number]
[2017-03-10] MEDS: CENTRAL TPN FORMULA 1 BAG IV SCH (21:12)
[2017-03-10] MEDS: ACETAMINOPHEN 1000 MG/100 ML IV PRN (21:41)
[2017-03-11] VITALS (59 sets, daily range): BP systolic 80–146; BP diastolic 44–95
[2017-03-11] MEDS: SODIUM CHLORIDE 0.9% 250ML IRRIG IR SCH ×4 (03:07→16:13)
[2017-03-11] MEDS: SODIUM CHLORIDE 0.9% IV PRN (04:01)
[2017-03-11] MEDS: MIDAZOLAM HCL 25 MG in SODIUM CHLORIDE 0.9% 50ML 45 ML IV PRN (04:01)
[2017-03-11] MEDS: HYDROMORPHONE IV PRN (04:01)
[2017-03-11] MEDS: METOPROLOL TARTRATE INJ 1 MG/ML VIAL IV SCH ×3 (05:53→22:03)
[2017-03-11] MEDS: PANTOPRAZOLE 40 MG 10ML VIAL IV SCH (05:53)
[2017-03-11] MEDS: MEROPENEM 500 MG VIAL IV SCH ×4 (05:53→23:58)
[2017-03-11] MEDS: LEVOTHYROXINE SODIUM 100 MCG/VIAL IV SCH (05:53)
[2017-03-11] MEDS ORDERED: LORAZEPAM INJ 2 MG/ML VIAL IV PRN (06:00)
[2017-03-11 06:01] LABS: BASOPHILS % 0.2 % (0.0-1.0); EOSINOPHILS # (AUTO) 0.1 (0.0-0.4); EOSINOPHILS % 1.3 % (0.0-6.0); HEMATOCRIT 27.4 % (34.2-44.1); HEMOGLOBIN 9.1 g/dL (12.0-16.0); LYMPHOCYTES # (AUTO) 1.4 (1.0-3.2); LYMPHOCYTES % 12.9 % (18.0-39.1); MEAN CORPUSCULAR HEMOGLOBIN 31.8 pg (28-32); MEAN CORPUSCULAR HGB CONC 33.2 g/dL (31-35); MEAN CORPUSCULAR VOLUME 95.8 fL (81-99); MONOCYTES # (AUTO) 0.4 (0.2-0.8); MONOCYTES % 3.7 % (4.4-11.3); NEUTROPHILS # (AUTO) 8.4 (2.1-6.9); NEUTROPHILS % 79.4 % (38.7-80.0); PLATELET COUNT 282 x10e3/uL (140-360); RED BLOOD COUNT 2.86 x10e6/uL (3.6-5.1)
[2017-03-11 06:31] LABS: ALANINE AMINOTRANSFERASE 30 IU/L (0-55); ALBUMIN 1.3 g/dL (3.5-5.0); ALBUMIN/GLOBULIN RATIO 0.4 (0.8-2.0); ALKALINE PHOSPHATASE 75 IU/L (40-150); ANION GAP 10.4 mmol/L (8-16); BLOOD UREA NITROGEN 16 mg/dL (7-26); BUN/CREATININE RATIO 30 (6-25); CALCIUM 7.4 mg/dL (8.4-10.2); CARBON DIOXIDE 31 mmol/L (22-29); CHLORIDE 112 mmol/L (98-107); CREATININE, SERUM 0.54 mg/dL (0.57-1.11); EST GLOMERULAR FILTRATION RATE > 60 ML/MIN (60-); GLUCOSE 114 mg/dL (74-118); MAGNESIUM 1.8 MG/DL (1.3-2.1); POTASSIUM 3.4 mmol/L (3.5-5.1); SODIUM 150 mmol/L (136-145)
[2017-03-11 08:13] LABS: BAND NEUTROPHILS % (MANUAL) 1 %; EOSINOPHILS % (MANUAL) 2 % (0-7); LYMPHOCYTES % (MANUAL) 15 % (19-48); MONOCYTES % (MANUAL) 2 % (3.4-9.0); NEUTROPHILS % (MANUAL) 79 % (40-74)
[2017-03-11 08:15] LABS: ANISOCYTOSIS SLIGHT; HYPOCHROMASIA SLIGHT; PLATELET ESTIMATE ADEQUATE; PLATELET MORPHOLOGY COMMENT FEW LARGE; POIKILOCYTOSIS SLIGHT; RBC MORPHOLOGY COMMENT NORMAL
[2017-03-11] MEDS: MICAFUNGIN SODIUM 100 ML IV SCH (09:40)
[2017-03-11] MEDS ORDERED: FUROSEMIDE INJ 10 MG/ML 4 ML VIAL IV ONE (10:15)
[2017-03-11] MEDS ORDERED: ACETYLCYSTEINE 20% INHAL SOLN 30 ML VIAL INH ONE (10:45)
[2017-03-11 12:25] LABS: ABG PCO2 40 mmHg (41-51); ABG PH 7.48 (7.31-7.41); ABG PO2 75 mmHg (80-105)
[2017-03-11 12:26] LABS: ABG HCO3 30 mmol/L (23-28)
[2017-03-11] MEDS ORDERED: HYDROMORPHONE 1MG/1ML INJ IV PRN (12:30)
[2017-03-11] MEDS: LEVALBUTEROL HCL SOLN NEBU 0.63 MG/3 ML NEB INH SCH ×2 (13:00→20:10)
[2017-03-11] MEDS: ACETAMINOPHEN 1000 MG/100 ML IV PRN (13:56)
[2017-03-11] MEDS: HYDROMORPHONE 2MG/ML INJ IV PRN ×2 (13:57→18:53)
[2017-03-11] MEDS: LORAZEPAM INJ 2 MG/ML VIAL IV PRN ×2 (13:57→22:27)
[2017-03-11] MEDS ORDERED: MORPHINE SULFATE 5 MG/ML VIAL IV PRN (14:00)
[2017-03-11] MEDS: ONDANSETRON HCL INJ 2 MG/ML VIAL IV PRN (14:10)
[2017-03-11] MEDS ORDERED: POTASSIUM CHLORIDE 20MEQ/100ML 200 ML IV ONE (14:30)
--- NOTE | 2017-03-11 14:30 | Progress Note ---
DATE: March 11, 2017 CARDIOLOGY PROGRESS NOTE SUBJECTIVE: The patient was extubated today. She complains of whole body pain and shortness of breath. OBJECTIVE VITAL SIGNS: Temperature 98.9 degrees, pulse 101, respiratory rate 25, blood pressure 106/66, oxygen saturation 89% on 5 liters nasal cannula. GENERAL: Obese woman in no acute distress. LUNGS: Clear to auscultation bilaterally. No wheezes or crackles. CARDIOVASCULAR: Normal rate, regular rhythm. No murmur. Normal S1 and S2. ABDOMEN: Soft. Surgical dressing and colostomy present. EXTREMITIES: Diffuse anasarca. CARDIAC MEDICATIONS 1. Levothyroxine 100 mcg IV daily. 2. Metoprolol tartrate 5 mg IV q.8 h. LABS: WBC 10.58, hemoglobin 9.1, hematocrit 27.4, platelets 282. Sodium 150, potassium 3.4, chloride 112, CO2 31, BUN 16, creatinine 0.54. TELEMETRY: Sinus tachycardia. IMPRESSION 1. Septic shock secondary to fecal peritonitis. 2. Systemic inflammatory response syndrome criteria with recurrent fever and leukocytosis. 3. Perforated sigmoid colon status post laparotomy, sigmoid colectomy, colostomy and Elsy pouch. 4. Sinus tachycardia. 5. Acute kidney injury, resolved. 6. Elevated liver function tests, suspect shock liver, improving. RECOMMENDATIONS: Antibiotics per Infectious Disease. Continue current cardiac medications. Once patient is able to tolerate p.o., will transition to p.o. medications. Check chest x-ray given hypoxia and shortness of breath. She may need diuresis now that she is recovering from her septic shock. Thank you for this consult. We will continue to follow. Job#: [id number] EV
[2017-03-11] MEDS: CENTRAL TPN FORMULA 1 BAG IV SCH (20:53)
[2017-03-11] MEDS: PROMETHAZINE 12.5MG/ NACL 0.9% 12.5 MG/50 ML BAG IV PRN (20:57)
[2017-03-11] MEDS: THIAMINE HCL INJ 100 MG/ML 2ML VIAL IM SCH (20:57)
[2017-03-12] VITALS (32 sets, daily range): BP systolic 80–141; BP diastolic 48–109
[2017-03-12] MEDS: HYDROMORPHONE 2MG/ML INJ IV PRN ×3 (00:54→13:14)
[2017-03-12] MEDS: LEVALBUTEROL HCL SOLN NEBU 0.63 MG/3 ML NEB INH SCH ×4 (03:20→20:00)
[2017-03-12] MEDS: PROMETHAZINE 12.5MG/ NACL 0.9% 12.5 MG/50 ML BAG IV PRN ×2 (04:55→13:14)
[2017-03-12 05:44] LABS: BASOPHILS % 0.3 % (0.0-1.0); EOSINOPHILS # (AUTO) 0.1 (0.0-0.4); EOSINOPHILS % 0.9 % (0.0-6.0); HEMATOCRIT 27.9 % (34.2-44.1); HEMOGLOBIN 9.1 g/dL (12.0-16.0); LYMPHOCYTES # (AUTO) 1.3 (1.0-3.2); LYMPHOCYTES % 14.1 % (18.0-39.1); MEAN CORPUSCULAR HEMOGLOBIN 31.7 pg (28-32); MEAN CORPUSCULAR HGB CONC 32.6 g/dL (31-35); MEAN CORPUSCULAR VOLUME 97.2 fL (81-99); MONOCYTES # (AUTO) 0.4 (0.2-0.8); MONOCYTES % 4.2 % (4.4-11.3); NEUTROPHILS # (AUTO) 7.3 (2.1-6.9); NEUTROPHILS % 78.9 % (38.7-80.0); PLATELET COUNT 335 x10e3/uL (140-360); RED BLOOD COUNT 2.87 x10e6/uL (3.6-5.1); RED CELL DISTRIBUTION WIDTH 15.6 % (11.7-14.4)
[2017-03-12] MEDS: METOPROLOL TARTRATE INJ 1 MG/ML VIAL IV SCH ×3 (05:53→21:24)
[2017-03-12] MEDS: MEROPENEM 500 MG VIAL IV SCH ×3 (05:54→18:12)
[2017-03-12] MEDS: PANTOPRAZOLE 40 MG 10ML VIAL IV SCH (05:54)
[2017-03-12] MEDS: LEVOTHYROXINE SODIUM 100 MCG/VIAL IV SCH (05:54)
--- NOTE | 2017-03-12 06:06 | Diagnostic Imaging Report ---
CHEST SINGLE (PORTABLE), 03/12/2017 5:00 AM Technique: CHEST SINGLE (PORTABLE) Comparison: 03/08/2017 Clinical history: Abnormal breath sounds Findings: See Impression Impression: 1. Lines/Tubes: Left IJ central venous catheter tip at the cavoatrial junction. Removal of right IJ CVC and NG tube. 2. Bibasilar opacities, favor atelectasis with layering pleural fluid, left greater than right. Signed by: Dr Margaret Mujica MD on 03/12/2017 6:00 AM
[2017-03-12 06:09] LABS: ALANINE AMINOTRANSFERASE 25 IU/L (0-55); ALBUMIN 1.5 g/dL (3.5-5.0); ALBUMIN/GLOBULIN RATIO 0.4 (0.8-2.0); ALKALINE PHOSPHATASE 81 IU/L (40-150); ANION GAP 10.6 mmol/L (8-16); BLOOD UREA NITROGEN 14 mg/dL (7-26); BUN/CREATININE RATIO 25 (6-25); CALCIUM 7.8 mg/dL (8.4-10.2); CARBON DIOXIDE 29 mmol/L (22-29); CHLORIDE 114 mmol/L (98-107); CREATININE, SERUM 0.57 mg/dL (0.57-1.11); EST GLOMERULAR FILTRATION RATE > 60 ML/MIN (60-); GLUCOSE 106 mg/dL (74-118); POTASSIUM 3.6 mmol/L (3.5-5.1); SODIUM 150 mmol/L (136-145)
[2017-03-12] MEDS ORDERED: DIPHENHYDRAMINE HCL INJ 1 ML ONE (07:23)
[2017-03-12] MEDS ORDERED: METHYLPREDNISOLONE SOD SUCC 125 MG/2ML VIAL ONE (07:23)
[2017-03-12] MEDS ORDERED: FAMOTIDINE 20 MG/2 ML VIAL IV ONE (07:24)
[2017-03-12] MEDS: ONDANSETRON HCL INJ 2 MG/ML VIAL IV PRN (08:20)
[2017-03-12] MEDS: MICAFUNGIN SODIUM 100 ML IV SCH (09:10)
[2017-03-12] MEDS ORDERED: FUROSEMIDE INJ 10 MG/ML 4 ML VIAL IV ONE (10:30)
[2017-03-12] MEDS: ACETAMINOPHEN 325 MG TAB PO PRN ×2 (13:45→21:50)
[2017-03-12] MEDS ORDERED: SODIUM CHLORIDE 0.9% IV SCH (14:00)
[2017-03-12] MEDS ORDERED: ACYCLOVIR SODIUM IV SCH (14:00)
[2017-03-12] MEDS: ACYCLOVIR SODIUM INJ 1,000 MG in SODIUM CHLORIDE 0.9% 250ML 250 ML IV SCH ×2 (14:43→21:59)
--- NOTE | 2017-03-12 18:43 | Progress Note ---
DATE: March 12, 2017 CARDIOLOGY PROGRESS NOTE SUBJECTIVE: The patient denies chest pain or shortness of breath. OBJECTIVE VITAL SIGNS: Temperature 100.9 degrees, pulse 113, respiratory rate 18, blood pressure 128/78, oxygen saturation 99% on 4 liters nasal cannula. GENERAL: Obese woman in no acute distress. LUNGS: Clear to auscultation bilaterally. No wheezes or crackles. CARDIOVASCULAR: Tachycardic but regular. No murmur. Normal S1 and S2. ABDOMEN: Soft. Surgical dressing and colostomy present. EXTREMITIES: Diffuse anasarca. CARDIAC MEDICATIONS 1. Metoprolol tartrate 5 mg IV q.8 h. 2. Levothyroxine 100 mcg IV daily. LABS: WBC 9.29, hemoglobin 9.1, hematocrit 27.9, platelets 335. Sodium 150, potassium 3.6, chloride 114, CO2 29, BUN 14, creatinine 0.57. TELEMETRY: Sinus tachycardia. IMPRESSION 1. Septic shock secondary to fecal peritonitis. 2. Systemic inflammatory response syndrome criteria with recurrent fever and leukocytosis. 3. Perforated sigmoid colon status post laparotomy, sigmoid colectomy, colostomy and Elsy pouch. 4. Sinus tachycardia. 5. Acute kidney injury, resolved. 6. Elevated liver function tests, suspect shock liver, improving. RECOMMENDATIONS: Antibiotics per Infectious Disease. Continue current cardiac medications. Once the patient is able to tolerate oral intake, will transition to p.o. medications. Venous Doppler without evidence of DVT. Consider CTA chest to evaluate for PE. Hold off on diuresis at this time given sinus tachycardia. Thank you for this consult. We will continue to follow. Job#: [id number] EV
--- NOTE | 2017-03-12 19:07 | Diagnostic Imaging Report ---
PROCEDURE: CT scan of the chest WITH intravenous contrast, using pulmonary embolus protocol. TECHNIQUE: The chest was scanned utilizing a multidetector helical scanner from the lung apex through the level of the adrenal glands after the IV administration of 54 cc of Isovue 370. Coronal and sagittal multiplanar reformations were obtained. Pulmonary and was protocol was performed COMPARISON: 03/09/2017 INDICATIONS: BILATERAL LEG SWELLING, PE PROTOCOL FINDINGS: Lines/tubes: Left internal jugular central venous catheter has its tip at the cavoatrial junction Pulmonary Arteries: Technically adequate examination. No evidence of pulmonary embolus. The main pulmonary arteries normal in caliber, measuring 2.6 cm Lungs and Airways: Imaging was performed during the expiratory phase. There is bibasilar atelectasis/consolidation appearing similar to the prior examination. Pleura: Small bilateral pleural effusions. No pneumothorax. Heart and mediastinum: There are some mildly prominent paratracheal lymph nodes, unchanged. A right upper paratracheal lymph node (series 2, image 16) measures 1.0 cm. Heart size is normal. No pericardial effusion. Soft tissues: Normal. Abdomen: Limited contrast-enhanced views of the upper abdomen show a small amount of ascites. Bones: Multilevel degenerative changes of the thoracic spine. IMPRESSION: No evidence of pulmonary embolus. Bibasilar atelectasis/consolidation with small bilateral pleural effusions, appearing similar to the prior examination (03/09/2017). Dictated by: Sanchez Shaw M.D. on 03/12/2017 at 19:16 Electronically approved by: Sanchez Shaw M.D. on 03/12/2017 at 19:16
[2017-03-12] MEDS ORDERED: SODIUM CHLORIDE 0.9% 50ML 50 ML ONE (20:55)
[2017-03-12] MEDS ORDERED: IOPAMIDOL 370 MG/ML 200 ML INFUS..BTL INJ ONE (20:55)
[2017-03-12] MEDS: THIAMINE HCL INJ 100 MG/ML 2ML VIAL IM SCH (21:24)
[2017-03-12] MEDS: CENTRAL TPN FORMULA 1 BAG IV SCH (21:26)
[2017-03-13] VITALS (29 sets, daily range): BP systolic 114–155; BP diastolic 73–108
[2017-03-13] MEDS: MEROPENEM 500 MG VIAL IV SCH ×2 (00:52→05:15)
[2017-03-13] MEDS: ACETAMINOPHEN 1000 MG/100 ML IV PRN (00:52)
[2017-03-13] MEDS: LEVALBUTEROL HCL SOLN NEBU 0.63 MG/3 ML NEB INH SCH ×4 (03:15→19:35)
[2017-03-13] MEDS: METOPROLOL TARTRATE INJ 1 MG/ML VIAL IV SCH ×3 (05:14→22:00)
[2017-03-13] MEDS: ACYCLOVIR SODIUM INJ 1,000 MG in SODIUM CHLORIDE 0.9% 250ML 250 ML IV SCH ×3 (05:15→22:00)
[2017-03-13] MEDS: PANTOPRAZOLE 40 MG 10ML VIAL IV SCH (05:15)
[2017-03-13] MEDS: LEVOTHYROXINE SODIUM 100 MCG/VIAL IV SCH (05:15)
[2017-03-13 06:04] LABS: BASOPHILS # (AUTO) 0.1 (0.0-0.1); BASOPHILS % 0.4 % (0.0-1.0); EOSINOPHILS # (AUTO) 0.1 (0.0-0.4); EOSINOPHILS % 0.6 % (0.0-6.0); HEMATOCRIT 30.4 % (34.2-44.1); HEMOGLOBIN 9.8 g/dL (12.0-16.0); LYMPHOCYTES # (AUTO) 1.4 (1.0-3.2); LYMPHOCYTES % 11.6 % (18.0-39.1); MEAN CORPUSCULAR HEMOGLOBIN 31.6 pg (28-32); MEAN CORPUSCULAR HGB CONC 32.2 g/dL (31-35); MEAN CORPUSCULAR VOLUME 98.1 fL (81-99); MONOCYTES # (AUTO) 0.6 (0.2-0.8); MONOCYTES % 4.8 % (4.4-11.3); NEUTROPHILS # (AUTO) 9.6 (2.1-6.9); NEUTROPHILS % 81.3 % (38.7-80.0); PLATELET COUNT 425 x10e3/uL (140-360); RED CELL DISTRIBUTION WIDTH 15.1 % (11.7-14.4)
[2017-03-13 06:26] LABS: ANION GAP 11.4 mmol/L (8-16); BLOOD UREA NITROGEN 13 mg/dL (7-26); BUN/CREATININE RATIO 21 (6-25); CARBON DIOXIDE 27 mmol/L (22-29); CHLORIDE 112 mmol/L (98-107); CREATININE, SERUM 0.61 mg/dL (0.57-1.11); EST GLOMERULAR FILTRATION RATE > 60 ML/MIN (60-); GLUCOSE 113 mg/dL (74-118); POTASSIUM 3.4 mmol/L (3.5-5.1); SODIUM 147 mmol/L (136-145)
[2017-03-13 08:53] LABS: BAND NEUTROPHILS % (MANUAL) 10 %; EOSINOPHILS % (MANUAL) 1 % (0-7); LYMPHOCYTES % (MANUAL) 13 % (19-48); NEUTROPHILS % (MANUAL) 76 % (40-74); PLATELET MORPHOLOGY COMMENT NORMAL; RBC MORPHOLOGY COMMENT NORMAL
[2017-03-13 08:54] LABS: PLATELET ESTIMATE SLIGHTLY INCREASED
[2017-03-13] MEDS ORDERED: CASPOFUNGIN IV SCH (10:00)
[2017-03-13] MEDS ORDERED: SODIUM CHLORIDE 0.9% IV SCH (10:00)
[2017-03-13] MEDS: FENTANYL 50 MCG/HR PATCH TOP SCH (10:49)
[2017-03-13] MEDS ORDERED: POTASSIUM CHLORIDE 20 MEQ TAB CR PO ONE ×3 (11:00→14:12)
[2017-03-13] MEDS ORDERED: FUROSEMIDE INJ 10 MG/ML 4 ML VIAL IV ONE (13:00)
[2017-03-13] MEDS: ACETAMINOPHEN 325 MG TAB PO PRN (16:36)
[2017-03-13] MEDS: CENTRAL TPN FORMULA 1 BAG IV SCH (20:00)
[2017-03-13] MEDS: THIAMINE HCL INJ 100 MG/ML 2ML VIAL IM SCH (21:00)
[2017-03-14] VITALS (8 sets, daily range): BP systolic 118–140; BP diastolic 77–96
[2017-03-14] MEDS: LEVALBUTEROL HCL SOLN NEBU 0.63 MG/3 ML NEB INH SCH ×4 (01:12→19:30)
--- NOTE | 2017-03-14 01:21 | Progress Note ---
DATE: March 13, 2017 CARDIOLOGY PROGRESS NOTE SUBJECTIVE: Denies chest pain or shortness of breath. Feels better overall. OBJECTIVE VITALS: Temperature 100.7, heart rate 109, respiratory rate 18, blood pressure 140/87, O2 sat 98% on 3 L per minute nasal cannula. Telemetry is sinus rhythm. GENERAL: No acute distress. Alert. NECK: No JVD. CHEST: Clear to auscultation. CARDIOVASCULAR: Regular rate and rhythm. Normal S1 and S2. No S3. No S4. ABDOMEN: Mildly distended. EXTREMITIES: No edema. Warm distal extremities. CARDIOVASCULAR MEDICATIONS: Metoprolol tartrate 5 mg IV q.8 h. STUDIES: White blood cells 11.7, hemoglobin 9.8 and platelets 425,000. Sodium 147, potassium 3.4, chloride 112, bicarbonate 27, BUN 13, creatinine 0.6, glucose 143, and calcium 8. ASSESSMENT 1. Septic shock: Status post peritonitis related to perforated sigmoid colon post laparotomy, now status post sigmoid colectomy, colostomy and Elsy pouch. 2. Systemic inflammatory response criteria with recurrent fever and leukocytosis in the setting of the above. 3. Acute kidney injury, improving. 4. Abnormal liver function tests in the setting of shock liver, improving. PLAN: CT negative for pulmonary embolism. Continue antibiotics and incentive device and oral intake as okay with surgery. Keep on telemetry. Preserved left ventricular systolic function on echocardiogram. Job#: [id number] MICHAEL
[2017-03-14] MEDS: ACETAMINOPHEN 1000 MG/100 ML IV PRN (04:21)
[2017-03-14] MEDS: PANTOPRAZOLE 40 MG 10ML VIAL IV SCH (05:07)
[2017-03-14] MEDS: METOPROLOL TARTRATE INJ 1 MG/ML VIAL IV SCH ×3 (05:07→21:49)
[2017-03-14] MEDS: LEVOTHYROXINE SODIUM 100 MCG/VIAL IV SCH (05:07)
[2017-03-14] MEDS: ACYCLOVIR SODIUM INJ 1,000 MG in SODIUM CHLORIDE 0.9% 250ML 250 ML IV SCH ×3 (06:36→21:50)
--- NOTE | 2017-03-14 10:07 | Progress Note ---
DATE: March 14, 2017 CARDIOLOGY PROGRESS NOTE SUBJECTIVE: Denies chest pain or shortness of breath. No complaints at this point. Tolerating clear p.o. intake. Parenteral nutrition in place. OBJECTIVE VITALS: Temperature 98.9, heart rate 96, respiratory rate 19 ,.blood pressure 140/96, O2 sat 98% on 3 L per minute nasal cannula. GENERAL: In no acute distress. Alert. NECK: No JVD. CHEST: Clear to auscultation. CARDIOVASCULAR: Regular rate and rhythm. Normal S1 and S2. Tachycardic. No S3. No S4. ABDOMEN: Distended. Dressings in place. EXTREMITIES: Trace edema. CARDIOVASCULAR MEDICATIONS: Metoprolol tartrate 5 mg IV q.8 h. STUDIES: Glucose 90. Sinus tachycardia on tele. ASSESSMENT 1. Septic shock in the setting of peritonitis related to perforated sigmoid colon: Status post laparotomy, sigmoid colectomy, colostomy, and Elsy pouch. 2. Systemic inflammatory response syndrome criteria with recurrent fever, leukocytosis and tachycardia. 3. Acute kidney injury, improving. 4. Abnormal liver function tests in the setting of shock liver, improving. RECOMMENDATIONS 1. Continue current cardiovascular medications. Advance oral intake as per surgery. 2. Maintain on telemetry. 3. Continue antibiotics. 4. Maintain hydration. 5. PT and OT to limit deconditioning. Job#: [id number] MICHAEL
[2017-03-14] MEDS: ACETAMINOPHEN 325 MG TAB PO PRN (16:49)
[2017-03-14] MEDS: CENTRAL TPN FORMULA 1 BAG IV SCH (20:00)
[2017-03-14] MEDS: THIAMINE HCL INJ 100 MG/ML 2ML VIAL IM SCH (21:00)
[2017-03-14] MEDS: LORAZEPAM INJ 2 MG/ML VIAL IV PRN (22:43)
[2017-03-15] VITALS (7 sets, daily range): BP systolic 116–173; BP diastolic 68–93
[2017-03-15] MEDS: HYDROMORPHONE 2MG/ML INJ IV PRN (00:15)
[2017-03-15] MEDS: ACETAMINOPHEN 325 MG TAB PO PRN ×2 (00:15→06:18)
[2017-03-15] MEDS: LEVALBUTEROL HCL SOLN NEBU 0.63 MG/3 ML NEB INH SCH ×4 (00:30→20:30)
[2017-03-15] MEDS: PIPER-TAZ 3.375 GM 50 ML IV SCH ×2 (00:31→06:17)
[2017-03-15] MEDS: METOPROLOL TARTRATE INJ 1 MG/ML VIAL IV SCH ×3 (06:17→21:23)
[2017-03-15] MEDS: LEVOTHYROXINE SODIUM 100 MCG/VIAL IV SCH (06:17)
[2017-03-15] MEDS: PANTOPRAZOLE 40 MG 10ML VIAL IV SCH (06:17)
[2017-03-15 06:33] LABS: BASOPHILS # (AUTO) 0.1 (0.0-0.1); BASOPHILS % 0.4 % (0.0-1.0); EOSINOPHILS # (AUTO) 0.1 (0.0-0.4); EOSINOPHILS % 0.4 % (0.0-6.0); HEMATOCRIT 27.2 % (34.2-44.1); HEMOGLOBIN 8.9 g/dL (12.0-16.0); LYMPHOCYTES % 6.4 % (18.0-39.1); MEAN CORPUSCULAR HEMOGLOBIN 31.8 pg (28-32); MEAN CORPUSCULAR HGB CONC 32.7 g/dL (31-35); MEAN CORPUSCULAR VOLUME 97.1 fL (81-99); MONOCYTES # (AUTO) 0.3 (0.2-0.8); MONOCYTES % 1.7 % (4.4-11.3); NEUTROPHILS # (AUTO) 14.2 (2.1-6.9); NEUTROPHILS % 89.5 % (38.7-80.0); PLATELET COUNT 469 x10e3/uL (140-360); RED CELL DISTRIBUTION WIDTH 13.8 % (11.7-14.4)
[2017-03-15] MEDS: ACYCLOVIR SODIUM INJ 1,000 MG in SODIUM CHLORIDE 0.9% 250ML 250 ML IV SCH ×3 (06:45→21:23)
[2017-03-15 06:56] LABS: ALANINE AMINOTRANSFERASE 27 IU/L (0-55); ALBUMIN 1.7 g/dL (3.5-5.0); ALBUMIN/GLOBULIN RATIO 0.5 (0.8-2.0); ALKALINE PHOSPHATASE 93 IU/L (40-150); ANION GAP 10.2 mmol/L (8-16); BLOOD UREA NITROGEN 10 mg/dL (7-26); BUN/CREATININE RATIO 18 (6-25); CALCIUM 7.7 mg/dL (8.4-10.2); CARBON DIOXIDE 21 mmol/L (22-29); CHLORIDE 108 mmol/L (98-107); CREATININE, SERUM 0.57 mg/dL (0.57-1.11); EST GLOMERULAR FILTRATION RATE > 60 ML/MIN (60-); GLUCOSE 93 mg/dL (74-118); POTASSIUM 3.2 mmol/L (3.5-5.1); SODIUM 136 mmol/L (136-145)
[2017-03-15] MEDS ORDERED: POTASSIUM CHLORIDE 20MEQ/100ML 200 ML IV ONE (09:00)
--- NOTE | 2017-03-15 15:33 | Diagnostic Imaging Report ---
PROCEDURE: Frontal and lateral views of the chest. COMPARISON: 03/12/17 INDICATIONS: CHANGE IN LABS FINDINGS: Lines/tubes: Stable left internal jugular central line. Lungs: Limited by shallow inspiration and body habitus. There is no definite evidence of pneumonia or pulmonary edema. Pleura: There is no pleural effusion or pneumothorax. Heart and mediastinum: The heart and the mediastinum are normal. Bones: No acute bony abnormality. Partially imaged cervical spine fusion hardware. Surgical clips overlying right supraclavicular area. IMPRESSION: Limited as above. No focal consolidation. Dictated by: Dwayne Maria M.D. on 03/15/2017 at 15:42 Electronically approved by: Dwayne Maria M.D. on 03/15/2017 at 15:42
--- NOTE | 2017-03-15 19:35 | Progress Note ---
DATE: March 15, 2017 SUBJECTIVE: The patient denies chest pain or shortness of breath. She is complaining of being hungry. OBJECTIVE VITAL SIGNS: Temperature 99.2 degrees, pulse 91, respiratory rate 20, blood pressure 118/73, oxygen saturation 96% on 3 liters nasal cannula. GENERAL: Awake, alert and in no acute distress. LUNGS: Clear to auscultation bilaterally. No wheezes or crackles. CARDIOVASCULAR: Tachycardiac but regular. Normal S1 and S2 and no murmur. ABDOMEN: Soft. Dressing is in place and colostomy is present. EXTREMITIES: Trace edema. CARDIAC MEDICATIONS 1. Metoprolol tartrate 5 mg IV q.8 h. 2. Levothyroxine 100 mcg IV daily. LABS: WBC 15.9, hemoglobin 8.9, hematocrit 27.2, platelets 459,000, sodium 136, potassium 3.2, chloride 108, CO2 of 21, BUN 10, creatinine 0.57. TELEMETRY: Sinus tachycardia. IMPRESSION 1. Septic shock in the setting of peritonitis related to perforated sigmoid colon. 2. Systemic inflammatory response syndrome criteria with recurrent fever and leukocytosis. 3. Perforated sigmoid colon status post laparotomy, sigmoid colectomy, colostomy and Elsy pouch. 4. Sinus tachycardia. 5. Acute kidney injury, resolved. 6. Elevated liver function tests, suspect shock liver, improving. RECOMMENDATIONS: Continue current cardiac medications. Once the patient is able to tolerate oral intake, plan to transition metoprolol to p.o. Please continue to monitor the patient on telemetry. Antibiotics per infectious disease. PT and OT as tolerated. Thank you for this consult. We will continue to follow. Job#: [id number]
[2017-03-15] MEDS: THIAMINE HCL INJ 100 MG/ML 2ML VIAL IM SCH (21:22)
[2017-03-15] MEDS: CENTRAL TPN FORMULA 1 BAG IV SCH (21:22)
[2017-03-15] MEDS: ACETAMINOPHEN 1000 MG/100 ML IV PRN (21:30)
[2017-03-15] MEDS ORDERED: SODIUM CHLORIDE 0.9% 250ML 250 ML ONE (21:39)
[2017-03-16] VITALS (7 sets, daily range): BP systolic 118–147; BP diastolic 66–87
[2017-03-16] MEDS: LEVALBUTEROL HCL SOLN NEBU 0.63 MG/3 ML NEB INH SCH ×4 (03:35→20:40)
[2017-03-16] MEDS: LEVOTHYROXINE SODIUM 100 MCG/VIAL IV SCH (05:35)
[2017-03-16] MEDS: ACYCLOVIR SODIUM INJ 1,000 MG in SODIUM CHLORIDE 0.9% 250ML 250 ML IV SCH ×3 (05:35→21:39)
[2017-03-16] MEDS: METOPROLOL TARTRATE INJ 1 MG/ML VIAL IV SCH ×3 (05:35→21:39)
[2017-03-16] MEDS: PANTOPRAZOLE 40 MG 10ML VIAL IV SCH (05:35)
--- NOTE | 2017-03-16 06:15 | Progress Note ---
DATE: No new complaints overnight. Still appears to be confused at times. Does complain of a lot of pain overall. OBJECTIVE VITALS: Her vital signs are stable. She is afebrile. GENERAL: She is in no apparent distress. Lying in bed. CARDIOVASCULAR: Regular rate and rhythm. LUNGS: Decreased breath sounds bilaterally. ABDOMEN: Soft. Colostomy bag intact. EXTREMITIES: No clubbing or cyanosis. NEUROLOGICAL: Moves all extremities times 4. ASSESSMENT AND PLAN 1. Sepsis: Continue with current care. 2. Hypertension: Continue with medication. 3. Anemia: Continue to monitor. 4. Leukocytosis: Continue to monitor. 5. Hypokalemia: Was replaced. Continue to monitor. 6. Hypothyroidism: Continue with her medication. Please hospital chart for full details. Job#: [id number] [place]
[2017-03-16 10:02] LABS: BILIRUBIN,URINE NEGATIVE (NEGATIVE); KETONES,URINE NEGATIVE (NEGATIVE); LEUKOCYTE ESTERASE ,URINE NEGATIVE (NEGATIVE); NITRITE,URINE NEGATIVE (NEGATIVE); PROTEIN,URINE DIPSTICK NEGATIVE (NEGATIVE); URINE UROBILINOGEN 0.2 mg/dL (0.2 - 1)
[2017-03-16 10:23] LABS: CLARITY,URINE CLEAR (CLEAR); COLOR,URINE YELLOW (YELLOW)
[2017-03-16 10:24] LABS: EPITHELIAL CELLS,URINE RARE /LPF; MUCUS,URINE RARE (RARE)
--- NOTE | 2017-03-16 19:27 | Progress Note ---
DATE: March 16, 2017 CARDIOLOGY PROGRESS NOTE SUBJECTIVE: The patient denies chest pain or shortness of breath. OBJECTIVE VITAL SIGNS: Temperature 97.4 degrees, pulse 110, respiratory rate 19, blood pressure 142/87, oxygen saturation 97% on room air. GENERAL: Awake, alert and in no acute distress. LUNGS: Clear to auscultation bilaterally. No wheezes or crackles. CARDIOVASCULAR: Tachycardiac but regular. Normal S1 and S2 and no murmur. ABDOMEN: Soft. Dressing is in place and colostomy is present. EXTREMITIES: Trace edema. CARDIAC MEDICATIONS 1. Metoprolol tartrate 5 mg IV q.8 h. 2. Levothyroxine 100 mcg IV daily. LABS: None today. TELEMETRY: Normal sinus rhythm. IMPRESSION 1. Septic shock in the setting of peritonitis related to perforated sigmoid colon. 2. Systemic inflammatory response syndrome criteria with recurrent fever and leukocytosis. 3. Perforated sigmoid colon status post laparotomy, sigmoid colectomy, colostomy and Elsy pouch. 4. Sinus tachycardia, resolved. 5. Acute kidney injury, resolved. 6. Elevated liver function tests, suspect shock liver, improving. RECOMMENDATIONS: Continue current cardiac medications. Once the patient is cleared for oral intake, the plan is to transition to metoprolol p.o. Continue monitoring the patient on telemetry. Antibiotics per infectious disease. PT and OT as tolerated. Thank you for this consult. We will continue to follow. Job#: [id number]
[2017-03-16] MEDS: CENTRAL TPN FORMULA 1 BAG IV SCH (20:00)
[2017-03-16] MEDS: THIAMINE HCL INJ 100 MG/ML 2ML VIAL IM SCH (21:39)
[2017-03-17] VITALS (7 sets, daily range): BP systolic 126–152; BP diastolic 65–87
[2017-03-17] MEDS: LORAZEPAM INJ 2 MG/ML VIAL IV PRN (01:00)
[2017-03-17] MEDS: LEVALBUTEROL HCL SOLN NEBU 0.63 MG/3 ML NEB INH SCH ×4 (02:55→20:30)
[2017-03-17] MEDS: ACYCLOVIR SODIUM INJ 1,000 MG in SODIUM CHLORIDE 0.9% 250ML 250 ML IV SCH (05:30)
[2017-03-17] MEDS: PANTOPRAZOLE 40 MG 10ML VIAL IV SCH (05:30)
[2017-03-17] MEDS: LEVOTHYROXINE SODIUM 100 MCG/VIAL IV SCH (05:30)
[2017-03-17] MEDS: METOPROLOL TARTRATE INJ 1 MG/ML VIAL IV SCH (05:30)
[2017-03-17 06:19] LABS: BASOPHILS % 0.5 % (0.0-1.0); EOSINOPHILS # (AUTO) 0.1 (0.0-0.4); EOSINOPHILS % 1.1 % (0.0-6.0); HEMATOCRIT 24.5 % (34.2-44.1); HEMOGLOBIN 8.3 g/dL (12.0-16.0); LYMPHOCYTES # (AUTO) 1.4 (1.0-3.2); LYMPHOCYTES % 16.8 % (18.0-39.1); MEAN CORPUSCULAR HGB CONC 33.9 g/dL (31-35); MEAN CORPUSCULAR VOLUME 94.6 fL (81-99); MONOCYTES # (AUTO) 0.6 (0.2-0.8); MONOCYTES % 7.3 % (4.4-11.3); NEUTROPHILS # (AUTO) 6.2 (2.1-6.9); NEUTROPHILS % 73.2 % (38.7-80.0); PLATELET COUNT 589 x10e3/uL (140-360); RED BLOOD COUNT 2.59 x10e6/uL (3.6-5.1); RED CELL DISTRIBUTION WIDTH 13.7 % (11.7-14.4)
--- NOTE | 2017-03-17 13:39 | Progress Note ---
DATE: March 17, 2017 CARDIOLOGY PROGRESS NOTE SUBJECTIVE: The patient denies chest pain or shortness of breath. She reports she is now eating more solid food. OBJECTIVE VITAL SIGNS: Temperature 97.8 degrees, pulse 108, respiratory rate 22, blood pressure 131/87, oxygen saturation 93% on 4 L nasal cannula. GENERAL: Awake, alert, in no acute distress. LUNGS: Clear to auscultation bilaterally. No wheezes or crackles. CARDIOVASCULAR: Tachycardiac but regular. Normal S1 and S2, no murmur. ABDOMEN: Soft and nontender. Dressing is in place, and colostomy is present. EXTREMITIES: Trace edema. CARDIAC MEDICATIONS 1. Levothyroxine 100 mcg IV daily. 2. Metoprolol tartrate 5 mg IV q.8 h. LABS: WBC 8.5, hemoglobin 8.3, hematocrit 24.5, platelets 589. TSH 4.156. TELEMETRY: Sinus tachycardia. IMPRESSION 1. Septic shock in the setting of peritonitis related to perforated sigmoid colon. 2. Systemic inflammatory response syndrome criteria with recurrent fever and leukocytosis. 3. Perforated sigmoid colon status post laparotomy, sigmoid colectomy, colostomy and Elsy pouch. 4. Sinus tachycardia. 5. Acute kidney injury. 6. Elevated liver function tests, suspect shock liver, improved. RECOMMENDATIONS: Continue current cardiac medications. We will transition to metoprolol tartrate 25 mg p.o. q.12 h. Continue monitoring the patient on telemetry. Antibiotics per infectious disease. PT and OT as tolerated. Thank you for this consult. We will continue to follow. Job#: [id number]
[2017-03-17] MEDS: METOPROLOL TARTRATE 25 MG TAB PO SCH (16:12)
[2017-03-17] MEDS: ACETAMINOPHEN 325 MG TAB PO PRN (16:12)
[2017-03-17] MEDS: HYDROCODONE/APAP 7.5MG-325MG 1 EA TAB PO PRN ×2 (16:12→21:20)
--- NOTE | 2017-03-17 19:36 | Diagnostic Imaging Report ---
A single frontal view of the chest. HISTORY: Diverticulitis COMPARISON: Chest radiograph March 15, 2017. DISCUSSION: Portable technique, limits sensitivity of the exam. Soft tissue attenuation partially limits sensitivity of the exam. Multiple overlying coiled monitoring leads. Tubes/Lines: A left approach internal jugular venous catheter, the tip projects in the region of the distal superior vena cava. Lungs and pleura: Low lung volumes result in bibasilar vascular crowding, accentuation of the pulmonary interstitial markings, central pulmonary vasculature, and the cardiac silhouette. Allowing for these limitations, the findings are as follows: Minimal left basilar atelectasis. No evidence of a consolidative pneumonia or pulmonary alveolar edema. No definite pleural effusion or pneumothorax is identified. Heart and mediastinum: The cardiomediastinal silhouette appears unremarkable. Bones: Partially visualized lower cervical anterior fixation hardware. Other: Multiple metallic clips project at the right supraclavicular soft tissues. IMPRESSION: 1. Mild left basilar atelectasis. 2. Otherwise, unremarkable. Signed by: Dr. Vito Elise D.O., M.M.M. on 03/17/2017 7:33 PM
[2017-03-17] MEDS: THIAMINE HCL INJ 100 MG/ML 2ML VIAL IM SCH (20:15)
[2017-03-17] MEDS: ZOLPIDEM TARTRATE 10 MG TAB PO SCH (21:20)
[2017-03-18] VITALS (8 sets, daily range): BP systolic 123–146; BP diastolic 71–92
[2017-03-18] MEDS: LEVALBUTEROL HCL SOLN NEBU 0.63 MG/3 ML NEB INH SCH ×4 (02:00→19:42)
[2017-03-18] MEDS: ACETAMINOPHEN 325 MG TAB PO PRN (05:30)
[2017-03-18] MEDS: LEVOTHYROXINE SODIUM 100 MCG/VIAL IV SCH (05:30)
[2017-03-18] MEDS: PANTOPRAZOLE 40 MG 10ML VIAL IV SCH (05:30)
[2017-03-18] MEDS: METOPROLOL TARTRATE 25 MG TAB PO SCH ×2 (09:22→16:55)
[2017-03-18] MEDS: HYDROCODONE/APAP 7.5MG-325MG 1 EA TAB PO PRN ×3 (09:22→20:59)
--- NOTE | 2017-03-18 12:46 | Progress Note ---
DATE: March 18, 2017 CARDIOLOGY PROGRESS NOTE SUBJECTIVE: The patient denies chest pain or shortness of breath. OBJECTIVE VITAL SIGNS: Temperature 98.3 degrees, pulse 104, respiratory rate 20, blood pressure 129/74, and oxygen saturation 93% on 4 L nasal cannula. GENERAL: Obese woman, in no acute distress, awake and alert. LUNGS: Clear to auscultation bilaterally. No wheezes or crackles. CARDIOVASCULAR: Normal rate, regular rhythm. No murmur. Normal S1 and S2. ABDOMEN: Soft and nontender. Dressing is in place. Colostomy is present. EXTREMITIES: Trace edema. CARDIAC MEDICATIONS 1. Metoprolol tartrate 25 mg p.o. b.i.d. 2. Levothyroxine 100 mcg IV daily. LABORATORY DATA: None today. TELEMETRY: Normal sinus rhythm. IMPRESSION 1. Septic shock in the setting of peritonitis related to perforated sigmoid colon. 2. Perforated sigmoid colon, status post laparotomy, sigmoid colectomy, colostomy, and Elsy's pouch. 3. Sinus tachycardia, improved. 4. Acute kidney injury. 5. Elevated liver function tests, suspect shock liver, improved. RECOMMENDATIONS: Continue current cardiac medications. Monitor the patient on telemetry. Antibiotics per infectious disease. PT and OT as tolerated. Thank you for this consult. We will continue to follow. Job#: [id number]
[2017-03-18] MEDS: THIAMINE HCL INJ 100 MG/ML 2ML VIAL IM SCH (20:59)
[2017-03-18] MEDS: ZOLPIDEM TARTRATE 10 MG TAB PO SCH (21:54)
[2017-03-19 00:55] VITALS: BP 141/84
[2017-03-19] MEDS: LEVALBUTEROL HCL SOLN NEBU 0.63 MG/3 ML NEB INH SCH ×4 (01:07→19:20)
[2017-03-19] MEDS: PANTOPRAZOLE 40 MG 10ML VIAL IV SCH (05:22)
[2017-03-19] MEDS: LEVOTHYROXINE SODIUM 100 MCG/VIAL IV SCH (05:22)
[2017-03-19 06:30] VITALS: BP 138/85
[2017-03-19] MEDS: HYDROCODONE/APAP 7.5MG-325MG 1 EA TAB PO PRN ×2 (08:26→22:11)
[2017-03-19] MEDS: METOPROLOL TARTRATE 25 MG TAB PO SCH ×2 (08:26→18:08)
[2017-03-19 08:33] VITALS: BP 136/83
[2017-03-19 12:26] VITALS: BP 132/73
--- NOTE | 2017-03-19 14:35 | Progress Note ---
DATE: March 19, 2017 CARDIOLOGY PROGRESS NOTE SUBJECTIVE: The patient denies chest pain. She is complaining of some shortness of breath. OBJECTIVE VITAL SIGNS: Temperature 98.2 degrees, pulse 100, respiratory rate 18, blood pressure 136/83, oxygen saturation 95% on 3 L nasal cannula. GENERAL: Obese woman in no acute distress, awake and alert, sitting up in chair. LUNGS: Clear to auscultation bilaterally. No wheezes or crackles. CARDIOVASCULAR: Normal rate, regular rhythm. No murmur. Normal S1 and S2. ABDOMEN: Soft and nontender. Dressing is in place. Colostomy is present. EXTREMITIES: Trace edema. CARDIAC MEDICATIONS 1. Metoprolol tartrate 25 mg p.o. b.i.d. 2. Levothyroxine 100 mcg IV daily. LABS: None today. TELEMETRY: Normal sinus rhythm. IMPRESSION 1. Septic shock in the setting of peritonitis related to perforated sigmoid colon. 2. Perforated sigmoid colon, status post laparotomy, sigmoid colectomy, colostomy, and Elsy's pouch. 3. Sinus tachycardia, improved. 4. Acute kidney injury. 5. Elevated liver function tests, suspect shock liver, improved. RECOMMENDATIONS: Continue current cardiac medications. Monitor the patient on telemetry. Antibiotics per infectious disease. Will get x-ray given complaint of shortness of breath. PT and OT as tolerated. Thank you for this consult. We will continue to follow. Job#: [id number]
--- NOTE | 2017-03-19 14:52 | Diagnostic Imaging Report ---
PROCEDURE: A single AP view of the chest. COMPARISON: [facility], CT, CT CHEST W, 03/12/2017, 18:37. Patients [facility], DX, CHEST 2 VIEWS, 03/15/2017, 14:53. INDICATIONS: SHORT OF BREATH FINDINGS: Lines/tubes: Stable left internal jugular central line. Lungs: The lungs are well inflated and clear. There is no evidence of pneumonia or pulmonary edema. Pleura: There is no pleural effusion or pneumothorax. Stable eventration of the right hemidiaphragm. Heart and mediastinum: Cardiac silhouette is unremarkable. Pulmonary vasculature is normal. Bones: No acute bony abnormality. IMPRESSION: 1. No acute cardiopulmonary abnormalities. Christo Lynn M.D. Dictated by: Christo Lynn M.D. on 03/19/2017 at 15:02 Electronically approved by: Christo Lynn M.D. on 03/19/2017 at 15:02
[2017-03-19 16:16] VITALS: BP 129/67
[2017-03-19 19:41] VITALS: BP 146/87
[2017-03-19] MEDS: THIAMINE HCL INJ 100 MG/ML 2ML VIAL IM SCH (22:11)
[2017-03-19] MEDS: ZOLPIDEM TARTRATE 10 MG TAB PO SCH (22:11)
[2017-03-20] VITALS (7 sets, daily range): BP systolic 126–143; BP diastolic 69–84
[2017-03-20] MEDS: LEVALBUTEROL HCL SOLN NEBU 0.63 MG/3 ML NEB INH SCH ×4 (01:10→19:35)
[2017-03-20] MEDS: LEVOTHYROXINE SODIUM 100 MCG/VIAL IV SCH (06:00)
[2017-03-20] MEDS: PANTOPRAZOLE 40 MG 10ML VIAL IV SCH (06:00)
[2017-03-20] MEDS: HYDROCODONE/APAP 7.5MG-325MG 1 EA TAB PO PRN ×3 (08:10→21:30)
[2017-03-20] MEDS: METOPROLOL TARTRATE 25 MG TAB PO SCH ×2 (08:32→17:06)
[2017-03-20] MEDS ORDERED: POTASSIUM CHLORIDE 20 MEQ TAB CR PO PRN (12:30)
[2017-03-20] MEDS: THIAMINE HCL INJ 100 MG/ML 2ML VIAL IM SCH (21:00)
[2017-03-20] MEDS: ZOLPIDEM TARTRATE 10 MG TAB PO SCH (21:00)
[2017-03-21] VITALS: BP 136/74
[2017-03-21] MEDS: LEVALBUTEROL HCL SOLN NEBU 0.63 MG/3 ML NEB INH SCH ×3 (01:07→13:00)
[2017-03-21 04:00] VITALS: BP 134/73
[2017-03-21 05:17] VITALS: BP 136/74
[2017-03-21] MEDS: LEVOTHYROXINE SODIUM 100 MCG/VIAL IV SCH (05:57)
[2017-03-21] MEDS: PANTOPRAZOLE 40 MG 10ML VIAL IV SCH (05:57)
[2017-03-21 06:09] LABS: BASOPHILS % 0.6 % (0.0-1.0); EOSINOPHILS # (AUTO) 0.3 (0.0-0.4); HEMATOCRIT 25.5 % (34.2-44.1); HEMOGLOBIN 8.3 g/dL (12.0-16.0); LYMPHOCYTES # (AUTO) 1.3 (1.0-3.2); LYMPHOCYTES % 20.5 % (18.0-39.1); MEAN CORPUSCULAR HGB CONC 32.5 g/dL (31-35); MEAN CORPUSCULAR VOLUME 95.1 fL (81-99); MONOCYTES # (AUTO) 0.6 (0.2-0.8); MONOCYTES % 9.1 % (4.4-11.3); NEUTROPHILS % 63.5 % (38.7-80.0); PLATELET COUNT 607 x10e3/uL (140-360); RED BLOOD COUNT 2.68 x10e6/uL (3.6-5.1); RED CELL DISTRIBUTION WIDTH 13.4 % (11.7-14.4)
[2017-03-21 06:40] LABS: ANION GAP 9.9 mmol/L (8-16); BLOOD UREA NITROGEN 5 mg/dL (7-26); BUN/CREATININE RATIO 9 (6-25); CALCIUM 8.2 mg/dL (8.4-10.2); CARBON DIOXIDE 26 mmol/L (22-29); CHLORIDE 108 mmol/L (98-107); CREATININE, SERUM 0.58 mg/dL (0.57-1.11); EST GLOMERULAR FILTRATION RATE > 60 ML/MIN (60-); GLUCOSE 97 mg/dL (74-118); SODIUM 141 mmol/L (136-145)
[2017-03-21 06:43] LABS: POTASSIUM 2.9 mmol/L (3.5-5.1)
[2017-03-21] MEDS: HYDROCODONE/APAP 7.5MG-325MG 1 EA TAB PO PRN (07:19)
[2017-03-21] MEDS ORDERED: POTASSIUM CHLORIDE 20MEQ/100ML 100 ML IV ONE (07:45)
[2017-03-21] MEDS: METOPROLOL TARTRATE 25 MG TAB PO SCH (07:53)
[2017-03-21 08:06] VITALS: BP 130/71
[2017-03-21 12:05] VITALS: BP 117/57
== END 2017-03-21 13:55 | disposition home health service (06) | DRG 853 ==
LOC: ER 15:06 → ERHOLD 19:39 → UNDOADMIN 19:39 → OR 03-03 00:31 → ICU 03-03 03:03 → OR 03-03 11:20 → ICU 03-03 11:22 → MED/SURG2 03-13 17:37
PROVIDERS: ADMIT Surgery; ATTEND Surgery
PROC: 0D1M0Z4 Bypass Descending Colon to Cutaneous, Open Approach (ICD-10-PCS; 2017-03-03)
PROC: 3E1M38Z Irrigation of Peritoneal Cavity using Irrigating Substance, Percutaneous Approach (ICD-10-PCS; 2017-03-03)
PROC: 0BH17EZ Insertion of Endotracheal Airway into Trachea, Via Natural or Artificial Opening (ICD-10-PCS; 2017-03-03)
PROC: 5A1955Z Respiratory Ventilation, Greater than 96 Consecutive Hours (ICD-10-PCS; 2017-03-03)
PROC: 02HV33Z Insertion of Infusion Device into Superior Vena Cava, Percutaneous Approach (ICD-10-PCS; 2017-03-03)
PROC: 3E043XZ Introduction of Vasopressor into Central Vein, Percutaneous Approach (ICD-10-PCS; 2017-03-03)
PROC: 0DTN0ZZ Resection of Sigmoid Colon, Open Approach (ICD-10-PCS; principal; 2017-03-03 01:01)
PROC: 3E0436Z Introduction of Nutritional Substance into Central Vein, Percutaneous Approach (ICD-10-PCS; 2017-03-06)
PROC: 02HV33Z Insertion of Infusion Device into Superior Vena Cava, Percutaneous Approach (ICD-10-PCS; 2017-03-10)
DX: A41.9 Sepsis, unspecified organism (principal); R65.21 Severe sepsis with septic shock; N17.0 Acute kidney failure with tubular necrosis; K72.00 Acute and subacute hepatic failure without coma; J96.90 Respiratory failure, unspecified, unspecified whether with hypoxia or hypercapnia; K63.1 Perforation of intestine (nontraumatic); K65.0 Generalized (acute) peritonitis; E87.2 Acidosis; B02.9 Zoster without complications; G93.40 Encephalopathy, unspecified; Z68.41 Body mass index [BMI] 40.0-44.9, adult; E66.9 Obesity, unspecified; I12.9 Hypertensive chronic kidney disease with stage 1 through stage 4 chronic kidney disease, or unspecified chronic kidney disease; N18.9 Chronic kidney disease, unspecified; M79.7 Fibromyalgia; E03.9 Hypothyroidism, unspecified; E78.5 Hyperlipidemia, unspecified; E86.0 Dehydration; Z87.891 Personal history of nicotine dependence; K59.09 Other constipation; T50.905A Adverse effect of unspecified drugs, medicaments and biological substances, initial encounter; D64.9 Anemia, unspecified; G89.29 Other chronic pain; E87.6 Hypokalemia; F32.9 Major depressive disorder, single episode, unspecified; F41.9 Anxiety disorder, unspecified; R53.81 Other malaise; Z78.1 Physical restraint status; Z79.82 Long term (current) use of aspirin; Z88.5 Allergy status to narcotic agent; Z88.1 Allergy status to other antibiotic agents
CPT/HCPCS: 36415; 36556; 36600; 71045; 71046; 71260; 74177; 74470; 76937; 77001; 80048; 80053; 80202; 81001; 82550; 82553; 82805; 82948; 83605; 83690; 83735; 84132; 84443; 84484; 85025; 85610; 85730; 86850; 86900; 87040; 87070; 87086; 87400; 88307; 93005; 93306; 93970; 94002; 94003; 94640; 96365; 96366; 96367; 96375; 97139; 99284; C1751; J1160; J1200; J1885; J1940; J2001; J2060; J2185; J2248; J2250; J2270; J2370; J2405; J2543; J2550; J2930; J3370; J3411; J3480; J7030; J7040; J7050; J7070; J7120; Q9967

== ENCOUNTER 2017-03-27 20:25 | Emergency (ER) | payer MEDICARE ==
[~2017-03-27] VITALS: Ht 165.1 cm; Wt 109.8 kg
--- OUTSIDE RECORDS SUMMARY | 2017-03-27 20:29 | XMS REPORT ---
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 Allergies, Adverse Reactions, Alerts This patient has no known allergies or adverse reactions. Medications This patient has no known medications. Results Test Description Test Time Test Comments Text Results Atomic Results Result Comments CHEST SINGLE (PORTABLE) [place] [id number] Patient Name: JENNIFER ASCENCIO MR #: [id number] : 1960 Age/Sex: 56/F Req #: [id number] Adm Physician: ANETTE BRADLEY MD Ordered by: VIRGIL WALLER MD Report #: [id number] Location: MED/SURG Room/Bed: [facility] Procedure: [id number] DX/CHEST SINGLE (PORTABLE) Exam Date: 03/19/17 Exam Time: 1400 REPORT STATUS: Signed PROCEDURE: A single AP view of the chest. COMPARISON: [facility], CT, CT CHEST W, 03/12/2017, 18:37. [facility], DX, CHEST 2 VIEWS, 03/15/2017, 14:53. INDICATIONS: SHORT OF BREATH FINDINGS: Lines/tubes: Stable left internal jugular central line. Lungs: The lungs are well inflated and clear. There is no evidence of pneumonia or pulmonary edema. Pleura: There is no pleural effusion or pneumothorax. Stable eventration of the right hemidiaphragm. Heart and mediastinum: Cardiac silhouette is unremarkable. Pulmonary vasculature is normal. Bones: No acute bony abnormality. IMPRESSION: 1. No acute cardiopulmonary abnormalities. Christo Cedeno M.D. Dictated by: Christo Cedeno M.D. on 03/19/2017 at 15:02 Electronically approved by: Christo Cedeno M.D. on 03/19/2017 at 15:02 Dictated By: CHRISTO CEDENO MD 1502 Transcribed By: BHAVYA on 03/19/17 1502 COPY TO: VIRGIL WALLER MD CHEST SINGLE (PORTABLE) [place] [address] Patient Name: JENNIFER ASCENCIO MR #: [id number] : 1960 Age/Sex: 56/F Req #: [id number] Adm Physician: ANETTE BRADLEY MD Ordered by: BELL PAZ MD Report #: [id number] Location: MED/SURG2 Room/Bed: [facility] Procedure: [id number] DX/CHEST SINGLE (PORTABLE) Exam Date: 03/17/17 Exam Time: 1900 REPORT STATUS: Signed A single frontal view of the chest. HISTORY: Diverticulitis COMPARISON: Chest radiograph March 15, 2017. DISCUSSION: Portable technique, limits sensitivity of the exam. Soft tissue attenuation partially limits sensitivity of the exam. Multiple overlying coiled monitoring leads. Tubes/Lines: A left approach internal jugular venous catheter, the tip projects in the region of the distal superior vena cava. Lungs and pleura: Low lung volumes result in bibasilar vascular crowding, accentuation of the pulmonary interstitial markings, central pulmonary vasculature, and the cardiac silhouette. Allowing for these limitations, the findings are as follows: Minimal left basilar atelectasis. No evidence of a consolidative pneumonia or pulmonary alveolar edema. No definite pleural effusion or pneumothorax is identified. Heart and mediastinum: The cardiomediastinal silhouette appears unremarkable. Bones: Partially visualized lower cervical anterior fixation hardware. Other: Multiple metallic clips project at the right supraclavicular soft tissues. IMPRESSION: 1. Mild left basilar atelectasis. 2. Otherwise, unremarkable. Signed by: Dr. Vito Jimenez D.O., M.M.M. on 03/17/2017 7:33 PM Dictated By: VITO JIMENEZ DO 32 Transcribed By: ALENA on 03/17/171932 COPY TO: BELL PAZ MD CHEST 2 VIEWS [place] [address] Patient Name: JENNIFER ASCENCIO MR #: [id number] : 1960 Age/Sex: 56/F Req #: [id number] Adm Physician: ANETTE BRADLEY MD Ordered by: HUGO BRADLEY MD Report #: [id number] Location: MED/SURG2 Room/Bed: [facility] Procedure: [id number] DX/CHEST 2 VIEWS Exam Date: 03/15/17 Exam Time: 1440 REPORT STATUS: Signed PROCEDURE: Frontal and lateral views of the chest. COMPARISON: 03/12/17 INDICATIONS: CHANGE IN LABS FINDINGS: Lines/tubes: Stable left internal jugular central line. Lungs: Limited by shallow inspiration and body habitus. There is no definite evidence of pneumonia or pulmonary edema. Pleura: There is no pleural effusion or pneumothorax. Heart and mediastinum: The heart and the mediastinum are normal. Bones: No acute bony abnormality. Partially imaged cervical spine fusion hardware. Surgical clips overlying right supraclavicular area. IMPRESSION : Limited as above. No focal consolidation. Dictated by: Dwayne Petit M.D. on 03/15/2017 at 15:42 Electronically approved by: Dwayne Petit M.D. on 03/15/2017 at 15:42 Dictated By: DWAYNE PETIT MD 41 Transcribed By: BHAVYA on 03/15/171541 COPY TO: HUGO BRADLEY MD CT CHEST W [place] [address] Patient Name: JENNIFER ASCENCIO MR #: [id number] : 1960 Age/Sex: 56/F Req #: [id number] Adm Physician: ANETTE BRADLEY MD Ordered by: VIRGIL WALLER MD Report #: [id number] Location: ICU Room/Bed: ICU [facility] ___ Procedure: [id number] CT/CT CHEST W Exam Date: Exam Time: REPORT STATUS: Signed PROCEDURE: CT scan of the chest WITH intravenous contrast, using pulmonary embolus protocol. TECHNIQUE: The chest was scanned utilizing a multidetector helical scanner from the lung apex through the level of the adrenal glands after the IV administration of 54 cc of Isovue 370. Coronal and sagittal multiplanar reformations were obtained. Pulmonary and was protocol was performed COMPARISON: 03/09/2017 INDICATIONS: BILATERAL LEG SWELLING, PE PROTOCOL FINDINGS: Lines/tubes: Left internal jugular central venous catheter has its tip at the cavoatrial junction Pulmonary Arteries: Technically adequate examination. No evidence of pulmonary embolus. The main pulmonary arteries normal in caliber, measuring 2.6 cm Lungs and Airways: Imaging was performed during the expiratory phase. There is bibasilar atelectasis/consolidation appearing similar to the prior examination. Pleura: Small bilateral pleural effusions. No pneumothorax. Heart and mediastinum: There are some mildly prominent paratracheal lymph nodes, unchanged. A right upper paratracheal lymph node (series 2, image 16) measures 1.0 cm. Heart size is normal. No pericardial effusion. Soft tissues: Normal. Abdomen: Limited contrast-enhanced views of the upper abdomen show a small amount of ascites. Bones: Multilevel degenerative changes of the thoracic spine. IMPRESSION: No evidence of pulmonary embolus. Bibasilar atelectasis/consolidation with small bilateral pleural effusions, appearing similar to the prior examination (03/09/2017). Dictated by: Sudhir Shaw M.D. on 03/12/2017 at 19:16 Electronically approved by: Sudhir Shaw M.D. on 03/12/2017 at 19:16 Dictated By: SUDHIR SHAW MD 15 Transcribed By: BHAVYA on 1915 COPY TO: VIRGIL WALLER MD CHEST SINGLE (PORTABLE) [place] [address] Patient Name: JENNIFER ASCENCIO MR #: [id number] : 1960 Age/Sex: 56/F Req #: [id number] Adm Physician: ANETTE BRADLEY MD Ordered by: ZEB SERNA MD Report #: [id number] Location: ICU Room/Bed: ICU [facility] Procedure: [id number] DX/CHEST SINGLE (PORTABLE) Exam Date: 03/12/17 Exam Time: 0455 REPORT STATUS: Signed CHEST SINGLE (PORTABLE), 03/12/2017 5:00 AM Technique: CHEST SINGLE (PORTABLE) Comparison: 03/08/2017 Clinical history: Abnormal breath sounds Findings: See Impression Impression: 1. Lines/Tubes : Left IJ central venous catheter tip at the cavoatrial junction. Removal of right IJ CVC and NG tube. 2. Bibasilar opacities, favor atelectasis with layering pleural fluid, left greater than right. Signed by: Dr Mikie Kowalski MD on 03/12/2017 6:00 AM Dictated By: MIKIE KOWALSKI MD 06 Transcribed By: ALENA on 03/12/17 06 COPY TO: ZEB SERNA MD NON-TUNNELLED CVC CATH PLACMNT [place] [address] Patient Name: JENNIFER ASCENCIO MR #: [id number] : 1960 Age/Sex: 56/F Req #: [id number] [facility] Physician: ANETTE BRADLEY MD Ordered by: ZEB SERNA MD Report #: [id number] Location: ICU Room/Bed: [place] [address] Procedure: [id number] IR/NON-TUNNELLED CVC CATH PLACMNT Exam Date: 03/10/17 Exam Time: 1128 REPORT STATUS: Signed PROCEDURE: NON-TUNNELLED CVC CATH PLACMNT COMPARISON: Chest radiograph 03/10/2017. INDICATIONS: Fever, suspected infection of right internal jugular central venous catheter COMPLICATIONS: No immediate Estimated blood loss: Minimal Blood products administered: None Specimens: None Implants/grafts: 7 Tunisian 20 cm triple-lumen central venous catheter Sedation: None MEDICATIONS: Lidocaine 1% for local anesthesia Condition at completion of procedure: Guarded Disposition: ICU Fluoroscopy time: 0.4 minutes Air Kerma: 4.74 mGy Contrast: None PROCEDURE: Informed consent was obtained from the next of kin and documented in the medical record. The patient was placed in the supine position on the fluoroscopic table. Preliminary sonographic evaluation of the left cervical region confirmed patency of the internal jugular vein, evidenced by compressibility. The left cervical region was then prepped and draped in the standard sterile fashion. 1% lidocaine was infiltrated into the skin and subcutaneous tissues for local anesthesia. Then under continuous sonographic guidance, an 18 gauge single wall needle was used to access the left internal jugular vein. A permanent sonographic image was stored in the medical record. A 0.035 inch wire was then advanced through the needle and into the inferior vena cava under fluoroscopic guidance. The needle was removed over the wire and the tract was dilated. Then, a 7 Tunisian, 20 cm triple lumen central venous catheter was advanced over the wire to full depth. The wire was removed and the catheter tip was positioned at the superior cavoatrial junction. Each lumen was tested and showed adequate bidirectional flow. The catheter was then flushed with sterile saline and secured to the skin with monofilament nylon suture. A sterile dressing was applied. The patient tolerated the procedure well without immediate complication. Findings: Patent left internal jugular vein. CONCLUSION: Successful placement of a 7 Tunisian, 20 cm triple-lumen central venous catheter via a left internal jugular approach under sonographic and fluoroscopic guidance. Dictated by : Justin Goncalves M.D. on 03/10/2017 at 13:34 Electronically approved by: Justin Goncalves M.D. on 03/10/2017 at 13:34 Dictated By: JUSTIN GONCALVES MD 1331 Transcribed By: BHAVYA on 03/10/17 1334 COPY TO: ZEB SERNA MD FLUORO GUIDANCE [address]/REM [place] [address] Patient Name: JENNIFER ASCENCIO MR #: [id number] : 1960 Age/Sex: 56/F Req #: [id number] Adm Physician: ANETTE BRADLEY MD Ordered by: ZEB SERNA MD Report #: [id number] Location: ICU Room/Bed: [place] [address] Procedure: [id number] DX/FLUORO GUIDANCE [address]/ REM Exam Date: 03/10/17 Exam Time: 1128 REPORT STATUS: Signed PROCEDURE: NON-TUNNELLED CVC CATH PLACMNT COMPARISON: Chest radiograph 03/10/2017. INDICATIONS: Fever, suspected infection of right internal jugular central venous catheter COMPLICATIONS: No immediate Estimated blood loss: Minimal Blood products administered: None Specimens: None Implants/grafts: 7 Tunisian 20 cm triple-lumen central venous catheter Sedation: None MEDICATIONS: Lidocaine 1% for local anesthesia Condition at completion of procedure: Guarded Disposition: ICU Fluoroscopy time: 0.4 minutes Air Kerma: 4.74 mGy Contrast: None PROCEDURE: Informed consent was obtained from the next of kin and documented in the medical record. The patient was placed in the supine position on the fluoroscopic table. Preliminary sonographic evaluation of the left cervical region confirmed patency of the internal jugular vein, evidenced by compressibility. The left cervical region was then prepped and draped in the standard sterile fashion. 1% lidocaine was infiltrated into the skin and subcutaneous tissues for local anesthesia. Then under continuous sonographic guidance, an 18 gauge single wall needle was used to access the left internal jugular vein. A permanent sonographic image was stored in the medical record. A 0.035 inch wire was then advanced through the needle and into the inferior vena cava under fluoroscopic guidance. The needle was removed over the wire and the tract was dilated. Then, a 7 Tunisian, 20 cm triple lumen central venous catheter was advanced over the wire to full depth. The wire was removed and the catheter tip was positioned at the superior cavoatrial junction. Each lumen was tested and showed adequate bidirectional flow. The catheter was then flushed with sterile saline and secured to the skin with monofilament nylon suture. A sterile dressing was applied. The patient tolerated the procedure well without immediate complication. Findings: Patent left internal jugular vein. CONCLUSION: Successful placement of a 7 Tunisian, 20 cm triple-lumen central venous catheter via a left internal jugular approach under sonographic and fluoroscopic guidance. Dictated by : Justin Goncalves M.D. on 03/10/2017 at 13:34 Electronically approved by: Justin Goncalves M.D. on 03/10/2017 at 13:34 Dictated By: JUSTIN GONCALVES MD 133 Transcribed By: BHAVYA on 03/10/17 1334 COPY TO: ZEB SERNA MD IR CONSULT [place] [address] Patient Name: JENNIFER ASCENCIO MR #: [id number] : 1960 Age/Sex: 56/F Req #: [id number] Adm Physician: ANETTE BRADLEY MD Ordered by: ZEB SERNA MD Report #: [id number] Location: ICU Room/Bed: [place] [address] ___ Procedure: [id number] DX/IR CONSULT Exam Date: Exam Time: REPORT STATUS: Signed PROCEDURE: NON-TUNNELLED CVC CATH PLACMNT COMPARISON: Chest radiograph 03/10/2017. INDICATIONS: Fever, suspected infection of right internal jugular central venous catheter COMPLICATIONS: No immediate Estimated blood loss: Minimal Blood products administered: None Specimens: None Implants/grafts: 7 Tunisian 20 cm triple- lumen central venous catheter Sedation: None MEDICATIONS: Lidocaine 1% for local anesthesia Condition at completion of procedure: Guarded Disposition: ICU Fluoroscopy time: 0.4 minutes Air Kerma: 4.74 mGy Contrast: None PROCEDURE: Informed consent was obtained from the next of kin and documented in the medical record. The patient was placed in the supine position on the fluoroscopic table. Preliminary sonographic evaluation of the left cervical region confirmed patency of the internal jugular vein, evidenced by compressibility. The left cervical region was then prepped and draped in the standard sterile fashion. 1% lidocaine was infiltrated into the skin and subcutaneous tissues for local anesthesia. Then under continuous sonographic guidance, an 18 gauge single wall needle was used to access the left internal jugular vein. A permanent sonographic image was stored in the medical record. A 0.035 inch wire was then advanced through the needle and into the inferior vena cava under fluoroscopic guidance. The needle was removed over the wire and the tract was dilated. Then, a 7 Tunisian, 20 cm triple lumen central venous catheter was advanced over the wire to full depth. The wire was removed and the catheter tip was positioned at the superior cavoatrial junction. Each lumen was tested and showed adequate bidirectional flow. The catheter was then flushed with sterile saline and secured to the skin with monofilament nylon suture. A sterile dressing was applied. The patient tolerated the procedure well without immediate complication. Findings: Patent left internal jugular vein. CONCLUSION: Successful placement of a 7 Tunisian, 20 cm triple-lumen central venous catheter via a left internal jugular approach under sonographic and fluoroscopic guidance. Dictated by : Justin Goncalves M.D. on 03/10/2017 at 13:34 Electronically approved by: Justin Goncalves M.D. on 03/10/2017 at 13:34 Dictated By: JUSTIN GONCALVES MD 1337 Transcribed By: BHAVYA on 03/10/17 1335 COPY TO: ZEB SERNA MD GUIDANCE FOR VASCULAR ACCES [place] [address] Patient Name: JENNIFER ASCENCIO MR #: [id number] : 1960 Age/Sex: 56/F Req #: [id number] Adm Physician: ANETTE BRADLEY MD Ordered by: ANETTE BRADLEY MD Report #: [id number] Location: ICU Room/Bed: ICU 196 Procedure: [id number] US/US GUIDANCE FOR VASCULAR ACCES Exam Date: 03/10/17 Exam Time: 1144 REPORT STATUS: Signed PROCEDURE: ULTRASOUND GUIDANCE FOR VASCULAR ACCESS COMPARISON: None. INDICATIONS: Central Line Placement FINDINGS: Left internal jugular vein is noted to be patent. Ultrasound guidance was utilized for access for central line placement. CONCLUSION : Patent left internal jugular vein. Successful ultrasound guidance for central line placement. Dictated by: Justin Goncalves M.D. on 03/10/2017 at 13 :35 Electronically approved by: Justin Goncalves M.D. on 03/10/2017 at 13:35 Dictated By: JUSTIN GONCALVES MD 34 Transcribed By: BHAVYA on 03/10/17 133 COPY TO : ANETTE BRADLEY MD CT ABDOMEN/PELVIS [place] [address] Patient Name: JENNIFER ASCENCIO MR #: [id number] : 1960 Age/Sex: 56/F Req #: [id number] Adm Physician: ANETTE BRADLEY MD Ordered by: ZEB SERNA MD Report #: [id number] Location: ICU Room/Bed: ICU 196 Procedure: [id number] CT/CT ABDOMEN/PELVIS W Exam Date: Exam Time: REPORT STATUS: Signed PROCEDURE: CT CHEST, ABDOMEN AND PELVIS WITH CONTRAST TECHNIQUE: The chest, abdomen and pelvis were scanned utilizing a multidetector helical scanner from the lung apex to the lesser trochanter after the IV administration of 100 cc of Isovue 370 and the oral administration of Gastrografin. Coronal and sagittal multiplanar reformations were obtained. COMPARISON: CT abdomen and pelvis 03/02/2017. 03/25/16. INDICATIONS: ABD PAIN FINDINGS: LINES and TUBES: New endotracheal tube with tip in the appropriate position. A right IJ central line with tip at mid SVC. NG tube in the stomach. Right lower quadrant surgical drain. Tejeda catheter in place. LUNGS and AIRWAY: Bilateral lower lobe compressive atelectasis. PLEURA: Small bilateral pleural effusions. MEDIASTINUM: Cardiac mediastinal silhouette is within normal limits. No axillary, hilar, or mediastinal adenopathy by size criteria. Thyroid is unremarkable. Mild atherosclerotic calcifications in the coronary arteries. HEPATOBILIARY: Stable benign-appearing 0.4 cm too small to characterize hypodensity in segment 4A (series 2 image 43). No biliary ductal dilatation. Gallbladder: Gallbladder has decompressed compared to prior examination. SPLEEN: No splenomegaly. PANCREAS: No focal masses or ductal dilatation. ADRENALS: No adrenal nodules. KIDNEYS /URETERS: No hydronephrosis, stones, or solid mass lesions. PELVIC ORGANS/ BLADDER: Unremarkable. PERITONEUM / RETROPERITONEUM: Resolved free air. Residual trace free fluid in the left abdomen and adjacent to the gallbladder. LYMPH NODES: No lymphadenopathy. VESSELS: Unremarkable. GI TRACT: Postoperative changes of sigmoid resection with a left lower quadrant end colostomy. Wall thickening of the descending and transverse colon. Very mild wall thickening of the small bowel, likely reactive. Visualized appendix is normal. BONES AND SOFT TISSUES: New midline laparotomy scar with skin scott. Posterior fusion with transpedicular screws and interconnecting rods at L3 and L4 vertebral bodies. Previous fusion rods and screws extending through L5 vertebral body has been removed. Good osseous fusion at L4-L5 with a bone graft. Severe degenerative changes at L2-L3 with severe disc space narrowing and erosive changes. L3 and L4 hemilaminectomy changes. Bony defects in the left iliac crest, likely from bone graft harvesting. Pelvic floor prolapse is unchanged. IMPRESSION: 1. Small bilateral pleural effusions with associated lower lobe atelectasis. 2. New postoperative changes of sigmoid resection and a left lower quadrant end colostomy. 3. Persistent wall thickening of the descending and transverse colon. Correlate for colitis. 4. Mild wall thickening of the small bowel loops, likely from recent infection and surgery. Dictated by: Bahrgav Becerra M.D. on 03/09/2017 at 12:59 Electronically approved by: Bhargav Becerra M.D. on 03/09/2017 at 12:59 Dictated By: BHARGAV BECERRA MD 125 Transcribed By: BHAVYA on 03/09/17 1259 COPY TO: ZEB SERNA MD CT CHEST W [place] [address] Patient Name: JENNIFER ASCENCIO MR #: [id number] : 1960 Age/Sex: 56/F Req #: [id number] Adm Physician: ANETTE BRADLEY MD Ordered by: ZEB SERNA MD Report #: [id number] Location: ICU Room/Bed: ICU [facility] ___ Procedure: [id number] CT/CT CHEST W Exam Date: Exam Time: REPORT STATUS: Signed PROCEDURE: CT scan of the chest WITH intravenous contrast, using standard protocol. TECHNIQUE: The chest was scanned utilizing a multidetector helical scanner from the lung apex through the level of the adrenal glands after the IV administration of 100 cc of Isovue 370. Coronal and sagittal multiplanar reformations were obtained. COMPARISON: None. INDICATIONS: PAIN FINDINGS: Please see CT abdomen and pelvis from same date for combined dictation of Chest, Abdomen, and Pelvis. IMPRESSION: Small bilateral pleural effusions and associated compressive atelectasis of both lower lobes.. Dictated by: Bhargav Becerra M.D. on 03/09/2017 at 13:01 Electronically approved by: Bhargav Becerra M.D. on 03/09/2017 at 13:01 Dictated By: BHARGAV BECERRA MD 1301 Transcribed By: BHAVYA on 03/09/17 1301 COPY TO: ZEB SERNA MD CHEST SINGLE (PORTABLE) [place] [address] Patient Name: JENNIFER ASCENCIO MR #: [id number] : 1960 Age/Sex: 56/F Req #: [id number] Adm Physician: ANETTE BRADLEY MD Ordered by: ZEB SERNA MD Report #: [id number] Location: ICU Room/Bed: ICU [facility] Procedure: [id number] DX/CHEST SINGLE (PORTABLE) Exam Date: 03/08/17 Exam Time: 0540 REPORT STATUS: Signed Examination: Single AP view of the chest. COMPARISON: INDICATION: Intubated DISCUSSION: See impression IMPRESSION: 1. When accounting for differences in projection, no appreciable interval change in position of endotracheal tube, enteric tube, and right internal jugular central venous catheter. 2. Persistent low lung volumes with central pulmonary venous congestion and trace bilateral pleural effusions. 3. No new consolidations.. Signed by: Dr. Justin Goncalves M.D. on 03/08/2017 7:08 AM Dictated By: JUSTIN GONCALVES MD 7 Transcribed By: ALENA on 03/08/17707 COPY TO: ZEB SERNA MD CHEST SINGLE (PORTABLE) [place] [address] Patient Name: JENNIFER ASCENCIO MR #: [id number] : 1960 Age/Sex: 56/F Req #: [id number] Adm Physician: ANETTE BRADLEY MD Ordered by: ANETTE BRADLEY MD Report #: [id number] Location: ICU Room/Bed: [place] [address] Procedure: [id number] DX/CHEST SINGLE (PORTABLE) Exam Date: 03/07/17 Exam Time: 0600 REPORT STATUS: Signed EXAMINATION: CHEST SINGLE (PORTABLE) INDICATION: COMPARISON: 03/06/2017 FINDINGS: AP view TUBES and LINES: Stable endotracheal tube, nasogastric tube, and right internal jugular central line. LUNGS: Limited by low lung volumes and body habitus. Unchanged central peribronchovascular thickening/cuffing and retrocardiac opacification. PLEURA: Small bilateral pleural effusions. HEART AND MEDIASTINUM: The cardiac silhouette is mildly enlarged. BONES AND SOFT TISSUES: No acute osseous lesion. Soft tissues are unremarkable. UPPER ABDOMEN: No free air under the diaphragm. IMPRESSION: Limited as above. Unchanged central peribronchovascular thickening/cuffing and retrocardiac opacification. Underlying infiltrate cannot be excluded. Small right and moderate left pleural effusion. Signed by: Dr. Dwayne Petit MD on 03/07/2017 7:30 AM Dictated By: DWAYNE PETIT MD 9 Transcribed By: ALENA on 03/07/17729 COPY TO: ANETTE BRADLEY MD CHEST SINGLE (PORTABLE) [place] [address] Patient Name: JENNIFER ASCENCIO MR #: [id number] : 1960 Age/Sex: 56/F Req #: [id number] Adm Physician: ANETTE BRADLEY MD Ordered by: ANETTE BRADLEY MD Report #: [id number] Location: ICU Room/Bed: ICU [facility] Procedure: [id number] DX/CHEST SINGLE (PORTABLE) Exam Date: Exam Time: REPORT STATUS: Signed EXAMINATION: CHEST SINGLE (PORTABLE) INDICATION: Sepsis COMPARISON: 03/03/2017 FINDINGS: TUBES and LINES: Endotracheal, NG tube and right IJ central line catheters are stable LUNGS: Lungs are not well inflated. Persistent left lower lobe atelectasis. There is perihilar interstitial opacities, consistent with interstitial edema. PLEURA: Minimal bilateral pleural effusion. HEART AND MEDIASTINUM: The cardiomediastinal silhouette is unremarkable. BONES AND SOFT TISSUES: No acute osseous lesion. Soft tissues are unremarkable. UPPER ABDOMEN: No free air under the diaphragm. IMPRESSION: 1. Developing interstitial edema 2. Trace of pleural effusions Signed by: Dr. Erlin Kelly M.D. on 03/06/2017 6:48 AM Dictated By: ERLIN RYAN MD 7 Transcribed By: ALENA on 03/06/17647 COPY TO: ANETTE BRADLEY MD CHEST SINGLE (PORTABLE) [place] [id number] [place] [address] Patient Name: JENNIFER ASCENCIO MR #: [id number] : 1960 Age/Sex: 56/F Req #: [id number] Adm Physician: ANETTE BRADLEY MD Ordered by: ANETTE BRADLEY MD Report #: [id number] Location: ICU Room/Bed: [place] [address] Procedure: [id number] DX/CHEST SINGLE (PORTABLE) Exam Date: Exam Time: REPORT STATUS: Signed EXAMINATION: CHEST SINGLE (PORTABLE) INDICATION: Sepsis. COMPARISON: 03/03/2017 FINDINGS: TUBES and LINES: Endotracheal, NG tube and right IJ central line catheters are stable LUNGS: Lungs are not well inflated. Persistent left lower lobe atelectasis. There is no evidence of pneumonia or pulmonary edema. PLEURA: No pleural effusion or pneumothorax. HEART AND MEDIASTINUM: The cardiomediastinal silhouette is unremarkable. BONES AND SOFT TISSUES: No acute osseous lesion. Soft tissues are unremarkable. UPPER ABDOMEN: No free air under the diaphragm. IMPRESSION: 1. No acute thoracic abnormality. 2. Stable chest. Signed by: Dr. Erlin Kelly M.D. on 2017 7:03 AM Dictated By: ERLIN GUSMAN MD 2 Transcribed By: ALENA on 702 COPY TO: ANETTE BRADLEY MD CHEST SINGLE (PORTABLE) [place] [address] Patient Name: JENNIFER ASCENCIO MR #: [id number] : 1960 Age/Sex: 56/F Req #: [id number] Adm Physician: Ordered by: ANETTE BRADLEY MD Report #: [id number] Location: ICU Room/Bed: ICU [facility] Procedure: [id number] DX/CHEST SINGLE (PORTABLE) Exam Date: 03/03/17 Exam Time: 0610 REPORT STATUS: Signed EXAMINATION: CHEST SINGLE (PORTABLE) INDICATION: Tube placement COMPARISON: 03/02/2017 FINDINGS: AP view TUBES and LINES : Interval placement of endotracheal, NG tube and right IJ central line catheter. The NG tube tip appears within the left upper quadrant. Advancement is recommended. LUNGS: Lungs are not well inflated. There are bibasilar atelectasis. There is no evidence of pneumonia or pulmonary edema. PLEURA : No pleural effusion or pneumothorax. HEART AND MEDIASTINUM: The cardiomediastinal silhouette is unremarkable. BONES AND SOFT TISSUES: No acute osseous lesion. Anterior cervical fusion plate and surgical clips are visualized. Right supraclavicular surgical clips. UPPER ABDOMEN: No free air under the diaphragm. IMPRESSION: No acute intrathoracic abnormality. Tubes and lines are in good position. NG tube can be advanced Signed by: Dr. Erlin Kelly M.D. on 03/03/2017 7:08 AM Dictated By: ERLIN GUSMAN MD 07 COPY TO: ANETTE BRADLEY MD CHEST SINGLE (PORTABLE) [place] [address] Patient Name: JENNIFER ASCENCIO MR #: [id number] : 1960 Age/Sex: 56/F Req #: [id number] Adm Physician: Ordered by: LUIS MANUEL SU ANODIC TREATER Report #: [id number] Location: ER Room/Bed: Procedure: [id number] DX/CHEST SINGLE (PORTABLE) Exam Date: Exam Time: REPORT STATUS: Signed EXAMINATION: CHEST SINGLE ( PORTABLE) INDICATION: Abdominal pain COMPARISON: None FINDINGS: AP view TUBES and LINES: None. LUNGS: Lungs are not well inflated. Lungs are clear. There is no evidence of pneumonia or pulmonary edema. PLEURA: No pleural effusion or pneumothorax. HEART AND MEDIASTINUM: The cardiomediastinal silhouette is unremarkable. BONES AND SOFT TISSUES: No acute osseous lesion. Anterior cervical fusion plate. Right supraclavicular surgical clips. UPPER ABDOMEN: No free air under the diaphragm. IMPRESSION: Hypoinflated lungs. No acute thoracic abnormality. Signed by: Dr. Bhargav Becerra M.D. on 03/02/2017 5:58 PM Dictated By: BHARGAV BECERRA MD 57 COPY TO: LUIS MANUEL SU ANODIC TREATER CT ABDOMEN/PELVIS W [place] [address] Patient Name: JENNIFER ASCENCIO MR #: [id number] : 1960 Age/Sex: 56/F Req #: [id number] Adm Physician: Ordered by: LUIS MANUEL SU ANODIC TREATER Report #: [id number] Location: ER Room/Bed: Procedure: [id number] CT/CT ABDOMEN/PELVIS W Exam Date: Exam Time: REPORT STATUS: Signed EXAM: CT Abdomen and Pelvis WITH contrast INDICATION: S r/o divertic sbo appy etc COMPARISON: None. TECHNIQUE: Abdomen and pelvis were scanned utilizing a multidetector helical scanner from the lung base to the pubic symphysis after administration of IV contrast. Coronal and sagittal reformations were obtained. Routine protocol was performed. Scan was performed when during portal venous phase. IV CONTRAST: 100 mL of Isovue 370 ORAL CONTRAST: Gastrografin COMPLICATIONS: None RADIATION DOSE: Total DLP: 753.7 mGy*cm Estimated effective dose: (DLP x 0.015 x size factor) mSv CTDIvol has been reviewed. It is below the limits set by the Radiation Protocol Committee (RPC). FINDINGS: LINES and TUBES: None. LOWER THORAX: Unremarkable HEPATOBILIARY: 0.4 cm too small to characterize hypodensity in segment 4A of the liver (series 2 image 12). No biliary ductal dilation. GALLBLADDER: No radio-opaque stones or sludge. No wall thickening. Gallbladder is distended measuring at least 9.8 cm in length. SPLEEN: No splenomegaly. PANCREAS: No focal masses or ductal dilatation. ADRENALS: No adrenal nodules KIDNEYS/URETERS: Kidneys enhance symmetrically. No hydronephrosis. No cystic or solid mass lesions. No stones. GI TRACT: Majority of the inflammatory changes appears to be centered around the sigmoid colon. However, there are inflammatory changes throughout the abdomen and pelvis. Appendix is partially visualized with appendicoliths but is not distended or have wall thickening. Ascending colon is distended measuring 7.3 cm and transverse colon measures 6.2 cm. There is however no wall thickening or surrounding inflammatory changes. There are inflammatory changes in the left paracolic gutter along the descending colon extending to the sigmoid colon. Remaining small bowel is decompressed. PELVIC ORGANS/BLADDER: Unremarkable. LYMPH NODES: No lymphadenopathy. VESSELS: Unremarkable. PERITONEUM / RETROPERITONEUM: Mild free fluid around the liver, spleen, and the deep pelvis. Scattered free air. BONES: Posterior fusion with transpedicular screws and interconnecting rods at L3 and L4 vertebral bodies. Previous fusion rods and screws extending through L5 vertebral body has been removed. Good osseous fusion at L4-L5 with bone graft. Severe degenerative changes at L2-L3 with severe disc space narrowing and erosive changes. L3 and L4 hemilaminectomy changes. Bony defect in the left iliac crest, likely from bone graft harvesting. SOFT TISSUES: Pelvic floor prolapse. IMPRESSION: 1. Free air free fluid in the abdomen and pelvis. Majority of inflammatory changes is centered around the sigmoid colon, likely representing perforated diverticulitis. 2. Appendix is partially visualized without definite evidence of appendicitis. 3. Distended ascending and transverse colon, likely related to ileus. 4. Gallbladder hydrops without definite stones. 5. Pelvic floor prolapse. Results were discussed with Luis Manuel Su ANODIC TREATER by Dr. Becerra on 03/02/2017 at 6:15 PM. Signed by: Dr. Bhargav Becerra M.D. on 03/02/2017 6:17 PM Dictated By: BHARGAV BECERRA MD 16 Transcribed By: ALENA on 03/02/171816 COPY TO: LUIS MANUEL SU NP
--- OUTSIDE RECORDS SUMMARY | 2017-03-27 20:29 | XMS REPORT | Clinical Summary ---
Author Author [facility] Organization [facility] Address Unknown Phone Unavailable Care Team Providers Care Veterinary Technician Name Role Phone Tayler Parekh MD PCP Allergies Active Allergy Reactions Severity Noted Date Comments Methadone Other (See Comments) 04/16/2016 Seizure / myoclonus Topiramate Other (See Comments) 07/17/2016 Do not remember Current Medications Prescription Sig. Disp. Refills Start End Date Status Date levothyroxine (SYNTHROID, TAKE 1 TABLET ONCE A DAY 4 02/24/19 Active LEVOXYL) 100 mcg tablet ORALLY 17 atenolol (TENORMIN) 25 MG Take 25 mg by mouth 0 03/11/19 Active tablet daily. 17 atorvastatin (LIPITOR) 20 Take 20 mg by mouth 0 01/06/20 Active MG tablet daily. 16 baclofen (LIORESAL) 10 MG Take 10 mg by mouth 2 1 02/28/19 Active tablet (two) times a day. 17 clonAZEPAM (KlonoPIN) 0.5 Take 0.5 mg by mouth 2 1 03/11/19 Active MG tablet (two) times a day. 17 dicyclomine (BENTYL) 10 Take 10 mg by mouth 2 2 03/17/19 Active MG capsule (two) times a day. 17 hydromorPHONE (DILAUDID) TAKE 1 TABLET BY MOUTH 0 02/28/19 Active 4 MG tablet EVERY 6 HOURS NEEDED 17 FOR PAIN. MAX 4 TABS A DAY. DULoxetine (CYMBALTA) 60 Take 120 mg by mouth 3 03/17/19 Active MG capsule nightly. 17 pantoprazole (PROTONIX) TAKE 1 TABLET BY MOUTH 2 03/25/19 Active 40 MG EC tablet 1/2 AN HOUR BEFORE 17 BREAKFAST EVERY DAY nabumetone (RELAFEN) 750 Take 750 mg by mouth 2 1 03/11/19 Active MG tablet (two) times a day. 17 ondansetron (ZOFRAN) 4 MG Take 4 mg by mouth 4 0 03/19/19 Active tablet (four) times a day. 17 zolpidem (AMBIEN) 10 mg Take 10 mg by mouth 0 02/17/19 Active tablet nightly. 17 triamterene-hydrochloroth Take 1 tablet by mouth 2 03/03/19 Active iazid (MAXZIDE) 75-50 mg daily. 17 per tablet TiZANidine (ZANAFLEX) 4 04/01/19 Active MG capsule 17 nebivolol (BYSTOLIC) 10 Take 10 mg by mouth 2 Active MG tablet (two) times a day. fexofenadine (DEMETRICE) Take 180 mg by mouth Active 180 MG tablet daily. busPIRone (BUSPAR) 10 MG Take 10 mg by mouth Active tablet nightly. aspirin (ECOTRIN) 81 MG Take 81 mg by mouth Active enteric coated tablet daily. ascorbic acid, vitamin C, Take 1,000 mg by mouth 2 Active (vitamin C) 1000 MG (two) times a day. tablet cholecalciferol, vitamin Take 2,000 Units by mouth Active D3, (VITAMIN D3) 2,000 daily. unit capsule capsule krill oil 500 mg capsule Take 1 tablet by mouth Active daily. coenzyme Q10 200 mg Take 200 mg by mouth. Active capsule Takes 300mg. ECHINACEA HERB ORAL Take 1 tablet by mouth Active daily. GOLDENSEAL/ECHINACEA Take 1 tablet by mouth Active PURPUREA daily. (ECHINACEA-MCKEON SEAL ORAL) magnesium oxide (MAG-OX) Take 400 mg by mouth Active 400 mg tablet daily. MILK THISTLE ORAL Take 1 tablet by mouth Active daily. TURMERIC-TURMERIC ROOT Take 1 capsule by mouth. Active EXTRACT ORAL With curcumin magnesium chloride 64 mg Take 64 mg by mouth as Active tablet,delayed release needed. (DR/EC) DR tablet metoprolol tartrate Take 50 mg by mouth 2 2 01/02/20 Active (LOPRESSOR) 50 mg tablet (two) times a day. 17 DULoxetine (CYMBALTA) 30 Take 90 mg by mouth once 3 01/07/20 Active MG capsule daily. 17 famotidine (PEPCID) 40 MG Take 40 mg by mouth once 6 01/06/20 Active tablet daily. 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 H/O thoracic outlet syndrome Dental crowns present Teeth missing due to caries MRSA carrier Encounters Date Type Specialty Care Team Description 01/27/2017 Office Visit Gynecologic Oncology Archana Bravo MD History of vulvar dysplasia (Primary Dx) 07/28/2016 Office Visit Gynecologic Oncology Archana Bravo MD Vulvar dysplasia (Primary Dx) 07/20/2016 Hospital General Surgery Archana Bravo MD Dysplasia of vulva Encounter 07/20/2016 Telephone Gynecologic Oncology Sally Wayne RN 07/20/2016 Procedure Pass General Surgery 07/20/2016 Surgery General Surgery Archana Bravo MD right wide local incision, partial VULVECTOMY 07/17/2016 Anesthesia General Surgery Asha Mendez FNP Event 07/02/2016 Telephone Gynecologic Oncology Archana Bravo MD 06/23/2016 Telephone Gynecologic Oncology Archana Bravo MD 04/16/2016 Office Visit Gynecologic Oncology Archana Bravo MD Vulvar dysplasia (Primary Dx);ASCUS of cervix with negative high risk HPV 04/09/2016 Abstract Gynecologic Oncology Sally Wayne RN after 03/26/2016 Family History Medical History Relation Name Comments Cancer Father bladder cancer Skin cancer Mother Relation Name Status Comments Father Mother Social History Tobacco Use Types Packs/Day Years Used Date Former Smoker Cigarettes 0.5 5 Quit: 1984 Smokeless Tobacco: Never Used Comments: quit 25 years ago. Alcohol Use Drinks/Week oz/Week Comments Yes 2 Shots of 1.2 daily liquor Sex Assigned at Date Recorded Not on file Last Filed Vital Signs Vital Sign Reading Time Taken Blood Pressure 135/72 01/27/2017 11:48 AM HYDRAULIC REPAIRER Pulse 76 01/27/2017 11:48 AM HYDRAULIC REPAIRER Temperature 36.2 C (97.2 F) 07/20/2016 12:45 PM CDT Respiratory Rate 14 07/20/2016 12:30 PM CDT Oxygen Saturation 95% 07/20/2016 12:30 PM CDT Inhaled Oxygen - - Concentration Weight 87.9 kg (193 lb 12.6 oz) 01/27/2017 11:48 AM HYDRAULIC REPAIRER Height 165 cm (5' 4.96") 01/27/2017 11:48 AM HYDRAULIC REPAIRER Body Mass Index 32.29 01/27/2017 11:48 AM HYDRAULIC REPAIRER Plan of Treatment Health Maintenance Due Date Last Done Comments PAP SMEAR 10/02/1980 COLONOSCOPY 10/02/2009 MAMMOGRAM 10/02/2009 INFLUENZA VACCINE 09/15/2016 Procedures Procedure Name Priority Date/Time Associated Diagnosis Comments ANESTHESIA INTUBATION Routine 07/20/2016 11:02 AM CDT Procedure Note - Jose M Black, MAGNETIC TESTER - 07/20/2016 11:01 AM CDT Airway Date/Time: 07/20/2016 10:52 AM Performed by: JOSE M BLACK Authorized by: JOSE M BLACK Location: OR Preoxygena gm with 100% O2: Yes C-spine Precaution s Maintained Throughout : Yes Mask Ventilatio n: Easy mask Final Airway Type: Supraglott ic airway Final LMA: Classic LMA Size: 4 Number of Attempts at Approach: 1 after 03/26/2016 Results * Surgical pathology request (07/20/2016 11:41 AM) Only the most recent of 2 results within the time period is included. Component Value Ref Range Surgical pathology report See link below for PDF Lab Report Specimen Performing Laboratory Tissue [facility] DEPARTMENT OF PATHOLOGY AND GENOMIC MEDICINE [address] [place] [id number] * POC glucose (07/20/2016 10:05 AM) Component Value Ref Range POC glucose 98 65 - 99 mg/dL Comment: Meter ID: [id number] Pouch Maker: Golden Burtoneen Specimen Performing Laboratory [facility] OF PATHOLOGY AND GENOMIC MEDICINE [address] [place] [address] * ECG 12 lead (07/17/2016 4:00 PM) Component Value Ref Range Ventricular rate 72 Atrial rate 72 NC interval 118 QRSD interval 88 QT interval 388 QTC interval 424 P axis 1 39 QRS axis 1 -4 T wave axis 8 EKG impression Normal sinus rhythm-Anterior infarct , age undetermined-Abnormal ECG-No previous ECGs available- Specimen Performing Laboratory [facility] [address] [place] [address] * Estimated GFR (07/17/2016 3:33 PM) Component Value Ref Range GFR Non Af Amer 51 (A) mL/min/1.73 m2 GFR Af Amer 62 mL/min/1.73 m2 Comment: Chronic kidney disease: <60 mL/min/1.73m2 Kidney failure: <15 mL/min/1.73m2 The estimated GFR is calculated from the IDMS-traceable Modification of Diet in Renal Disease Equation. The accuracy of the calculation is poor when the creatinine is normal. Calculated values >90 mL/min/1.73m2 are not reported. This equation has not been validated in children (<18 years), women, the elderly (>70 years), or ethnic groups other than Caucasians and Americans. Specimen Performing Laboratory Plasma specimen [facility] DEPARTMENT OF PATHOLOGY AND [facility] MED[facility]INE [address] [place] [address] * CBC with platelet and differential (07/17/2016 3:33 PM) Component Value Ref Range WBC 7.4 4.5 - 11.0 k/uL RBC 5.11 4.20 - 5.50 m/uL HGB 16.2 (H) 12.0 - 16.0 g/dL HCT 45.2 37.0 - 47.0 % MCV 88.5 82.0 - 100.0 fL MCH 31.7 27.0 - 34.0 pg MCHC 35.8 31.0 - 37.0 g/dL RDW - SD 38.6 37.0 - 55.0 fL MPV 9.9 6.9 - 11.0 fL Platelet count 291 150 - 400 K/uL Nucleated RBC 0.00 /100 WBC Neutrophils 60.0 39.0 - 69.0 % Lymphocytes 30.2 25.0 - 45.0 % Monocytes 5.7 0.0 - 10.0 % Eosinophils 3.2 0.0 - 5.0 % Basophils 0.4 0.0 - 1.0 % Immature granulocytes 0.5 0.0 - 1.0 % Specimen Performing Laboratory Blood [facility] OF PATHOLOGY AND [address] [address] * Basic metabolic panel (07/17/2016 3:33 PM) Component Value Ref Range Sodium 147 135 - 148 mEq/L Potassium 4.6 3.5 - 5.0 mEq/L Chloride 100 98 - 112 mEq/L CO2 31 24 - 31 mEq/L Anion gap 16 (H) 7 - 15 mEq/L Comment: Starting from May , anion gap calculation no longer incorporates potassium. Please note the change. BUN 12 6 - 20 mg/dL Creatinine 1.1 (H) 0.5 - 0.9 mg/dL Glucose 111 (H) 65 - 99 mg/dL Calcium 10.1 8.3 - 10.2 mg/dL Specimen Performing Laboratory Plasma specimen [facility] DEPARTMENT OF PATHOLOGY AND GENOMIC MEDICINE [address] [place] [address] * US Pelvic External Study (04/09/2016) * Pap IG, HSV, rfxHPV ASCU (04/09/2016) Specimen Performing Laboratory Swab after 03/26/2016 Insurance Payer Benefit Subscriber ID Type Phone Address Plan / Group MEDICARE MEDICARE [id number] Medicare [place], [place] PART A AND B
--- OUTSIDE RECORDS SUMMARY | 2017-03-27 20:29 | XMS REPORT | Continuity of Care Document ---
Author Author [facility] Organization 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 No 03/03/17 6:14am If yes, is advance directive on file with [facility]? No 03/03/17 6:14am If not on file with [facility] will patient provide a copy? No 03/03/17 6:14am Do you have a Directive to Physician? No 03/02/17 3:04pm Do you have a Medical Power of Paraprofessional Education Assistant? No 03/02/17 3:04pm Do you have an out of hospital Do Not Resuscitate Order? No 03/02/17 3:04pm Do you have any special needs we should be aware of? No 03/02/17 3:04pm Do you have a support person here with you today? Yes 03/02/17 3:04pm Did patient receive Notice of Privacy Practices? Yes 03/02/17 3:04pm Did patient receive patient rights and responsibilities? Yes 03/02/17 3:04pm Problems Medical Problem Onset Date Status Diverticulitis of colon with perforation Unknown Medications Current Home Medications Medication Dose Units Route Directions Days Qty Instructions Start Date Aspirin (Aspirin Ec) 81 Mg Tablet.dr 81 Mg Oral Daily 30 Tab Atenolol 25 Mg Tablet 25 Mg Oral Daily Atorvastatin Calcium 20 Mg Tablet 20 Mg Oral Daily Baclofen 10 Mg Tablet 10 Mg Oral Three Times A Day 90 Tab Clonazepam 1 Mg Tab.rapdis 0.5 Mg Oral Bedtime Doxepin Hcl 25 Mg Capsule 50 Mg Oral Bedtime 30 Cap Esomeprazole Magnesium (Nexium) 40 Mg Capsule.dr 40 Mg Oral Daily PROTONIX THERAPEUTIC SUBSTITUTE FOR NEXIUM PER [facility] Levothyroxine Sodium 100 Mcg Tablet 100 Mcg Oral Daily Nabumetone 750 Mg Tablet 750 Mg Oral Twice A Day Triamterene/Hydrochlorothiazid (Triamterene-Hctz 75-50 Mg Tab) 1 Each Tablet Oral Daily Venlafaxine Hcl (Effexor Xr) 150 Mg Cap.er.24h 150 Mg Oral Daily Zolpidem Tartrate (Ambien) 10 Mg Tablet 10 Mg Oral Bedtime Past Home Medications Medication Directions Ordered Status Dicyclomine Hcl 10 Mg Capsule, 10 Mg Oral Twice A Day Discontinued Oxycodone Hcl (Oxycontin) 10 Mg Tab.er.12h, 10 Mg Oral Four Times Daily Discontinued Social History Social History Problem Response Recorded Date/Time Onset Date Status Hx Psychiatric Problems No 03/03/2017 6:14am Not Applicable Not Applicable Hx Eating Disorder No 03/03/2017 6:14am Not Applicable Not Applicable Hx Substance Use Disorder No 03/03/2017 6:14am Not Applicable Not Applicable Hx Depression Yes 03/03/2017 6:14am Not Applicable Not Applicable Hx Alcohol Use Yes 03/03/2017 6:14am Not Applicable Not Applicable Hx Physical Abuse No 03/03/2017 6:14am Not Applicable Not Applicable Hospital Discharge Instructions No hospital discharge instruction information available. Plan of Care Discharge Date 03/21/17 1:55pm Disposition HOME, SELF-CARE Instructions/Education Provided Soft Diet Diverticulitis Post Operative Pain Prescriptions See Medication Section Additional Instructions/Education REGULAR DIET OOB NORCO F/U 10 DAYS RETURN TO ER IF ANY TEMPERAURE SHOULD PERSIST Functional Status Query Response Date Recorded FUNCTIONAL STATUS . March 11, 2017 3:00pm Ambulation Ability Total Assistance March 03, 2017 6:10am Toileting Ability Minimum Assistance March 21, 2017 1:49pm Allergies, Adverse Reactions, Alerts Allergen Type Severity Reaction Status Last Updated Methadone Allergy Unknown Active 03/02/17 Immunizations No immunization information available. Vital Signs Acute Vital Signs Vital Response Date/Time Temperature (Fahrenheit) 100.2 degrees F (97.6 - 99.5) 03/21/2017 12:05pm Pulse Pulse Rate (adult) 99 bpm (60 - 90) 03/21/2017 1:16pm Respiratory Rate 18 bpm (12 - 24) 03/21/2017 1:16pm Blood Pressure 117/57 mm Hg 03/21/2017 12:05pm Height 5 ft 5 in 03/02/2017 3:10pm Weight 242.56 lb 03/17/2017 2:42am Body Mass Index 40.4 kg/m^2 03/17/2017 2:42am Results Laboratory Results Test Name Result Units Flags Reference Collection Date/Time Result Date/ Time Comments White Blood Count 6.34 x10e3/uL 4.8-10.8 03/21/2017 5:30am 03/21/2017 6 :15am Red Blood Count 2.68 x10e6/uL L 3.6-5.1 03/21/2017 5:30am 03/21/2017 6: 15am Hemoglobin 8.3 g/dL L 12.0-16.0 03/21/2017 5:30am 03/21/2017 6:15am Hematocrit 25.5 % L 34.2-44.1 03/21/2017 5:30am 03/21/2017 6:15am Mean Corpuscular Volume 95.1 fL 81-99 03/21/2017 5:30am 03/21/2017 6: 15am Mean Corpuscular Hemoglobin 31.0 pg 28-32 03/21/2017 5:03/21/2017 6:15am Mean Corpuscular Hemoglobin Concent 32.5 g/dL 31-35 03/21/2017 5:03/21/2017 6:15am Red Cell Distribution Width 13.4 % 11.7-14.4 03/21/2017 5:2017 6:15am Platelet Count 607 x10e3/uL H 140-360 03/21/2017 5:03/21/2017 6: 15am Neutrophils (%) (Auto) 63.5 % 38.7-80.0 03/21/2017 5:03/21/2017 6: 15am Lymphocytes (%) (Auto) 20.5 % 18.0-39.1 03/21/2017 5:03/21/2017 6: 15am Monocytes (%) (Auto) 9.1 % 4.4-11.3 03/21/2017 5:03/21/2017 6: 15am Eosinophils (%) (Auto) 5.0 % 0.0-6.0 03/21/2017 5:03/21/2017 6: 15am Basophils (%) (Auto) 0.6 % 0.0-1.0 03/21/2017 5:03/21/2017 6:15am IM GRANULOCYTES % 1.3 % H 0.0-1.0 03/21/2017 5:03/21/2017 6:15am Neutrophils # (Auto) 4.0 2.1-6.9 03/21/2017 5:03/21/2017 6:15am Lymphocytes # (Auto) 1.3 1.0-3.2 03/21/2017 5:03/21/2017 6:15am Monocytes # (Auto) 0.6 0.2-0.8 03/21/2017 5:03/21/2017 6:15am Eosinophils # (Auto) 0.3 0.0-0.4 03/21/2017 5:03/21/2017 6:15am Basophils # (Auto) 0.0 0.0-0.1 03/21/2017 5:03/21/2017 6:15am Absolute Immature Granulocyte (auto 0.08 x10e3/uL 0-0.1 03/21/2017 5: 30am 03/21/2017 6:15am Differential Total Cells Counted 100 03/13/2017 5:05am 03/13/2017 8 :54am Pathology Consult Specimen SEE COMMENT 03/04/2017 5:18am 2017 4:14pm CHART CBC AND PERIPHEREAL SMEAR REVIEWED AGREE WITH AUTOMATED AND MANUAL DIFFERENTIAL GRANULOCYTODID WITH MARKED LEFT SHIFT NOTED, NO BLASTS SEEN NORMOCYTIC NORMOCHROMIC ERYTHROCYTES PLATELETS NORMAL IN NUMBER AND MORPHOLOGY CONSISTENT WITH HISTORY OF PERITONITIS FROM PEFORATED BOWEL SEE REPORT [id number] Neutrophils % (Manual) 76 % H 40-74 03/13/2017 5:05am 03/13/2017 8:54am Band Neutrophils % 10 % 03/13/2017 5:05am 03/13/2017 8:54am Lymphocytes % (Manual) 13 % L 19-48 03/13/2017 5:05am 03/13/2017 8:54am Monocytes % (Manual) 2 % L 3.4-9.0 03/11/2017 5:30am 03/11/2017 8:15am Eosinophils % (Manual) 1 % 0-7 03/13/2017 5:05am 03/13/2017 8:54am Metamyelocytes % 2 % H 0-0 03/10/2017 6:00am 03/10/2017 9:19am Myelocytes % 1 % H 0-0 03/10/2017 6:00am 03/10/2017 9:19am Reactive Lymphocytes 1 03/11/2017 5:30am 03/11/2017 8:15am Blast Cells % 2 03/03/2017 4:30am 03/03/2017 8:31am Smudge Cells FEW 03/05/2017 5:42am 03/05/2017 7:44am Platelet Estimate SLIGHTLY INCREASED 03/13/2017 5:05am 03/13/2017 8 :54am Platelet Morphology Comment NORMAL 03/13/2017 5:05am 03/13/2017 8: 54am Hypochromasia SLIGHT 03/11/2017 5:30am 03/11/2017 8:15am Poikilocytosis SLIGHT 03/11/2017 5:30am 03/11/2017 8:15am Anisocytosis SLIGHT 03/11/2017 5:30am 03/11/2017 8:15am Tear Drop Cells FEW 03/05/2017 5:42am 03/05/2017 7:44am [place] Bodies FEW 03/10/2017 6:00am 03/10/2017 9:19am Toxic Granulation SLIGHT 03/06/2017 5:24am 03/06/2017 8:30am [place] Bodies FEW 03/05/2017 5:42am 03/05/2017 7:44am Red Cell Morphology Comment NORMAL 03/13/2017 5:05am 03/13/2017 8: 54am Prothrombin Time 18.5 seconds H 11.9-14.5 03/04/2017 5:18am 03/04/2017 6 :18am Prothromb Time International Ratio 1.46 03/04/2017 5:18am 2017 6:18am Oral Anticoagulant Therapy INR Values: 1. Low Intensity Therapy 1.5 - 2.0 2. Moderate Intensity Therapy 2.0 - 3.0 3. High Intensity Therapy(1) 2.5 - 3.5 4. High Intensity Therapy(2) 3.0 - 4.0 5. Panic Value INR > 5.0 Activated Partial Thromboplast Time 40.7 seconds H 23.8-35.5 03/03/2017 4 :35pm 03/03/2017 5:02pm Urine Color YELLOW YELLOW 03/16/2017 9:50am 03/16/2017 10:24am Urine Clarity CLEAR CLEAR 03/16/2017 9:50am 03/16/2017 10:24am Urine Specific [place] 1.015 1.010-1.025 03/16/2017 9:50am 2017 10:24am Urine pH 6 5 - 7 03/16/2017 9:50am 03/16/2017 10:24am Urine Leukocyte Esterase NEGATIVE NEGATIVE 03/16/2017 9:50am 2017 10:24am Urine Nitrite NEGATIVE NEGATIVE 03/16/2017 9:50am 03/16/2017 10:24am Urine Protein NEGATIVE NEGATIVE 03/16/2017 9:50am 03/16/2017 10:24am Urine Glucose (UA) NEGATIVE NEGATIVE 03/16/2017 9:50am 03/16/2017 10: 24am Urine Ketones NEGATIVE NEGATIVE 03/16/2017 9:50am 03/16/2017 10:24am Urine Urobilinogen 0.2 mg/dL 0.2 - 1 03/16/2017 9:50am 03/16/2017 10: 24am Urine Bilirubin NEGATIVE NEGATIVE 03/16/2017 9:50am 03/16/2017 10: 24am Urine Blood TRACE H NEGATIVE 03/16/2017 9:50am 03/16/2017 10:24am Urine WBC NONE /HPF 0-5 03/16/2017 9:50am 03/16/2017 10:24am Urine RBC NONE /HPF 0-5 03/16/2017 9:50am 03/16/2017 10:24am Urine Bacteria NONE /HPF NONE 03/16/2017 9:50am 03/16/2017 10:24am Urine Epithelial Cells RARE /LPF NONE 03/16/2017 9:50am 03/16/2017 10: 24am Urine Transitional Epithelial Cells RARE H NONE 03/03/2017 10:55am 11:51am Urine Hyaline Casts >15 H 0-1 03/03/2017 10:55am 03/03/2017 11:51am Urine Mucus RARE RARE 03/16/2017 9:50am 03/16/2017 10:24am Sodium Level 141 mmol/L 136-145 03/21/2017 5:30am 03/21/2017 6:44am Potassium Level 2.9 mmol/L *L 3.5-5.1 03/21/2017 5:30am 03/21/2017 6: 44am Results called to BERHANE MARIE at 0641 on 03/21/17 by Brandy Bonilla. RB OK. Chloride Level 108 mmol/L H 98-107 03/21/2017 5:30am 03/21/2017 6:44am Influenza Virus Types A,B Antigen NEGATIVE NEGATIVE 03/10/2017 4:19pm 03/10/2017 4:59pm Carbon Dioxide Level 26 mmol/L 22-03/21/2017 5:30am 03/21/2017 6: 44am Anion Gap 9.9 mmol/L 8-16 03/21/2017 5:30am 03/21/2017 6:44am Blood Urea Nitrogen 5 mg/dL L 7-03/21/2017 5:30am 03/21/2017 6:44am Creatinine 0.58 mg/dL 0.57-1.11 03/21/2017 5:30am 03/21/2017 6:44am BUN/Creatinine Ratio 9 6-25 03/21/2017 5:30am 03/21/2017 6:44am Estimat Glomerular Filtration Rate > 60 ML/MIN 60- 03/21/2017 5:30am 6:44am Ranges were taken from the National Kidney Disease Education Program and the National Kidney Foundation literature. Reference ranges: 60 or greater: Normal 16-59 (for 3 consecutive months): Chronic kidney disease 15 or less: Kidney failure Glucose Level 97 mg/dL 74-118 03/21/2017 5:30am 03/21/2017 6:44am Calcium Level 8.2 mg/dL L 8.4-10.2 03/21/2017 5:30am 03/21/2017 6:44am Bedside Glucose 142 mg/dL H 70-120 03/18/2017 6:43am 03/18/2017 6:51am Meter ID: [id number] Lactic Acid Level 14.1 MG/DL 4.5-19.8 03/15/2017 5:49am 03/15/2017 6: 48am Magnesium Level 1.8 MG/DL 1.3-2.1 03/12/2017 5:15am 03/12/2017 6:05am Total Bilirubin 0.4 mg/dL 0.2-1.2 03/15/2017 5:49am 03/15/2017 7:00am Aspartate Amino Transf (AST/SGOT) 43 IU/L H 5-34 03/15/2017 5:49am 03/15 7:00am Alanine Aminotransferase (ALT/SGPT) 27 IU/L 0-55 03/15/2017 5:49am 7:00am Total Protein 5.4 g/dL L 6.5-8.1 03/15/2017 5:49am 03/15/2017 7:00am Albumin 1.7 g/dL L 3.5-5.0 03/15/2017 5:49am 03/15/2017 7:00am Globulin 3.7 g/dL H 2.3-3.5 03/15/2017 5:49am 03/15/2017 7:00am Albumin/Globulin Ratio 0.5 L 0.8-2.0 03/15/2017 5:49am 03/15/2017 7: 00am Alkaline Phosphatase 93 IU/L 40-150 03/15/2017 5:49am 03/15/2017 7: 00am Creatine Kinase 66 IU/L 29-168 03/02/2017 3:45pm 03/02/2017 4:46pm Creatine Kinase MB 1.70 ng/mL 0.00-5.00 03/02/2017 3:45pm 03/02/2017 4: 52pm Troponin I 0.080 ng/mL 0-0.300 03/02/2017 10:40pm 03/02/2017 11:10pm Lipase 11 U/L 8-78 03/02/2017 3:45pm 03/02/2017 4:46pm Thyroid Stimulating Hormone (TSH) 4.156 uIU/mL 0.350-4.940 03/17/2017 5: 55am 03/17/2017 7:47am Vancomycin Level Trough 10.6 ug/mL *H 5.0-10.0 03/09/2017 12:42am 2017 1:00am Results called to MARLEN DURAN RN at 0100 on 03/09/17 by Bernard Almeida. RB OK. Arterial Blood pH 7.48 H 7.31-7.41 03/11/2017 8:11am 03/11/2017 12: 26pm Arterial Blood Partial Pressure CO2 40 mmHg L 41-51 03/11/2017 8:11am 12:26pm Arterial Blood Partial Pressure O2 75 mmHg L 80-105 03/11/2017 8:11am 12:26pm Arterial Blood HCO3 30 mmol/L H 23-28 03/11/2017 8:11am 03/11/2017 12: 26pm Arterial Blood Base Excess 6.0 mmol/L H -2 - 3 03/11/2017 8:11am 2017 12:26pm Arterial Blood Oxygen Saturation 96.0 % 95-98 03/11/2017 8:11am 2017 12:26pm Microbiology Results Procedure Source Organism/Result Collection Date/Time Result Date/Time Result Status Catheter Tip Culture Catheter Tip, Other STAPHYLOCOCCUS SP COAG NEG 2017 3:37pm 03/13/2017 10:10am Final STAPHYLOCOCCUS SP COAG NEG#2 03/10/2017 3:37pm 03/13/2017 10:10am Final Blood Culture Blood NO GROWTH AFTER 5 DAYS, FINAL REPORT 03/12/2017 11: 25am 03/17/2017 11:31am Final Procedures Procedure Status Date Provider(s) Exploratory laparotomy Completed 03/03/17 ANETTE BRADLEY MD Computed tomography of abdomen and pelvis with contrast Active 03/02/17 KAITLYN DONALDSON NP Computed tomography of chest with contrast Active 03/09/17 ZEB SERNA MD Computed tomography of abdomen and pelvis with contrast Active 03/09/17 ZEB SERNA MD Ultrasound guidance for vascular access Active 03/10/17 ANETTE BRADLEY MD Computed tomography of chest with contrast Active 03/12/17 VIRGIL WALLER MD X-ray of chest, two views Active 03/15/17 HUGO BRADLEY MD Encounters Encounter Location Arrival/Admit Date Discharge/Depart Date Attending Provider Discharged Inpatient [facility] 03/03/17 11:22am 1:55pm ANETTE BRADLEY MD Registered Clinic [facility] 08/11/16 1:15pm AMADO ZHOU MD
[2017-03-27 21:27] LABS: BASOPHILS % 0.5 % (0.0-1.0); EOSINOPHILS # (AUTO) 0.1 (0.0-0.4); EOSINOPHILS % 1.3 % (0.0-6.0); HEMATOCRIT 34.7 % (34.2-44.1); HEMOGLOBIN 11.4 g/dL (12.0-16.0); LYMPHOCYTES # (AUTO) 2.3 (1.0-3.2); LYMPHOCYTES % 26.6 % (18.0-39.1); MEAN CORPUSCULAR HEMOGLOBIN 30.4 pg (28-32); MEAN CORPUSCULAR HGB CONC 32.9 g/dL (31-35); MEAN CORPUSCULAR VOLUME 92.5 fL (81-99); MONOCYTES # (AUTO) 0.8 (0.2-0.8); MONOCYTES % 9.4 % (4.4-11.3); NEUTROPHILS # (AUTO) 5.1 (2.1-6.9); PLATELET COUNT 574 x10e3/uL (140-360); RED BLOOD COUNT 3.75 x10e6/uL (3.6-5.1); RED CELL DISTRIBUTION WIDTH 12.9 % (11.7-14.4)
[2017-03-27] MEDS ORDERED: NORCO 7.5-3251 EACH PO (21:30)
[2017-03-27] MEDS ORDERED: LISINOPRIL2.5 MG PO (21:33)
[2017-03-27 21:43] LABS: ALANINE AMINOTRANSFERASE 15 IU/L (0-55); ALBUMIN 3.1 g/dL (3.5-5.0); ALBUMIN/GLOBULIN RATIO 0.6 (0.8-2.0); ALKALINE PHOSPHATASE 62 IU/L (40-150); ANION GAP 16.1 mmol/L (8-16); BLOOD UREA NITROGEN 12 mg/dL (7-26); BUN/CREATININE RATIO 16 (6-25); CALCIUM 9.7 mg/dL (8.4-10.2); CARBON DIOXIDE 27 mmol/L (22-29); CHLORIDE 97 mmol/L (98-107); CREATININE, SERUM 0.74 mg/dL (0.57-1.11); EST GLOMERULAR FILTRATION RATE > 60 ML/MIN (60-); GLUCOSE 100 mg/dL (74-118); POTASSIUM 3.1 mmol/L (3.5-5.1); SODIUM 137 mmol/L (136-145)
[2017-03-27] MEDS ORDERED: HYDROCODONE/APAP 7.5MG-325MG 1 EA TAB PO STA (22:24)
[2017-03-27 23:36] VITALS: BP 135/45
== END 2017-03-27 23:37 | disposition home or self-care (01) ==
LOC: ER 20:25
DX: Z43.3 Encounter for attention to colostomy (principal); L89.899 Pressure ulcer of other site, unspecified stage; I10 Essential (primary) hypertension; M54.5 Low back pain; G89.29 Other chronic pain
CPT/HCPCS: 36415; 80053; 85025; 87040; 99284

== ENCOUNTER → 2017-12-20 | Outpatient (CLI) | payer MEDICARE ==
[~2017-12-20] MED LIST changes: +LISINOPRIL2.5 MG PO; +NORCO 7.5-3251 EACH PO
--- NOTE | 2017-12-20 12:46 | Diagnostic Imaging Report ---
EXAM: FL BARIUM ENEMA SINGLE CONTRAST INDICATION: Diverticulitis. COMPARISON: None available. FINDINGS/TECHNIQUE: No air contrast was administered due to patient discomfort and clinical indication of diverticulitis. BOOKKEEPER: The bowel gas pattern is non-obstructive. The rectum was cannulated and single contrast barium administration demonstrated a pouch consisting of the rectum and distal sigmoid colon. No evidence of leak or diverticulosis. The tube was subsequently removed. Subsequently cannulation of the colostomy with single contrast barium administration demonstrated opacification of normal caliber proximal and mid descending, transverse, and distal and mid ascending colon. The proximal ascending colon was not opacified as at this point as the patient could not tolerate further injection. No evidence of stricture or leak. The tube was removed. Fluoroscopy Time: 1.8 minutes Radiation dose: 135.2 mgy DAP IMPRESSION: Single contrast barium enema and colostomy injection demonstrating no evidence of leak, stricture, or diverticulosis. Signed by: Dr. Jayme Nelson MD on 12/20/2017 12:42 PM
== END ==
LOC: DX 12-06 08:03
PROVIDERS: ATTEND Surgery
DX: K57.92 Diverticulitis of intestine, part unspecified, without perforation or abscess without bleeding (principal)
CPT/HCPCS: 74280

== ENCOUNTER 2018-03-02 06:34 | Inpatient (IN) | payer MEDICARE ==
[2018-02-28 13:29] LABS: BASOPHILS % 0.4 % (0.0-1.0); EOSINOPHILS # (AUTO) 0.2 (0.0-0.4); EOSINOPHILS % 2.7 % (0.0-6.0); HEMATOCRIT 42.6 % (34.2-44.1); HEMOGLOBIN 14.6 g/dL (12.0-16.0); LYMPHOCYTES # (AUTO) 2.7 (1.0-3.2); MEAN CORPUSCULAR HEMOGLOBIN 32.4 pg (28-32); MEAN CORPUSCULAR HGB CONC 34.3 g/dL (31-35); MEAN CORPUSCULAR VOLUME 94.5 fL (81-99); MONOCYTES # (AUTO) 0.6 (0.2-0.8); MONOCYTES % 7.7 % (4.4-11.3); NEUTROPHILS # (AUTO) 3.6 (2.1-6.9); NEUTROPHILS % 50.8 % (38.7-80.0); PLATELET COUNT 255 x10e3/uL (140-360); RED BLOOD COUNT 4.51 x10e6/uL (3.6-5.1); RED CELL DISTRIBUTION WIDTH 12.4 % (11.7-14.4)
[2018-02-28 14:14] LABS: ANION GAP 13.8 mmol/L (8-16); BLOOD UREA NITROGEN 10 mg/dL (7-26); BUN/CREATININE RATIO 11 (6-25); CALCIUM 9.9 mg/dL (8.4-10.2); CARBON DIOXIDE 35 mmol/L (22-29); CHLORIDE 98 mmol/L (98-107); CREATININE, SERUM 0.93 mg/dL (0.57-1.11); EST GLOMERULAR FILTRATION RATE > 60 ML/MIN (60-); GLUCOSE 114 mg/dL (74-118); POTASSIUM 3.8 mmol/L (3.5-5.1); SODIUM 143 mmol/L (136-145)
[2018-03-02] VITALS (9 sets, daily range): BP systolic 101–117; BP diastolic 61–79
[~2018-03-02] VITALS: Ht 152.4 cm; Wt 88.7 kg
[~2018-03-02 06:34] MED LIST changes: +AMITIZA24 MCG PO; +CYMBALTA30 MG PO; +DICYCLOMINE HCL20 MG PO; +ECHINACEA80 MG PO; +FAMOTIDINE20 MG PO; +FENTANYL1 EAC1 TOP; +FEXOFENADINE H180 MG PO; +FISH OIL 1,0001 EAC2 PO; +GOLDENSEAL325 MG PO; +MAGNESIUM CITR100 GM PO; +METOPROLOL SUCC50 MG PO; +STOOL SOFTENER100 MG PO; +VIT C PO; +ZANAFLEX4 M1 PO; +ZOFRAN4 MG/5 ML PO
--- OUTSIDE RECORDS SUMMARY | 2018-03-02 06:37 | XMS REPORT | Continuity of Care Document ---
Author Author [facility] [place], [place] Interface Address Unknown Phone Unavailable Problems Problem Status Onset Date Classification Date Reported Comments Source K21.9 Active 02/19/2016 [facility] Fibromyalgia Resolved Problem 02/27/2016 [facility] HTN (<span ID="[id number]">Confirmed</span>) Resolved Problem 02/27/2016 [facility] GASTRO-ESOPHAGEAL REFLUX DISEASE WITHOUT Active [facility] HYDROPLASTY KNEE SURGERY Active [facility] [place] Medications Medication Details Route Status Patient Instructions Ordering Provider Order Date Source Baclofen PO, BID, 0 Refill(s) Active 02/24/2016 [facility] Clonazepam 10 mg, PO, BID, 0 Refill(s) Active 02/24/2016 [facility] Unknown Home Medication Refill(s) 0 Active 02/24/2016 [facility] Hydromorphone Hydrochloride 4 MG Oral Tablet [Dilaudid] 8 mg=2 tab, PO, Q4H, PRN Pain, 0 Refill(s) Active 02/24/2016 [facility] Relafen 750 mg, PO, Daily, 0 Refill(s) Active 02/24/2016 [facility] amLODIPine 10 mg oral tablet 10 mg=1 tab, PO, Daily, # 90 tab, 1 Refill(s) Active 02/24/2016 [facility] tizanidine 4 MG Oral Capsule [Zanaflex] 4 mg=1 cap, PO, Daily, # 90 cap, 0 Refill(s) Active 02/24/2016 [facility] nebivolol 10 MG Oral Tablet [Bystolic] 10 mg=1 tab, PO, Daily, # 30 tab, 0 Refill(s) Active 02/24/2016 [facility] Lactated Ringers 1,000 mL 1,000 mL, Rate: 40 ml/hr, Infuse over: 25 hr, Route: IV, Dosing Weight 93.182 kg, Total Volume: 1,000, Start date: 02/24/16 15:09:00 PARTS PRODUCT ANALYST, Duration: 30 day, Stop date: 03/25/16 15:08:00 PARTS PRODUCT ANALYST Inactive 02/24/2016 [facility] Allergies, Adverse Reactions, Alerts Substance Category Reaction Severity Reaction type Status Date Reported Comments Source Topamax Assertion Drug allergy Active [facility] Immunizations Immunization Date Given Site Status Last Updated Comments Source Results Order Name Results Value Reference Range Date Interpretation Comments Source IMMUNOLOGY H pylori Urease Negative (02/24/16 4:25 PM) Negative 02/24/2016 [facility] Vital Signs Vital Sign Value Date Comments Source Weight 93.182 02/24/2016 [facility] Height 165.1 cm 02/24/2016 [facility] BMI Calculated 34.19 02/24/2016 [facility] Encounters Location Location Details Encounter Type Encounter Number Reason For Visit Attending Provider ADM Date DC Date Status Source TH [id number] HYDROPLASTY KNEE SURGERY SANGITA JO 06/14/2012 Active [facility] [id number] German Nugent 02/24/2016 02/24/2016 [facility] Procedures Procedure Code Date Perfomer Comments Source Tilt table test<sup>1</sup> [id number] 02/09/2013 NEGATIVE [facility]
--- OUTSIDE RECORDS SUMMARY | 2018-03-02 06:37 | XMS REPORT | Summary of Care ---
Author Author [facility] Organization [facility] Address Unknown Phone Unavailable Encounter CARMELO Mays(ASHLEY) [id number] Date(s): 02/24/16 - 02/24/16 [facility] [address] [place] [address]- [phone] Discharge Disposition: Home or Self Care Attending Physician: German Nugent MD Admitting Physician: German Nugent MD Referring Physician: German Nugent MD Vital Signs Most recent to 1 oldest [Reference Range]: Height 165.1 cm (02/24/16 3:04 PM) Weight 93.182 kg (02/24/16 3:04 PM) Body Mass Index 34.19 m2 (02/24/16 3:04 PM) Problem List Condition Effective Dates Status Health Status Informant Fibromyalgia(Confirm Resolved ed) HTN Resolved (hypertension)(Confi rmed) Allergies, Adverse Reactions, Alerts Substance Reaction Severity Status Topamax Active Medications amLODIPine 10 mg oral tablet 10 mg=1 tab, PO, Daily, # 90 tab, 1 Refill(s) Start Date: 02/24/16 Status: Ordered baclofen PO, BID, 0 Refill(s) Start Date: 02/24/16 Status: Ordered Bystolic 10 mg oral tablet 10 mg=1 tab, PO, Daily, # 30 tab, 0 Refill(s) Start Date: 02/24/16 Status: Ordered clonazePAM 10 mg, PO, BID, 0 Refill(s) Start Date: 02/24/16 Status: Ordered Dilaudid 4 mg oral tablet 8 mg=2 tab, PO, Q4H, PRN Pain, 0 Refill(s) Start Date: 02/24/16 Stop Date: 03/02/16 Status: Ordered Lactated Ringers 1,000 mL 1,000 mL, Rate: 40 ml/hr, Infuse over: 25 hr, Route: IV, Dosing Weight 93.182 kg , Total Volume: 1,000, Start date: 02/24/16 15:09:00 SEED AND FERTILIZER SPECIALIST, Duration: 30 day, Stop date: 03/25/16 15:08:00 SEED AND FERTILIZER SPECIALIST Start Date: 02/24/16 Stop Date: 02/24/16 Status: Discontinued Relafen 750 mg, PO, Daily, 0 Refill(s) Start Date: 02/24/16 Status: Ordered Unknown Home Medication Refill(s) 0 Start Date: 02/24/16 Status: Ordered Zanaflex 4 mg oral capsule 4 mg=1 cap, PO, Daily, # 90 cap, 0 Refill(s) Start Date: 02/24/16 Status: Ordered Results IMMUNOLOGY Most recent to 1 oldest [Reference Range]: H pylori Urease Negative [Negative] (02/24/16 4:25 PM) Immunizations No data available for this section Procedures Procedure Date Related Diagnosis Body Site Tilt table test1 02/09/13 1NEGATIVE Social History Social History Type Response Alcohol Past Smoking Status Never smoker; Exposure to Tobacco Smoke None; Cigarette Smoking Last 365 Days No; Reg Smoking Cessation Counseling No Assessment and Plan No data available for this section
--- OUTSIDE RECORDS SUMMARY | 2018-03-02 06:37 | XMS REPORT | Clinical Summary ---
Author Author [facility] Organization [facility] Address Unknown Phone Unavailable Care Team Providers Care Intern Brand Name Role Phone Tayler Parekh MD PCP Allergies Comments Active Allergy Reactions Severity Noted Date Seizure / myoclonus Methadone Other (See 04/16/2016 Comments) Do not remember Topiramate Other (See 07/17/2016 Comments) Medications End Date Status Medication Sig Dispensed Refills Start Date Active levothyroxine (SYNTHROID, TAKE 1 TABLET 4 LEVOXYL) 100 mcg tablet ONCE A DAY 7 ORALLY Active atenolol (TENORMIN) 25 MG Take 25 mg by 0 tablet mouth daily. 7 Active atorvastatin (LIPITOR) 20 Take 20 mg by 0 MG tablet mouth daily. 6 Active baclofen (LIORESAL) 10 MG Take 10 mg by 1 tablet mouth 2 (two) 7 times a day. Active clonAZEPAM (KlonoPIN) 0.5 Take 0.5 mg 1 MG tablet by mouth 2 7 (two) times a day. Active dicyclomine (BENTYL) 10 Take 10 mg by 2 MG capsule mouth 2 (two) 7 times a day. Active hydromorPHONE (DILAUDID) TAKE 1 TABLET 0 4 MG tablet BY MOUTH 7 EVERY 6 HOURS NEEDED FOR PAIN. MAX 4 TABS A DAY. Active DULoxetine (CYMBALTA) 60 Take 120 mg 3 MG capsule by mouth 7 nightly. Active pantoprazole (PROTONIX) TAKE 1 TABLET 2 40 MG EC tablet BY MOUTH 1/2 7 AN HOUR BEFORE BREAKFAST EVERY DAY Active nabumetone (RELAFEN) 750 Take 750 mg 1 MG tablet by mouth 2 7 (two) times a day. Active ondansetron (ZOFRAN) 4 MG Take 4 mg by 0 tablet mouth 4 7 (four) times a day. Active zolpidem (AMBIEN) 10 mg Take 10 mg by 0 tablet mouth 7 nightly. Active triamterene-hydrochloroth Take 1 tablet 2 iazid (MAXZIDE) 75-50 mg by mouth 7 per tablet daily. Active TiZANidine (ZANAFLEX) 4 0 MG capsule 7 Active nebivolol (BYSTOLIC) 10 Take 10 mg by 0 MG tablet mouth 2 (two) times a day. Active fexofenadine (DEMETRICE) Take 180 mg 0 180 MG tablet by mouth daily. Active busPIRone (BUSPAR) 10 MG Take 10 mg by 0 tablet mouth nightly. Active aspirin (ECOTRIN) 81 MG Take 81 mg by 0 enteric coated tablet mouth daily. Active ascorbic acid, vitamin C, Take 1,000 mg 0 (vitamin C) 1000 MG by mouth 2 tablet (two) times a day. Active cholecalciferol, vitamin Take 2,000 0 D3, (VITAMIN D3) 2,000 Units by unit capsule capsule mouth daily. Active krill oil 500 mg capsule Take 1 tablet 0 by mouth daily. Active coenzyme Q10 200 mg Take 200 mg 0 capsule by mouth. Takes 300mg. Active ECHINACEA HERB ORAL Take 1 tablet 0 by mouth daily. Active GOLDENSEAL/ECHINACEA Take 1 tablet 0 PURPUREA by mouth (ECHINACEA-MCKEON SEAL daily. ORAL) Active magnesium oxide (MAG-OX) Take 400 mg 0 400 mg tablet by mouth daily. Active MILK THISTLE ORAL Take 1 tablet 0 by mouth daily. Active TURMERIC-TURMERIC ROOT Take 1 0 EXTRACT ORAL capsule by mouth. With curcumin Active magnesium chloride 64 mg Take 64 mg by 0 tablet,delayed release mouth as (DR/EC) DR tablet needed. Active metoprolol tartrate Take 50 mg by 2 (LOPRESSOR) 50 mg tablet mouth 2 (two) 7 times a day. Active DULoxetine (CYMBALTA) 30 Take 90 mg by 3 MG capsule mouth once 7 daily. Active famotidine (PEPCID) 40 MG Take 40 mg by 6 tablet mouth once 7 daily. 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 Alcohol Use Drinks/Week oz/Week Comments Yes 2 Shots of 1.2 daily liquor Sex Assigned at Date Recorded Not on file Industry Job Start Date Occupation Not on file Not on file Not on file Travel End Travel History Travel Start No recent travel history available. Last Filed Vital Signs Not on file Plan of Treatment Health Maintenance Due Date Last Done Comments CERVICAL CANCER SCREENING 10/02/1980 BREAST CANCER SCREENING 10/02/2009 COLON CANCER SCREENING 10/02/2009 SHINGLES VACCINES (1 of 10/02/2009 2) INFLUENZA VACCINE 09/15/2017 Results Not on fileafter 03/01/2017 Insurance Payer Benefit Subscriber ID Type Phone Address Plan / Group MEDICARE MEDICARE xxxxxxxxxx Medicare [place], [place] PART A AND B Advance Directives Patient has advance care planning documents on file. For more information, salima e contact: Chele Salgado [address] [place] [address]
[2018-03-02] MEDS ORDERED: MINERAL OIL STERILE 10ML VIAL ONE (07:46)
[2018-03-02] MEDS ORDERED: MEPERIDINE HCL INJ 25 MG/ML VIAL ONE (13:29)
[2018-03-02] MEDS ORDERED: ACETAMINOPHEN 1000 MG/100 ML IV PRN (13:45)
[2018-03-02] MEDS ORDERED: NALOXONE HCL INJ 0.4 MG/ML AMP IV PRN (13:45)
[2018-03-02] MEDS ORDERED: PROMETHAZINE HCL (IM) 25 MG/ML VIAL IV PRN (13:45)
[2018-03-02] MEDS ORDERED: FENTANYL CITRATE/PF 100MCG/2 ML INJ ONE (13:46)
[2018-03-02] MEDS ORDERED: ONDANSETRON HCL INJ 2MG/ML 2ML 2 MG/ML VIAL ONE (13:46)
[2018-03-02] MEDS ORDERED: METOCLOPRAMIDE HCL 10 MG/2ML VIAL ONE (13:54)
[2018-03-02] MEDS: FENTANYL 25 MCG/HR PATCH TOP SCH (14:00)
[2018-03-02] MEDS ORDERED: HYDROMORPHONE 2MG/ML 2 MG/ML ML ONE (14:05)
[2018-03-02] MEDS ORDERED: HYDROMORPHONE 0.2MG/ML-SOD CHL 30ML PCA SYRINGE IV ONE (14:05)
[2018-03-02] MEDS ORDERED: PANTOPRAZOLE 40 MG 10ML VIAL ONE (14:35)
[2018-03-02] MEDS: PANTOPRAZOLE 40 MG 10ML VIAL IV SCH (14:37)
--- NOTE | 2018-03-02 15:00 | NUR ---
RECVD PT FROM PACU TRANSFERRED VIA BED. ASSESSMENT COMPLETED AND RECORDED. IS AT BEDSIDE. PT DEMONSTRATE APPROPRIATE USE OF [employer] LIMOUSINE AND STATES TO HAVE PAIN UNDER CONTROL. PT AND SPOUSE ORIENTED TO ROOM AND SURROUNDINGS, REVIEWED POC AND THEY BOTH VERBALIZE UNDERSTANDING AND CONSENT.
--- OUTSIDE RECORDS SUMMARY | 2018-03-02 15:02 | XMS REPORT | Clinical Summary ---
Author Author [facility] Organization [facility] Address Unknown Phone Unavailable Care Team Providers Care Probe Operator Name Role Phone Tayler Parekh MD PCP [...] more information, salima e contact: Chele Salgado [address] [place] [address]
[2018-03-02] MEDS: SODIUM CHLORIDE 0.9% 1000ML 1,000 ML IV SCH ×2 (16:30→22:37)
[2018-03-02] MEDS: SODIUM CHLORIDE 0.9% 250ML IRRIG IR SCH ×3 (16:31→22:37)
[2018-03-02] MEDS: METOPROLOL SUCCINATE 50 MG TAB XL PO SCH (16:32)
--- NOTE | 2018-03-02 16:41 | Operative Report ---
DATE OF PROCEDURE: March 02, 2018 PREOPERATIVE DIAGNOSIS: Status post perforated sigmoid colon with Elsy's procedure. POSTOPERATIVE DIAGNOSIS: Status post perforated sigmoid colon with Elsy's procedure. OPERATIONS PERFORMED: 1. Exploratory laparotomy. 2. Extensive lysis of adhesions. 3. Low anterior resection with resection of the left colon and transanal stapled anastomosis. ANESTHESIA: General. COMPLICATIONS: None. ESTIMATED BLOOD LOSS: 250 mL. DESCRIPTION OF PROCEDURE: With the patient lying in bed in the supine position under good general anesthesia, the abdomen and perineum were prepped with Betadine solution and draped in the usual manner. An elliptical incision was made around the colostomy site. The colostomy was then from the subcutaneous tissue all the way down to the fascia and freed up all the way into the intraabdominal cavity and the colostomy was then stapled shut with an application of the TA-60 stapler. Gloves and instruments were then changed. A midline incision was then made, carried down through the subcutaneous tissue and through the midline fascia. The peritoneum was opened and the abdomen was entered. Upon entering the abdominal cavity, as expected the patient was totally socked in with adhesions. She had had a previous fecal peritonitis from perforated colon roughly about a year ago, and all of the small bowel was stuck all over the abdomen as well as the omentum. Slowly and carefully we all the omentum, and the small bowel was then slowly and carefully dissected free of adhesions from the ligament of Treitz all the way to the terminal ileum. It was stuck to the staple end of the sigmoid colon as well as the uterus. The small bowel was totally freed up. This took over an hour of lysis of adhesions just so that we could get access to the abdominal cavity to do the procedure. Once all of this was done and hemostasis was ascertained, the descending colon was then slowly and carefully mobilized using the Enseal device, and the splenic flexure was brought down. The colon was freed up all the way up to the proximal transverse colon, and the colon was then divided with an application of the KRISHNA-75 stapler at the level of the mid transverse colon and the mesentery. The splenic flexure was taken down with the Enseal device, and the specimen was sent for pathological examination. The colon was then freed up proximally in order to be able to prepare it for anastomosis. Once this was done, then the distal end was freed up from the pelvis from all of the adhesions and prepared for anastomosis as well. The staple line of the proximal transverse colon was then excised, and a 29 EEA anvil was placed into the proximal colon and fixed in position with a purse-string suture of 2-0 Prolene. At this point we went from below and dilated the anus and rectum and the lower sigmoid colon with the dilators all the way up to a size 29. A 29 EEA stapler was then placed transanally and brought out through the anterior wall of the rectosigmoid junction, and the stapler and anvil in the transverse colon were then joined and the stapler was closed and fired. Two doughnuts were obtained. Gloves and instruments and gowns were then changed, and we then went from above again and the anastomosis was further reinforced with interrupted sutures of 3-[address] around. The abdomen was then copiously irrigated, and perfect hemostasis was ascertained. The peritoneum with the colostomy site was then closed with a running suture of number 1 Vicryl. The peritoneum was closed with a running suture of number 1 Vicryl. A 10 flat Chun-Finnegan drain was left in the pelvis and brought out through a separate stab wound incision. The fascia was closed with a running suture of number 1 PDS. The subcutaneous tissue was drained with a [place] drain, and the skin was closed with clips. The fascia of the colostomy site was then closed with interrupted [id number] of number 1 Vicryl. The subcutaneous tissue was approximated with 2-0 chromic, and the skin was closed with interrupted vertical mattress sutures of 2-0 nylon. Dressings were applied. The sponge, lap and needle count was correct. The patient tolerated the procedure well and returned to the recovery room in stable condition. Job#: [id number]
[2018-03-02] MEDS: CEFOXITIN 1GM/ NS 50ML 50 ML IV SCH (17:41)
[2018-03-02] MEDS: HYDROMORPHONE 0.2MG/ML-SOD CHL 30ML PCA SYRINGE IV PRN (21:40)
[2018-03-03] VITALS (23 sets, daily range): BP systolic 99–166; BP diastolic 72–103
[2018-03-03] MEDS: CEFOXITIN 1GM/ NS 50ML 50 ML IV SCH (00:02)
[2018-03-03] MEDS: SODIUM CHLORIDE 0.9% 250ML IRRIG IR SCH ×6 (01:29→21:20)
[2018-03-03 04:52] LABS: BASOPHILS % 0.3 % (0.0-1.0); EOSINOPHILS % 0.1 % (0.0-6.0); HEMATOCRIT 37.9 % (34.2-44.1); HEMOGLOBIN 12.9 g/dL (12.0-16.0); LYMPHOCYTES # (AUTO) 2.4 (1.0-3.2); LYMPHOCYTES % 20.4 % (18.0-39.1); MEAN CORPUSCULAR HEMOGLOBIN 32.2 pg (28-32); MEAN CORPUSCULAR VOLUME 94.5 fL (81-99); MONOCYTES % 8.2 % (4.4-11.3); NEUTROPHILS # (AUTO) 8.3 (2.1-6.9); NEUTROPHILS % 70.7 % (38.7-80.0); PLATELET COUNT 253 x10e3/uL (140-360); RED BLOOD COUNT 4.01 x10e6/uL (3.6-5.1); RED CELL DISTRIBUTION WIDTH 12.8 % (11.7-14.4)
[2018-03-03 05:11] LABS: ANION GAP 11.4 mmol/L (8-16); BLOOD UREA NITROGEN 9 mg/dL (7-26); BUN/CREATININE RATIO 12 (6-25); CARBON DIOXIDE 27 mmol/L (22-29); CHLORIDE 100 mmol/L (98-107); CREATININE, SERUM 0.76 mg/dL (0.57-1.11); EST GLOMERULAR FILTRATION RATE > 60 ML/MIN (60-); GLUCOSE 117 mg/dL (74-118); POTASSIUM 3.4 mmol/L (3.5-5.1); SODIUM 135 mmol/L (136-145)
[2018-03-03 05:22] LABS: CALCIUM 8.2 mg/dL (8.4-10.2)
[2018-03-03] MEDS: SODIUM CHLORIDE 0.9% 1000ML 1,000 ML IV SCH ×3 (05:54→21:38)
[2018-03-03] MEDS: HYDROMORPHONE 0.2MG/ML-SOD CHL 30ML PCA SYRINGE IV PRN ×5 (06:17→21:49)
--- NOTE | 2018-03-03 07:00 | NUR ---
BEDSIDE REPORT RECVD. ASSESSMENT COMPLETED AND RECORDED. PT AND SPOUSE VERBALIZE UNDERSTANDING AND CONSENT WITH CURRENT POC. VSS AND RECORDED.
[2018-03-03] MEDS: METOPROLOL SUCCINATE 50 MG TAB XL PO SCH (08:42)
[2018-03-03] MEDS: FENTANYL 25 MCG/HR PATCH TOP SCH (08:44)
--- NOTE | 2018-03-03 08:57 | NUR ---
PT OOB TO CHAIR VERBALIZES INCREASED DISCOMFORT DURAGESI PATCH PLACE ON LEFT UPPER ARM.
[2018-03-03] MEDS ORDERED: METHOCARBAMOL 100MG/1ML 10ML VIAL IV PRN (10:30)
--- NOTE | 2018-03-03 10:35 | NUR ---
DR Miranda BRADLEY MAKING ROUNDS, CHANGES MADE AND BEING COMPLETED.
[2018-03-03] MEDS: METHOCARBAMOL 100MG/1ML 10ML VIAL IV PRN ×2 (11:28→20:54)
[2018-03-03] MEDS ORDERED: SODIUM CHLORIDE 0.9% 50ML 50 ML ONE ×2 (11:32→20:48)
[2018-03-03] MEDS: PANTOPRAZOLE 40 MG 10ML VIAL IV SCH (14:34)
[2018-03-03] MEDS ORDERED: DEXAMETHASONE SOD PHOS INJ 4 MG/ML VIAL ONE (18:49)
[2018-03-03] MEDS ORDERED: LABETALOL HCL 5 MG/ML 20ML VIAL ONE (18:49)
[2018-03-03] MEDS ORDERED: KETOROLAC TROMETHAMINE 30 MG/ML VIAL ONE (18:49)
[2018-03-03] MEDS ORDERED: CEFOXITIN SOD 1 GM VIAL ONE (18:49)
[2018-03-03] MEDS ORDERED: ONDANSETRON HCL INJ 2MG/ML 2ML 2 MG/ML VIAL ONE (18:49)
[2018-03-03] MEDS ORDERED: SEVOFLURANE INHAL SOLN 250 ML PEN BTL ONE (18:49)
[2018-03-03] MEDS ORDERED: MIDAZOLAM HCL 2 MG/2 ML VIAL ONE (18:49)
[2018-03-03] MEDS ORDERED: HYDRALAZINE HCL 20 MG/ML VIAL ONE (18:49)
[2018-03-03] MEDS ORDERED: PROPOFOL IV EMULSION 10 MG/ML 20 ML VIAL ONE (18:49)
[2018-03-03] MEDS ORDERED: FENTANYL CITRATE/PF 100MCG/2 ML INJ ONE (18:49)
[2018-03-03] MEDS ORDERED: ROCURONIUM BROMIDE 10 MG/ML 5ML VIAL ONE (18:49)
[2018-03-03] MEDS ORDERED: MORPHINE SULFATE INJ 10 MG/ML ONE (18:49)
[2018-03-03] MEDS ORDERED: METOPROLOL SUCCINATE 50 MG TAB XL PO SCH (21:00)
[2018-03-03] MEDS ORDERED: DIAZEPAM INJ 5 MG/ML 2 ML IM ONE (21:15)
[2018-03-03] MEDS: LORAZEPAM INJ 2 MG/ML VIAL IV PRN (21:45)
[2018-03-03] MEDS: PROMETHAZINE 12.5MG/ NACL 0.9% 50 ML IV PRN (21:48)
[2018-03-04] VITALS (24 sets, daily range): BP systolic 111–154; BP diastolic 69–97
[2018-03-04] MEDS: METOPROLOL TARTRATE INJ 1 MG/ML VIAL IV SCH ×4 (00:31→17:05)
[2018-03-04] MEDS: SODIUM CHLORIDE 0.9% 250ML IRRIG IR SCH ×5 (01:58→17:45)
[2018-03-04 04:48] LABS: BASOPHILS % 0.2 % (0.0-1.0); EOSINOPHILS # (AUTO) 0.1 (0.0-0.4); EOSINOPHILS % 0.7 % (0.0-6.0); HEMATOCRIT 32.2 % (34.2-44.1); HEMOGLOBIN 10.9 g/dL (12.0-16.0); LYMPHOCYTES # (AUTO) 2.4 (1.0-3.2); LYMPHOCYTES % 21.9 % (18.0-39.1); MEAN CORPUSCULAR HEMOGLOBIN 32.7 pg (28-32); MEAN CORPUSCULAR HGB CONC 33.9 g/dL (31-35); MEAN CORPUSCULAR VOLUME 96.7 fL (81-99); MONOCYTES # (AUTO) 1.1 (0.2-0.8); MONOCYTES % 10.1 % (4.4-11.3); NEUTROPHILS # (AUTO) 7.4 (2.1-6.9); NEUTROPHILS % 66.7 % (38.7-80.0); PLATELET COUNT 193 x10e3/uL (140-360); RED BLOOD COUNT 3.33 x10e6/uL (3.6-5.1); RED CELL DISTRIBUTION WIDTH 12.8 % (11.7-14.4)
[2018-03-04 05:04] LABS: ANION GAP 8.4 mmol/L (8-16); BLOOD UREA NITROGEN 6 mg/dL (7-26); BUN/CREATININE RATIO 9 (6-25); CALCIUM 8.4 mg/dL (8.4-10.2); CARBON DIOXIDE 28 mmol/L (22-29); CHLORIDE 105 mmol/L (98-107); CREATININE, SERUM 0.66 mg/dL (0.57-1.11); EST GLOMERULAR FILTRATION RATE > 60 ML/MIN (60-); GLUCOSE 98 mg/dL (74-118); POTASSIUM 3.4 mmol/L (3.5-5.1); SODIUM 138 mmol/L (136-145)
[2018-03-04] MEDS: SODIUM CHLORIDE 0.9% 1000ML 1,000 ML IV SCH ×2 (05:29→13:30)
[2018-03-04] MEDS: HYDROMORPHONE 0.2MG/ML-SOD CHL 30ML PCA SYRINGE IV PRN ×3 (06:38→20:05)
[2018-03-04] MEDS: LORAZEPAM INJ 2 MG/ML VIAL IV PRN ×3 (06:42→19:49)
--- NOTE | 2018-03-04 07:05 | NUR ---
Bedside report rec'd from DENTON Addison.
[2018-03-04] MEDS: PIPER-TAZ 3.375 GM 50 ML IV SCH ×2 (11:12→17:05)
--- NOTE | 2018-03-04 13:44 | NUR ---
Patient up OOB to chair independently with standby assurance.
[2018-03-04] MEDS: PANTOPRAZOLE 40 MG 10ML VIAL IV SCH (14:00)
--- NOTE | 2018-03-04 15:08 | NUR ---
Dr Miranda Florez to bedside; NGT removed per order and PO med given with sip of water only as directed.
[2018-03-04] MEDS: DULOXETINE HCL 30 MG DELAYED RELEASE PO SCH (17:01)
--- NOTE | 2018-03-04 19:30 | NUR ---
Received patient alert and oriented, hemodynamically stable, on a hydromorphone stitch bonding machine tender pump. Pain score of 4, no other complaints raised
[2018-03-04] MEDS: PROMETHAZINE 12.5MG/ NACL 0.9% 50 ML IV PRN (20:05)
[2018-03-04] MEDS: BISACODYL 10 MG SUPP PR SCH (21:30)
[2018-03-05] VITALS (13 sets, daily range): BP systolic 121–161; BP diastolic 77–98
--- NOTE | 2018-03-05 01:00 | NUR ---
Patient had first bowel movement post Dulcolax suppository, remains stable on pain management
[2018-03-05] MEDS: SODIUM CHLORIDE 0.9% 1000ML 1,000 ML IV SCH ×2 (02:00→05:34)
[2018-03-05] MEDS: LORAZEPAM INJ 2 MG/ML VIAL IV PRN ×3 (02:58→16:15)
--- NOTE | 2018-03-05 05:00 | NUR ---
Patient with a total of 8 bowel movements, loose stool, moderate. Calm this morning , vitals stable.
[2018-03-05 05:27] LABS: BASOPHILS % 0.2 % (0.0-1.0); EOSINOPHILS # (AUTO) 0.2 (0.0-0.4); EOSINOPHILS % 1.8 % (0.0-6.0); HEMATOCRIT 28.4 % (34.2-44.1); HEMOGLOBIN 9.5 g/dL (12.0-16.0); LYMPHOCYTES # (AUTO) 1.6 (1.0-3.2); LYMPHOCYTES % 17.9 % (18.0-39.1); MEAN CORPUSCULAR HEMOGLOBIN 32.2 pg (28-32); MEAN CORPUSCULAR HGB CONC 33.5 g/dL (31-35); MEAN CORPUSCULAR VOLUME 96.3 fL (81-99); MONOCYTES # (AUTO) 0.7 (0.2-0.8); MONOCYTES % 7.3 % (4.4-11.3); NEUTROPHILS # (AUTO) 6.4 (2.1-6.9); NEUTROPHILS % 72.3 % (38.7-80.0); PLATELET COUNT 177 x10e3/uL (140-360); RED BLOOD COUNT 2.95 x10e6/uL (3.6-5.1); RED CELL DISTRIBUTION WIDTH 12.6 % (11.7-14.4)
[2018-03-05] MEDS: PIPER-TAZ 3.375 GM 50 ML IV SCH ×4 (06:00→18:26)
[2018-03-05] MEDS: METOPROLOL TARTRATE INJ 1 MG/ML VIAL IV SCH ×4 (06:00→18:25)
[2018-03-05 06:02] LABS: BLOOD UREA NITROGEN 7 mg/dL (7-26); BUN/CREATININE RATIO 11 (6-25); CALCIUM 8.2 mg/dL (8.4-10.2); CARBON DIOXIDE 21 mmol/L (22-29); CHLORIDE 108 mmol/L (98-107); CREATININE, SERUM 0.63 mg/dL (0.57-1.11); EST GLOMERULAR FILTRATION RATE > 60 ML/MIN (60-); GLUCOSE 74 mg/dL (74-118); SODIUM 141 mmol/L (136-145)
--- NOTE | 2018-03-05 07:21 | NUR ---
Patient handed over stable
[2018-03-05] MEDS: METHOCARBAMOL 100MG/1ML 10ML VIAL IV PRN (08:42)
[2018-03-05] MEDS: DULOXETINE HCL 30 MG DELAYED RELEASE PO SCH ×3 (09:00→18:25)
[2018-03-05] MEDS: HYDROMORPHONE 0.2MG/ML-SOD CHL 30ML PCA SYRINGE IV PRN (09:40)
[2018-03-05] MEDS ORDERED: POTASSIUM CHLORIDE 20 MEQ TAB CR PO ONE ×3 (12:00→20:00)
[2018-03-05] MEDS: KCL 20MEQ/.9 SOD CHL 1,000 ML IV SCH (12:19)
--- NOTE | 2018-03-05 12:20 | NUR ---
patient sat in chair all morning (x3hrs). tolerated oob well. pt anxious and impatient. Dr. William Florez stated pt can have a few sips of clear liquids but does not want to order a diet until she is tolerating sips of clears. okay with to transfer to med surg 1 only.
[2018-03-05] MEDS: PANTOPRAZOLE 40 MG 10ML VIAL IV SCH (12:47)
--- NOTE | 2018-03-05 12:47 | NUR ---
SOCIAL WORK INITIAL ASSESSMENT Service Unit Operator Oil Well to bedside to discuss plan of care with patient/family. CM/SW role and care transitions discussed. Anticipated discharge plan discussed along with duration of care. CM/SW discussed patients right to make decisions in care. CM/SW work hours given. Patient lives: IN OWN HOUSE WITH FAMILY Admit/Transfer: VIA ED FROM HOME POA/Emergency contact: JOSE [phone] Current/Previous Home Health: NONE PCP/Follow-up Care: WINNIE Current/Previous DME:NONE Other Services: NONE Employment Status: DISABLED Areas of Concerns: NONE Referral Needs: NONE Education Needs: NONE IMM/HALL given and signed (if applicable): NA Goal for discharge: RETURN HOME CM/SW left business card at the bedside with contact information. Name and number was also written on the patients whiteboard. Patient verbalized understanding of discussion. CM will follow-up with ongoing discharge and transition of care needs.
[2018-03-05] MEDS: LIDOCAINE 5% PATCH TP SCH (12:48)
[2018-03-05] MEDS ORDERED: BISACODYL 10 MG SUPP PR ONE (12:53)
[2018-03-05] MEDS: BISACODYL 10 MG SUPP PR SCH (13:10)
[2018-03-05] MEDS: PROMETHAZINE 12.5MG/ NACL 0.9% 50 ML IV PRN (13:10)
--- NOTE | 2018-03-05 15:10 | NUR ---
nursing report given to Brenda CHAWLA for med surg 1 room 100
--- NOTE | 2018-03-05 15:40 | NUR ---
ARRIVED VIA BED FROM ICU, AA&OX3, RA, TRANSPORTATION EQUIPMENT PAINTER VERIFIED WITH ICU NURSE,
--- NOTE | 2018-03-05 15:50 | NUR ---
PT REPOSITIONED, CHANGED ABDOMINAL BINDER TO ONE SIZE UP FOR COMFORT, SIRI INTACT, DIAPER PLACED PER PT REQUEST, BILAT SCD'S PLACED, PILLOW PLACED UNDER LOWER EXTREMITIES PER PT REQUEST, PILLOW GIVEN FOR ABD SPLINT, PT VERBALIZED UNDERSTANDING USE, HOB ELEVATED, CALL LIGHT PLACED WITHIN REACH
--- NOTE | 2018-03-05 15:54 | NUR ---
patient ambulated to bathroom and voided large amount in toilet post allred catheter removal.
--- NOTE | 2018-03-05 17:45 | NUR ---
PT HAD LOOSE STOOL, GREEN IN COLOR, CLEANSED AND DIAPER CHANGED, REPOSITIONED, CALL LIGHT WITHIN REACH
--- NOTE | 2018-03-05 18:20 | NUR ---
LINENS CHANGED AGAIN, PT HAD LARGE LOOSE STOOL GREEN IN COLOR, WITH STANDBY ASSIST AND USE OF WALKER, PT AMBULATED TO BR TO CONTINUE BM, CLEANSED, STANDBY ASSIST BACK TO BED, REPOSITIONED, CALL LIGHT WITHIN REACH
--- NOTE | 2018-03-05 19:38 | NUR ---
Received change of shift report from Am nurse. Walking rounds completed.
[2018-03-05] MEDS ORDERED: POTASSIUM CHLORIDE 20 MEQ TAB CR PO SCH (20:45)
[2018-03-06] VITALS (7 sets, daily range): BP systolic 143–168; BP diastolic 82–95
--- NOTE | 2018-03-06 | NUR ---
Patient AAOx3. Using COMBAT SYSTEMS OPERATOR MINE [employer]FARE for pain management. IV dry and intact. Patient NPO with sips of water only. Patient verbalized understanding.
[2018-03-06] MEDS: LORAZEPAM INJ 2 MG/ML VIAL IV PRN ×2 (00:11→13:45)
--- NOTE | 2018-03-06 05:13 | NUR ---
Patient c/o of redness and itching to left upper arm. S/W Dr Florez orders received.
[2018-03-06] MEDS: PIPER-TAZ 3.375 GM 50 ML IV SCH ×5 (06:00→23:44)
[2018-03-06] MEDS: METOPROLOL TARTRATE INJ 1 MG/ML VIAL IV SCH ×5 (06:00→23:43)
--- NOTE | 2018-03-06 06:41 | NUR ---
IV infiltrated. Restarted 22G to left handx1 stick. Patient tolerated well.
[2018-03-06] MEDS: HYDROMORPHONE 0.2MG/ML-SOD CHL 30ML PCA SYRINGE IV PRN ×2 (07:00→18:15)
[2018-03-06] MEDS: DULOXETINE HCL 30 MG DELAYED RELEASE PO SCH ×2 (08:40→20:54)
[2018-03-06] MEDS: PROMETHAZINE 12.5MG/ NACL 0.9% 50 ML IV PRN ×2 (08:40)
[2018-03-06] MEDS: LIDOCAINE 5% PATCH TP SCH (08:40)
[2018-03-06] MEDS ORDERED: FENTANYL 25 MCG/HR PATCH TOP SCH (09:00)
--- NOTE | 2018-03-06 09:00 | NUR ---
PT REPORT SHE TAKES CYMBALTA IN AM AND HS, EMAR NOTED
--- NOTE | 2018-03-06 12:42 | NUR ---
CONTINUES TO SIT IN CHAIR, CALL LIGHT WITHIN REACH
--- NOTE | 2018-03-06 13:30 | NUR ---
AMBULATED IN HALLWAY, WITH STEADY GAIT, NURSE AT SIDE
[2018-03-06] MEDS: PANTOPRAZOLE 40 MG 10ML VIAL IV SCH (13:39)
[2018-03-06] MEDS: KCL 20MEQ/.9 SOD CHL 1,000 ML IV SCH ×2 (13:39)
--- NOTE | 2018-03-06 14:05 | NUR ---
Visit made by the Spiritual Care Department Pastoral Visitor, Cindi Rajput. PV provided pastoral presence, prayer, hospitality, and supportive listening. Pastoral Visitor informed pt/family of the scope of Pipe Organ Builder Services and availability. OVIDIO CAPUTO Director Of Training Spiritual Care Department O: [phone] Pager: [phone] ([phone] number calling from)
--- NOTE | 2018-03-06 19:18 | NUR ---
Received change of shift report from Am nurse. Walking rounds completed.
--- NOTE | 2018-03-06 19:35 | NUR ---
Patient in bed in supine position. AAOx3. Pain level at a 4 with Dilaudid CANDLE WRAPPING MACHINE OPERATOR pump. Encouraged to push the pain button. IV intact. Patient had a med size formed dark BM. Dressing to abd. dry and intact with abd binder on. SIRI drain with small amount of bloody fluid.
[2018-03-07] VITALS (7 sets, daily range): BP systolic 135–156; BP diastolic 77–95
[2018-03-07] MEDS: KCL 20MEQ/.9 SOD CHL 1,000 ML IV SCH ×2 (01:00→13:37)
--- NOTE | 2018-03-07 05:05 | NUR ---
Patient resting quitly at this time. Continue monitor.
[2018-03-07] MEDS: PIPER-TAZ 3.375 GM 50 ML IV SCH (05:08)
[2018-03-07] MEDS: METOPROLOL TARTRATE INJ 1 MG/ML VIAL IV SCH ×2 (05:11→12:00)
[2018-03-07 06:35] LABS: BLOOD UREA NITROGEN < 5 mg/dL (7-26); CALCIUM 8.7 mg/dL (8.4-10.2); CARBON DIOXIDE 27 mmol/L (22-29); CHLORIDE 105 mmol/L (98-107); CREATININE, SERUM 0.58 mg/dL (0.57-1.11); EST GLOMERULAR FILTRATION RATE > 60 ML/MIN (60-); GLUCOSE 105 mg/dL (74-118); SODIUM 141 mmol/L (136-145)
[2018-03-07 06:40] LABS: BUN/CREATININE RATIO 9 (6-25)
--- NOTE | 2018-03-07 07:00 | NUR ---
SHIFT REPORT RECEIVED FROM BUSINESS SYSTEMS DEVELOPER RN WHILE ROUNDING. PT DENIES NEEDS AT THIS TIME.
[2018-03-07] MEDS: LIDOCAINE 5% PATCH TP SCH (09:06)
[2018-03-07] MEDS: DULOXETINE HCL 30 MG DELAYED RELEASE PO SCH ×2 (09:06→20:18)
[2018-03-07] MEDS: LORAZEPAM INJ 2 MG/ML VIAL IV PRN (11:15)
--- NOTE | 2018-03-07 15:07 | NUR ---
CM SPOKE TO PATIENT AT BEDSIDE REGARDING IMM LETTER. IMM LETTER GIVEN WITH EXPLANATION. ORIGINAL SIGNED AND PLACED IN CHART; COPY OF ORIGINAL DOCUMENT GIVEN TO PATIENT AT BEDSIDE AND PLACED IN CARE TRANSITION FOLDER. CM CONTACT INFORMATION GIVEN TO PATIENT FOR ANY NEEDS OR CONCERNS. PATIENT WITH NO FURTHER QUESTIONS.
--- NOTE | 2018-03-07 16:22 | NUR ---
CM INITIAL ASSESSMENT CM SPOKE WITH PATIENT AT BEDSIDE. PATIENT LIVES HOME WITH AND USES A WALKER FOR MOBILITY. PATIENT STATES AT THIS TIME SHE DOES NOT HAVE ANY NEEDS. PATIENT CAME THROUGH THE ED INDEPENDENT AND STATES HER GOAL IS TO DISCHARGE INDEPENDENT WITH NO NEEDS. CM GAVE PATIENT CONTACT INFORMATION FOR ANY QUESTIONS OR CONCERNS.
[2018-03-07] MEDS: PROMETHAZINE 12.5MG/ NACL 0.9% 50 ML IV PRN (17:48)
--- NOTE | 2018-03-07 19:00 | NUR ---
Received patient aaox3, stable condition, sitting up in bed with family member to bedside. no needs voiced at this time. will continue to monitor the patient closely.
[2018-03-07] MEDS: HYDROCODONE/APAP 7.5MG-325MG 1 EA TAB PO PRN (20:18)
--- NOTE | 2018-03-07 20:19 | NUR ---
patient ambulated hallway. tolerated well. medicated for pain upon returning to bed, see emar.
[2018-03-07] MEDS: HYDROMORPHONE 2MG/ML 2 MG/ML ML IV PRN (22:09)
[2018-03-07] MEDS: METHOCARBAMOL 100MG/1ML 10ML VIAL IV PRN (23:21)
[2018-03-08] VITALS (8 sets, daily range): BP systolic 145–169; BP diastolic 80–99
[2018-03-08] MEDS: KCL 20MEQ/.9 SOD CHL 1,000 ML IV SCH ×2 (02:00→14:30)
[2018-03-08] MEDS: HYDROCODONE/APAP 7.5MG-325MG 1 EA TAB PO PRN ×4 (02:58→17:43)
--- NOTE | 2018-03-08 07:00 | NUR ---
SHIFT REPORT RECEIVED FROM MARINE EQUIPMENT SALES ENGINEER RN WHILE ROUNDING. PT DENIES NEEDS AT THIS TIME.
[2018-03-08] MEDS: DULOXETINE HCL 30 MG DELAYED RELEASE PO SCH (09:28)
[2018-03-08] MEDS: LIDOCAINE 5% PATCH TP SCH (09:28)
[2018-03-08] MEDS: HYDROMORPHONE 2MG/ML 2 MG/ML ML IV PRN (15:02)
[2018-03-08] MEDS: PROMETHAZINE 12.5MG/ NACL 0.9% 50 ML IV PRN (17:33)
--- NOTE | 2018-03-08 20:02 | NUR ---
patient discharged via wheelchair to private auto, aaox3 in stable condition. patient received discharge instructions, verbalized understanding to f/u with MD. teaching provided with surgical dressing, and erin drain care. patient and deny any further questions or concerns.
== END 2018-03-08 20:02 | disposition home or self-care (01) | DRG 331 ==
LOC: OR 06:34 → PACU V 13:38 → ICU 15:02 → MED/SURG 03-05 15:38 → UNDODISIN 03-07 11:40
PROVIDERS: ADMIT Surgery; ATTEND Surgery
PROC: 0DNU0ZZ Release Omentum, Open Approach (ICD-10-PCS; 2018-03-02)
PROC: 0DN80ZZ Release Small Intestine, Open Approach (ICD-10-PCS; 2018-03-02)
PROC: 0DBL0ZZ Excision of Transverse Colon, Open Approach (ICD-10-PCS; principal; 2018-03-02 08:47)
DX: Z43.3 Encounter for attention to colostomy (principal); G89.4 Chronic pain syndrome; Z88.5 Allergy status to narcotic agent; I10 Essential (primary) hypertension; R50.9 Fever, unspecified; K66.0 Peritoneal adhesions (postprocedural) (postinfection)
CPT/HCPCS: 36415; 80048; 85025; 86850; 86900; 88307; 93005; 96361; J0360; J0694; J1100; J1885; J2060; J2175; J2250; J2270; J2405; J2543; J2550; J2765; J2800; J7030

== ENCOUNTER → 2019-07-31 | Day surgery (SDC) | payer MEDICARE, OTHER ==
[2019-07-27 14:15] LABS: ANION GAP 13.8 mmol/L (8-16); BLOOD UREA NITROGEN 25 mg/dL (7-26); BUN/CREATININE RATIO 27 (6-25); CALCIUM 9.2 mg/dL (8.4-10.2); CARBON DIOXIDE 32 mmol/L (22-29); CHLORIDE 100 mmol/L (98-107); CREATININE, SERUM 0.92 mg/dL (0.57-1.11); EST GLOMERULAR FILTRATION RATE > 60 ML/MIN (60-); GLUCOSE 86 mg/dL (74-118); POTASSIUM 3.8 mmol/L (3.5-5.1); SODIUM 142 mmol/L (136-145)
[~2019-07-31] MED LIST changes: +ASHWAGANDHA PO; +BIOTIN5000 MCG PO; +CEFAZOLIN SOD 1 GM/NS 50ML 50 ML IV ONE; +CO Q-10300 MG PO; +ECHINACEA & GO1 EACH PO; +FENTANYL CITRATE/PF 100MCG/2 ML INJ ONE; +FENTANYL1 EAC1 TD; -FENTANYL1 EAC1 TOP; +HYDROCODON-ACE1 EAC9 PO; +JOINT SUPPORT1 EACH PO; +LAMOTRIGINE100 MG PO; +LIDOCAINE HCL 2% LOCAL INJ 5 ML SDV VIAL INJ ONE; +MIDAZOLAM HCL 2 MG/2 ML VIAL ONE; +MILK THISTLE175 M2 PO; +MUCINEX PO; +NIACIN500 M2 PO; +OMEGA 3 FISH O1 EACH PO; +ONDANSETRON HCL INJ 2MG/ML 2ML 2 MG/ML VIAL ONE; +PROPOFOL IV EMULSION 10 MG/ML 20 ML VIAL ONE; +SEVOFLURANE INHAL SOLN 250 ML PEN BTL ONE; +TURMERIC 500 M1 EACH PO; +VITAMIN D325 MCG PO
[2019-07-31 08:52] VITALS: BP 131/81
--- NOTE | 2019-07-31 13:24 | Operative Report ---
DATE OF PROCEDURE: 07/31/2019 SURGEON: Luis Manuel Mclean MD ASSISTANT CURATOR: Kalpesh Fernandez, certified PA. PREOPERATIVE DIAGNOSIS: Right carpal tunnel syndrome. POSTOPERATIVE DIAGNOSIS: Right carpal tunnel syndrome. PROCEDURE: Right endoscopic carpal tunnel release. INDICATIONS: The patient is a 58-year-old lady, who has clinic signs and symptoms consistent with right carpal tunnel syndrome. She has failed conservative management and would like to proceed with definitive surgical intervention. The risks and benefits of an endoscopic versus open carpal tunnel release have been explained. All of her questions have been answered. She originally was scheduled to have both sides done, but decided that she wanted to just have the right side done. PROCEDURE IN DETAIL: The patient was brought to the operating room and placed under general anesthetic. Her right upper extremity was prepped and draped in a sterile manner. A preoperative time-out was performed. The extremity was exsanguinated and a proximal tourniquet was briefly inflated to 250 mmHg. An incision was made over the flexion crease of the right wrist. The palmaris longus tendon was retracted to the radial side of the wound. The flexor retinaculum was elevated and incised. An elevator was used to tease the tenosynovium off the undersurface of the transverse carpal ligament. Dilators were placed and the hook of the hamate was palpated. The MicroAire endoscope was placed into the carpal tunnel. The undersurface of the transverse carpal ligament was cleanly visualized without evidence of soft tissue interposition. The knife was deployed and the ligament was cut from distal to proximal. The proximal retinaculum was incised under direct visualization. The incision was closed with two interrupted nylon stitches. A sterile bandage was applied. She was extubated and transported to the recovery room in stable condition. There was no blood loss and all needle and sponge counts were correct. Luis Manuel Mclean MD DR/CHARLA /[id number]
== END | disposition home or self-care (01) ==
LOC: OR 05:13
PROVIDERS: ATTEND Specialist
DX: G56.01 Carpal tunnel syndrome, right upper limb (principal); G89.29 Other chronic pain; M17.12 Unilateral primary osteoarthritis, left knee; I10 Essential (primary) hypertension; E03.9 Hypothyroidism, unspecified; M46.90 Unspecified inflammatory spondylopathy, site unspecified; R00.1 Bradycardia, unspecified; Z88.6 Allergy status to analgesic agent; Z01.810 Encounter for preprocedural cardiovascular examination; Z01.812 Encounter for preprocedural laboratory examination; Z11.59 Encounter for screening for other viral diseases; Z79.82 Long term (current) use of aspirin; Z98.1 Arthrodesis status; Z87.891 Personal history of nicotine dependence
CPT/HCPCS: 29848; 36415; 80048; 87635; 93005; J0690; J2001; J2250; J2405; J2704; J3010

== ENCOUNTER → 2023-11-15 | Outpatient (REF) | payer MEDICARE ==
[~2023-11-15] MED LIST changes: -CEFAZOLIN SOD 1 GM/NS 50ML 50 ML IV ONE; +DEXMEDETOMIDINE HCL 2 ML ONE; -FENTANYL CITRATE/PF 100MCG/2 ML INJ ONE; -LIDOCAINE HCL 2% LOCAL INJ 5 ML SDV VIAL INJ ONE; -MIDAZOLAM HCL 2 MG/2 ML VIAL ONE; -ONDANSETRON HCL INJ 2MG/ML 2ML 2 MG/ML VIAL ONE; -PROPOFOL IV EMULSION 10 MG/ML 20 ML VIAL ONE; -SEVOFLURANE INHAL SOLN 250 ML PEN BTL ONE
== END ==
LOC: MRI 09:33
PROVIDERS: ATTEND Internal Medicine
DX: M54.40 Lumbago with sciatica, unspecified side (principal)
CPT/HCPCS: 72148